=== PATIENT | male | born 1945 | race Caucasian/White ===

== ENCOUNTER 2019-09-02 09:46 | Outpatient (CLI) | payer OTHER, MEDICARE, SELFPAY ==
--- NOTE | 2019-09-02 10:00 | CT_ITS ---
WS: [id number] CT LUNG CANCER SCREENING DLP: 76.83 mGy.cm DIvol: 2.12 mGy CLINICAL INFORMATION SCREENING VISIT: Baseline COMPARISON: None available. FINDINGS Diagnostic quality: Satisfactory Comments: Very minimal motion artifact at the lung bases. Lung Nodules: No pulmonary nodules are identified. Lungs: Hyperinflated lungs with changes of emphysema. Benign granuloma at the medial RIGHT apex. No e ndobronchial lesions. Heart: Normal size. Other findings: Moderate atherosclerosis of the aorta. No aneurysm. There is extensive calcification within the LEFT anterior coronary artery. Mild calcification in the main coronary and circumflex and RIGHT coronary artery. Normal size pulmonary artery. CT/CT lung screening [id number] IMPRESSION: LUNG-RADS: 1S-Negative with Significant Findings FOLLOW UP: 12 Month: Continue annual screening with LDCT 1. Moderate coronary artery atherosclerosis.
== END 2019-09-02 09:47 | disposition home or self-care (01) ==
LOC: RAD 09:55
PROVIDERS: PCP Emergency Medicine Emergency Medical Services; Visit Provider Internal Medicine Critical Care Medicine
DX: Z12.2 Encounter for screening for malignant neoplasm of respiratory organs (principal); F17.210 Nicotine dependence, cigarettes, uncomplicated; I25.10 Atherosclerotic heart disease of native coronary artery without angina pectoris
CPT/HCPCS: G0297

== ENCOUNTER 2019-10-02 06:53 | Outpatient (CLI) | payer OTHER, SELFPAY ==
--- NOTE | 2019-10-02 14:33 | PFTS_ITS ---
Date of Study:10/02/19 Date of Dictation: MECHANICS: Forced vital capacity (FVC) is normal. Forced expiratory volume in one second (FEV1) is reduced. FEV1/FVC is reduced. FLOW VOLUME LOOP: Reduced right lung volumes with significant. LUNG VOLUMES: Total lung capacity (TLC) is elevated. Residual volume (RV) is elevated. DIFFUSING CAPACITY FOR CARBON MONOXIDE: Moderately reduced. INTERPRETATION: The pulmonary function tests are consistent with moderate airflow obstruction. There is no significant postbronchodilator response. Lung volumes are consistent with air trapping and hyperinflation. Gas exchange (DLCO) is moderately reduced. MTDD
== END 2019-10-02 06:54 | disposition home or self-care (01) ==
LOC: RT 06:54
PROVIDERS: Family Provider Emergency Medicine Emergency Medical Services; PCP Emergency Medicine Emergency Medical Services; Visit Provider Internal Medicine Critical Care Medicine
DX: J44.9 Chronic obstructive pulmonary disease, unspecified (principal)
CPT/HCPCS: 94060; 94726; 94729; J7611

== ENCOUNTER 2020-04-06 06:54 | Outpatient (CLI) | payer OTHER, SELFPAY ==
--- NOTE | 2020-04-06 | XR_ITS ---
WS: [id number] Exam: XR chest 2V* [id number] Date/Time of Exam: 04/06/2020 7:41 AM Reason For Exam: NEOPLASM OF UNCERTAIN BEHAVIOR OF TONGUE Comparison 02/23/2010. The lungs are hyperinflated and clear. Normal cardiomediastinal structures and bony elements. No pleu ral effusion. XR/XR chest 2V* [id number] IMPRESSION: 1. Pulmonary hyperinflation which might indicate obstructive lung disease. No a cute process.
[2020-04-06 07:39] LABS: Basophils # 0.2 10^3/uL (0.0-0.1); Basophils % 1.5 %; Eosinophils # 0.2 10^3/uL (0.0-0.8); Eosinophils % 2.1 %; Hematocrit 44.3 % (42.0-52.0); Hemoglobin 14.2 g/dL (11.7-16.6); Lymphocytes # 1.8 10^3/uL (0.8-4.8); Mean Corpuscular HGB Conc 32.1 g/dL (30.0-36.0); Mean Corpuscular Hemoglobin 29.7 pg (28.0-34.0); Mean Corpuscular Volume 92.7 fL (80-94); Mean Platelet Volume 9.7 fL (7.4-10.4); Neutrophils # 7.13 10^3/uL (1.8-7.7); Nucleated Red Blood Cells % 0 %; Platelet Count 286 10^3/cmm (130-400); Red Blood Count 4.78 10^6/uL (4.1-5.3); Red Cell Distribution Width 13.3 % (12.1-15.1); White Blood Count 10.3 10^3/uL (4.0-10.0)
[2020-04-06 08:07] LABS: Alanine Aminotransferase 11 U/L (0-41); Albumin Level 3.7 g/dL (3.5-5.2); Alkaline Phosphatase 120 IU/L (40-130); Anion Gap 13.8 (5-19); Aspartate Amino Transferase 14 U/L (0-40); Blood Urea Nitrogen 9 mg/dL (8-23); Carbon Dioxide 26 mmol/L (22-29); Chloride 102 mmol/L (98-107); Glucose 126 mg/dL (65-115); Osmolality Calculated 284 mOsm/kg (285-295); Potassium 4.8 mmol/L (3.5-5.1); Sodium 137 mmol/L (136-145); Thyroid Stimulating Hormone 2.68 uIU/mL (0.27-4.20); Total Bilirubin 0.4 mg/dL (0.15-1.2); Total Protein 6.7 g/dL (6.6-8.7)
== END 2020-04-06 06:55 | disposition home or self-care (01) ==
PROVIDERS: PCP Emergency Medicine Emergency Medical Services; Visit Provider Specialist
DX: D37.02 Neoplasm of uncertain behavior of tongue (principal)
CPT/HCPCS: 36415; 71046; 80053; 84443; 85025

== ENCOUNTER 2020-04-06 08:05 | Outpatient (CLI) | payer OTHER, SELFPAY ==
--- NOTE | 2020-04-06 08:17 | CT_ITS ---
WS: [id number] Exam: CT neck w con* [id number] Date/Time of Exam: 04/06/2020 8:17 AM Reason For Exam: NEOPLASM OF UNCERTAIN BEHAVIOR OF TONGUE DLP: 1771.[address] scans at [facility] use at least one of these dose optimization techniques: automat ed exposure control; mA and/or kV adjustment per patient size (includes targeted exams where dose is matched to clinical indication); or iterative reconstruction. The neck is evaluated in the axial plane with sagittal and coronal reformatted images. 100 mL of angelica onic contrast administered intravenously. No sign of neck mass or significant cervical lymphadenopathy. No lesions seen in the region of the to ngue base. The submandibular glands and parotid glands are symmetrical side to side. The airway is pa tent. Vascular structures are unremarkable. Fluid-filled left maxillary sinus. Remaining facial sinus es were clear. No fracture or bone destruction noted. Visualized upper lung zones are clear. 6.7 mm l ow-attenuation nodule in the right thyroid lobe which may represent a colloid cyst. No superior media stinal lymphadenopathy. Degenerative changes of the cervical spine. Posterior disc bulge at C3-4. Deg enerative disc changes at C6-7. CT/CT neck w con* [id number] IMPRESSION: 1. No sign of neck mass or significant cervical lymphadenopathy. 2. Fluid-filled left maxillary sinus. 3. Nonspecific 6.7 mm low-density nodule in the right thyroid lobe that may rep resent a colloid cyst. 4. Other minor findings as detailed above.
[2020-04-06] MEDS: iohexol 300 mg/mL 100 mL Btl IV (08:45)
== END 2020-04-06 08:06 | disposition home or self-care (01) ==
LOC: RADWPI 08:09
PROVIDERS: PCP Emergency Medicine Emergency Medical Services; Visit Provider Specialist
DX: D37.02 Neoplasm of uncertain behavior of tongue (principal); E04.1 Nontoxic single thyroid nodule
CPT/HCPCS: 70491; Q9967

== ENCOUNTER 2020-06-09 14:19 | Emergency (ER) | payer OTHER, MEDICARE, SELFPAY ==
[2020-06-09 14:23] VITALS: BP 99/56; PULSE 71; RESP 26; TEMP 37; O2SAT 97; BMI 24.4
--- NOTE | 2020-06-09 14:32 | XR_ITS ---
WS: [id number] Portable AP upright chest, 06/09/2020 Clinical Data: dyspnea Comparison: PA and lateral chest, 04/06/2020. Findings: No nodules, masses or effusions are seen. The heart is normal. The pulmonary vascularity is not increased. No pneumonia or pneumothorax is seen. The aortic arch and descending aorta show calci fication and tortuosity. XR/XR chest 1V portable [id number] Impression: Atherosclerosis.
--- NOTE | 2020-06-09 14:35 | ECG_ITS ---
[facility] Test Date: 2020-06-09 Pat Name: Asif Sky Department: Room: Gender: Male [employer]: : 1945 Requested By: Ivan Lambert Order Number: [id number] Jacobo MD: Nick Booker M.D. Measurements Intervals Theresa Rate: 66 P: -82 AL: 197 QRS: 29 QRSD: 101 T: 69 QT: 365 QTc: 384 Interpretive Statements SINUS RHYTHM No previous ECG available for comparison Electronically Signed On 06-09-2020 20:56:28 [employer] by Nick Booker M.D. [email or web address]
--- NOTE | 2020-06-09 14:42 | ED_ITS ---
Documented by User: Ivan Lambert MD 06/13/20 13:39 HPI - SOB/Dyspnea General: Chief Complaint: Shortness of Breath/Dyspnea Stated Complaint: CONFUSION, SOB Time Seen by Provider: 06/09/20 14:23 History of Present Illness: HPI Narrative: the patient is a 75 year old male with PMH COPD and tongue cancer s/p left forearm muscle autotransplantation to his tongue. The surgery was early may. Left forearm has open wound with exposed tendon and erythema likely cellulitis. MD elicited complaint: shortness of breath Pertinent past history: COPD Onset (ago): day(s) (1) Context: medication noncompliance and other (smoking) Timing: constant and progressively worsening Exacerbating factors: exertion Relieving factors: nothing Known history of: COPD Associated symptoms: Deny abdominal pain, chest pain, dizziness, extremity pain, orthopnea, palpitations or polyuria Review of Systems General: Reports: 10 or more systems reviewed and unremarkable except in HPI and below Const: Denies: fatigue Eyes: Denies: change in vision, blurry vision or eye redness ENMT: Denies: throat pain, swelling of lips/tongue, ear or mastoid pain or nasal congestion Card: Denies: chest pain, palpitations, irregular heart rhythm, edema, dyspnea on exertion or orthopnea Resp: Reports: dyspnea, non-productive cough and wheezing; Denies: productive cough GI: Denies: abdominal pain, diarrhea or GI cramping : Denies: flank pain, urinary frequency or urinary urgency Musc: Denies: neck pain, back pain, extremity pain, joint pain, joint redness, limited range of motion or muscle weakness Skin/Breast: Reports: rash and skin pain (left forearm); Denies: pruritus, erythema or skin tenderness Neuro: Denies: headache(s), numbness in extremities, weakness in extremities, sensory changes, difficulty walking, dizziness, confusion or Slurred speech present Psych: Denies: anxiety or depression Endo: Denies: polyuria All/Imm: Denies: urticaria, throat swelling or tongue swelling PFSH ED PFSH: Medical History (Updated 06/09/20 @ 20:08 by Perry Felton MD) BPH (benign prostatic hyperplasia) Chronic ischemic heart disease COPD (chronic obstructive pulmonary disease) Depression with anxiety HTN (hypertension) Hypercalcemia Hyperlipidemia Impotence Lumbago MIKE (obstructive sleep apnea) PVD (peripheral vascular disease) Type 2 diabetes mellitus Social History Smoking and tobacco status: current every day smoker cigarettes Packs smoked per day: 1 Years cigarettes smoked: 55 Quit status (tobacco): not considering quitting Alcohol intake: current Alcohol intake frequency: 0-2 Drinks per Day Alcohol type: beer Caregiver/support person: Yes Lives independently: Yes Household members: family service: Yes Current occupational status: retired and disabled History of recent travel: No Current gender identity: Male Physical Exam Const: COMMON NORMALS: patient oriented x3 and alert GENERAL APPEARANCE: well kempt, disheveled and frail appearing ORIENTATION/CONSCIOUSNESS: Yes oriented to person, Yes oriented to place and Yes oriented to time HENMT: COMMON NORMALS: normocephalic, external ears normal and Normal external nose present HEAD & SCALP: normal to inspection and normocephalic NOSE: Normal external nose present EXTERNAL EAR: Yes external ears normal MOUTH: Normal oral and palatal mucosa present THROAT: posterior oropharynx normal Eye: COMMON NORMALS: Equal, round and reactive pupils present and EOMs intact bilaterally GENERAL EYE: appearance normal, both eyes and all related structures PUPIL: Yes Equal, round and reactive pupils present Neck/C-Spine: COMMON NORMALS: full ROM, no lymphadenopathy, no meningeal signs and no JVD GENERAL: Yes normal visual inspection Lymph: LYMPHATIC: no lymphadenopathy noted Chest: COMMONS NORMALS: normal inspection of the chest and normal palpation of entire chest wall Resp: EFFORT & INSPECTION: Yes tachypneic, Yes respiratory distress (mild increased work of breathing.), Yes uses accessory muscles and Yes other OTHER: hoarse breathing and voice. Tongue autotransplantation seen. Wheezes bilaterally. Shallow breathing. Tachypnea. Cardio: COMMON NORMALS: no JVD, regular rate, regular rhythm, S1 normal heart sound present, S2 normal heart sound present and Peripheral pulses 2+ throughout RATE: regular rate RHYTHM: regular rhythm HEART SOUNDS: S1 normal heart sound present and S2 normal heart sound present PERIPHERAL PULSES: Peripheral pulses 2+ throughout GI: COMMON NORMALS: Normal to inspection, nondistended, normoactive bowel sounds present, Soft to palpation, non-tender and no masses INSPECTION: Yes normal to inspection PALPATION: Yes Soft to palpation : COMMON NORMALS: Yes no CVA tenderness BLADDER/KIDNEY EXAM: Yes no CVA tenderness Back/Pelvis: COMMON NORMALS: no CVA tenderness, thoracic and lumbar spine normal to inspection, no thoracic nor lumbar tenderness and thoraco-lumbar ROM normal Extremity: COMMON NORMALS: normal to inspection, full ROM, capillary refill normal, no joint enlargement and no pedal edema GENERAL: Yes normal exam except as noted Neuro: COMMON NORMALS: patient oriented x3, CN's II-XII intact bilaterally, moves all extremities, no focal motor deficits, no sensory deficits noted and gait normal SENSORIUM/ORIENTATION: Yes alert, Yes oriented to person, Yes oriented to place and Yes oriented to time MENINGEAL SIGNS: Yes no meningeal signs Psych: COMMON NORMALS: mental status grossly normal, Normal thought process present, cooperative, normal affect and speech normal APPEARANCE: Yes well kempt ATTITUDE: Yes calm SPEECH: Yes normal speech THOUGHT PROCESS: Normal thought process present Skin: COMMON NORMALS: no rashes or lesions noted NARRATIVE SKIN EXAM: left forearm length pollack surgical wound 8 to 10 inches long with 3 to 5 cm surrounding cellulitis. Worse at distal aspect wound open with tendon exposed. GENERAL SKIN EXAM: no rashes or lesions noted Course Vital Signs: Vital signs: Vital Signs Temperature 97.4 F L 06/09/20 21:08 Pulse Rate 63 06/09/20 21:08 Respiratory Rate 21 H 06/09/20 21:08 Blood Pressure 110/59 06/09/20 21:08 Pulse Oximetry 97 06/09/20 21:08 MDM - SOB/Dyspnea Lab Data: Labs: Lab Results 06/09/20 06/09/20 06/09/20 Range/Units 14:35 15:14 15:26 WBC (4.0-10.0) 10^3/ uL RBC (4.1-5.3) 10^6/u L Hgb (11.7-16.6) g/dL Hct (42.0-52.0) % MCV (80-94) fL MCH (28.0-34.0) pg MCHC (30.0-36.0) g/dL RDW (12.1-15.1) % Plt Count (130-400) 10^3/c mm MPV (7.4-10.4) fL Neut % (Auto) % Lymph % (Auto) % [place] % (Auto) % Eos % (Auto) % Baso % (Auto) % Neut # (Auto) (1.8-7.7) 10^3/u L Lymph # (Auto) (0.8-4.8) 10^3/u L [place] # (Auto) (0.2-0.9) 10^3/u L Eos # (Auto) (0.0-0.8) 10^3/u L Baso # (Auto) (0.0-0.1) 10^3/u L Nucleated RBC % (a uto) % Nucleated RBCs # /100WBC Specimen Type Arterial Sample Site Radial, right ABG pH 7.42 (7.35-7.45) ABG pCO2 43.5 (35-45) mmHg ABG pO2 75.9 L (80.0-100.0) mmH g ABG HCO3 28.2 H (22-26) mmol/L ABG Base Excess 3.3 H (-2.0-2.0) mmol/ L Ammon Test Pos Hematocrit 32.0 L (42-52) % Hgb O2 Saturation 93.5 L (95-100) % Carboxyhemoglobin 1.4 (0.4-20.1) %THgb Methemoglobin 0.8 (0.4-1.5) % Total Hemoglobin 10.4 L (14-18) g/dL O2 Delivery Device Nc O2 Liters/Min 3.0 % FiO2 32.0 % [employer] ID [place] Sodium (136-145) mmol/L Potassium (3.5-5.1) mmol/L Chloride (98-107) mmol/L Carbon Dioxide (22-29) mmol/L Anion Gap (5-19) BUN (8-23) mg/dL Creatinine (0.7-1.2) mg/dL GFR Calculation Glucose (65-115) mg/dL Calculated Osmolal ity (285-295) mOsm/k g Lactate (0.5-2.2) mmol/L Calcium (8.5-10.5) mg/dL Total Bilirubin (0.15-1.2) mg/dL AST (0-40) U/L ALT (0-41) U/L Alkaline Phosphata se (40-130) IU/L Troponin T Baselin e (0-15) ng/L Troponin T 120 Min [place] (0-15) ng/L Delta Troponin T (0-10) ABS# NT-Pro-B Natriuret Pep (0-125) pg/mL Total Protein (6.6-8.7) g/dL Albumin (3.5-5.2) g/dL Globulin (1.3-4.6) g/dL Urine Color Yellow (Yellow) Urine Appearance Clear (CLEAR) Urine pH 7 (5-7) Ur Specific Gravit y 1.005 (1.005-1.030) Urine Protein Neg (Negative) Urine Glucose (UA) Norm (Normal) Urine Ketones Negative (Negative) Urine Blood Neg (Negative) Urine Nitrate Negative (Negative) Urine Bilirubin Neg (Negative) Urine Urobilinogen Norm (Negative) mg/dL Ur Leukocyte Yvonne ase Negative (Negative) SARS-CoV-2 Ag (Rap id) Negative (Negative) 06/09/20 06/09/20 06/09/20 Range/Units 16:33 16:33 16:33 WBC 12.7 H (4.0-10.0) 10^3/ uL RBC 3.73 L (4.1-5.3) 10^6/u L Hgb 10.9 L (11.7-16.6) g/dL Hct 34.4 L (42.0-52.0) % MCV 92.2 (80-94) fL MCH 29.2 (28.0-34.0) pg MCHC 31.7 (30.0-36.0) g/dL RDW 12.0 L (12.1-15.1) % Plt Count 314 (130-400) 10^3/c mm MPV 11.2 H (7.4-10.4) fL Neut % (Auto) 68.8 % Lymph % (Auto) 16.7 % [place] % (Auto) 9.2 % Eos % (Auto) 3.9 % Baso % (Auto) 1.2 % Neut # (Auto) 8.76 H (1.8-7.7) 10^3/u L Lymph # (Auto) 2.1 (0.8-4.8) 10^3/u L [place] # (Auto) 1.2 H (0.2-0.9) 10^3/u L Eos # (Auto) 0.5 (0.0-0.8) 10^3/u L Baso # (Auto) 0.2 H (0.0-0.1) 10^3/u L Nucleated RBC % (a uto) 0 % Nucleated RBCs # 0.0 /100WBC Specimen Type Sample Site ABG pH (7.35-7.45) ABG pCO2 (35-45) mmHg ABG pO2 (80.0-100.0) mmH g ABG HCO3 (22-26) mmol/L ABG Base Excess (-2.0-2.0) mmol/ L Ammon Test Hematocrit (42-52) % Hgb O2 Saturation (95-100) % Carboxyhemoglobin (0.4-20.1) %THgb Methemoglobin (0.4-1.5) % Total Hemoglobin (14-18) g/dL O2 Delivery Device O2 Liters/Min % FiO2 % [employer] ID Sodium 139 (136-145) mmol/L Potassium 5.2 H (3.5-5.1) mmol/L Chloride 102 (98-107) mmol/L Carbon Dioxide 29 (22-29) mmol/L Anion Gap 13.2 (5-19) BUN 46 H (8-23) mg/dL Creatinine 2.0 H (0.7-1.2) mg/dL GFR Calculation Not Reportable Glucose 93 (65-115) mg/dL Calculated Osmolal ity 300 H (285-295) mOsm/k g Lactate 0.6 (0.5-2.2) mmol/L Calcium 10.7 H (8.5-10.5) mg/dL Total Bilirubin 0.5 (0.15-1.2) mg/dL AST 11 (0-40) U/L ALT 11 (0-41) U/L Alkaline Phosphata se 156 H (40-130) IU/L Troponin T Baselin e (0-15) ng/L Troponin T 120 Min [place] (0-15) ng/L Delta Troponin T (0-10) ABS# NT-Pro-B Natriuret Pep 199 H (0-125) pg/mL Total Protein 6.1 L (6.6-8.7) g/dL Albumin 3.4 L (3.5-5.2) g/dL Globulin 2.7 (1.3-4.6) g/dL Urine Color (Yellow) Urine Appearance (CLEAR) Urine pH (5-7) Ur Specific Gravit y (1.005-1.030) Urine Protein (Negative) Urine Glucose (UA) (Normal) Urine Ketones (Negative) Urine Blood (Negative) Urine Nitrate (Negative) Urine Bilirubin (Negative) Urine Urobilinogen (Negative) mg/dL Ur Leukocyte Yvonne ase (Negative) SARS-CoV-2 Ag (Rap id) (Negative) 06/09/20 06/09/20 Range/Units 16:33 18:42 WBC (4.0-10.0) 10^3/ uL RBC (4.1-5.3) 10^6/u L Hgb (11.7-16.6) g/dL Hct (42.0-52.0) % MCV (80-94) fL MCH (28.0-34.0) pg MCHC (30.0-36.0) g/dL RDW (12.1-15.1) % Plt Count (130-400) 10^3/c mm MPV (7.4-10.4) fL Neut % (Auto) % Lymph % (Auto) % [place] % (Auto) % Eos % (Auto) % Baso % (Auto) % Neut # (Auto) (1.8-7.7) 10^3/u L Lymph # (Auto) (0.8-4.8) 10^3/u L [place] # (Auto) (0.2-0.9) 10^3/u L Eos # (Auto) (0.0-0.8) 10^3/u L Baso # (Auto) (0.0-0.1) 10^3/u L Nucleated RBC % (a uto) % Nucleated RBCs # /100WBC Specimen Type Sample Site ABG pH (7.35-7.45) ABG pCO2 (35-45) mmHg ABG pO2 (80.0-100.0) mmH g ABG HCO3 (22-26) mmol/L ABG Base Excess (-2.0-2.0) mmol/ L Ammon Test Hematocrit (42-52) % Hgb O2 Saturation (95-100) % Carboxyhemoglobin (0.4-20.1) %THgb Methemoglobin (0.4-1.5) % Total Hemoglobin (14-18) g/dL O2 Delivery Device O2 Liters/Min % FiO2 % [employer] ID Sodium (136-145) mmol/L Potassium (3.5-5.1) mmol/L Chloride (98-107) mmol/L Carbon Dioxide (22-29) mmol/L Anion Gap (5-19) BUN (8-23) mg/dL Creatinine (0.7-1.2) mg/dL GFR Calculation Glucose (65-115) mg/dL Calculated Osmolal ity (285-295) mOsm/k g Lactate (0.5-2.2) mmol/L Calcium (8.5-10.5) mg/dL Total Bilirubin (0.15-1.2) mg/dL AST (0-40) U/L ALT (0-41) U/L Alkaline Phosphata se (40-130) IU/L Troponin T Baselin e 42 H (0-15) ng/L Troponin T 120 Min [place] 22.13 H (0-15) ng/L Delta Troponin T -19.87 L (0-10) ABS# NT-Pro-B Natriuret Pep (0-125) pg/mL Total Protein (6.6-8.7) g/dL Albumin (3.5-5.2) g/dL Globulin (1.3-4.6) g/dL Urine Color (Yellow) Urine Appearance (CLEAR) Urine pH (5-7) Ur Specific Gravit y (1.005-1.030) Urine Protein (Negative) Urine Glucose (UA) (Normal) Urine Ketones (Negative) Urine Blood (Negative) Urine Nitrate (Negative) Urine Bilirubin (Negative) Urine Urobilinogen (Negative) mg/dL Ur Leukocyte Yvonne ase (Negative) SARS-CoV-2 Ag (Rap id) (Negative) Discharge Plan Discharge Patient Disposition: Home Clinical Impression: Dyspnea, Arm wound Condition: Stable Prescriptions: New Silvadene 1 % cream 1 applic topical BID Qty: 50 RF: 0 No Action amlodipine 10 mg tablet 10 mg PO DAILY RF: 0 atenolol 100 mg tablet 100 mg PO BEDTIME RF: 0 atorvastatin 80 mg tablet 40 mg PO DAILY RF: 0 buspirone 15 mg tablet 15 mg PO BID RF: 0 cetirizine 10 mg tablet 10 mg PO DAILY PRN (Reason: Allergy Symptoms) RF: 0 cyclobenzaprine 10 mg tablet 10 mg PO BID PRN (Reason: MUSCLE CRAMPS) RF: 0 folic acid 1 mg tablet 1 mg PO DAILY RF: 0 gabapentin 300 mg capsule 300 mg PO TID RF: 0 lisinopril 40 mg tablet 40 mg PO DAILY@1200 RF: 0 tamsulosin 0.4 mg capsule 0.8 mg PO DAILY RF: 0 trazodone 100 mg tablet 50 mg PO BEDTIME RF: 0 cholecalciferol (vitamin D3) 25 mcg (1,000 unit) capsule 25 mcg PO DAILY@1200 RF: 0 venlafaxine 75 mg tablet 225 mg PO DAILY RF: 0 hydroxyzine HCl 25 mg tablet 25 mg PO BEDTIME PRN (Reason: UNKNOWN) RF: 0 thiamine HCl (vitamin B1) 100 mg tablet 100 mg PO DAILY@1200 RF: 0 aspirin [Adult Aspirin Regimen] 81 mg tablet,delayed release (DR/EC) 81 mg PO DAILY RF: 0 budesonide-formoterol [Symbicort] 160-4.5 mcg/actuation HFA aerosol inhaler 2 puff INHALATION BID 30 Days Qty: 10.2 RF: 3 Spiriva with HandiHaler 18 mcg capsule, w/inhalation device 1 cap INHALATION DAILY 30 Days Qty: 60 RF: 3 Discharge Orders: Discharge ED (Routine); Ordered 06/09/20 Ordered By: Perry Felton Referrals: adebayo butcher [Other] Miguelito Benson DO [Primary Care Provider] - Discharge Diet: Advance as tolerated Discharge Activity: Resume usual activity Patient Instructions: Wound Care (General) Activity Restrictions/Additional Instructions: Dressing change twice daily Coding Level of Care Code ED Manager Channel for Chg Fwd Exam Comprehensive Documented by User: Perry Felton MD 06/09/20 20:55 HPI - SOB/Dyspnea General: Chief Complaint: Shortness of Breath/Dyspnea Stated Complaint: CONFUSION, SOB Time Seen by Provider: 06/09/20 14:23 PFSH ED PFSH: Medical History (Updated 06/09/20 @ 20:08 by Perry Felton MD) BPH (benign prostatic hyperplasia) Chronic ischemic heart disease COPD (chronic obstructive pulmonary disease) Depression with anxiety HTN (hypertension) Hypercalcemia Hyperlipidemia Impotence Lumbago MIKE (obstructive sleep apnea) PVD (peripheral vascular disease) Type 2 diabetes mellitus Social History Smoking and tobacco status: current every day smoker cigarettes Packs smoked per day: 1 Years cigarettes smoked: 55 Quit status (tobacco): not considering quitting Alcohol intake: current Alcohol intake frequency: 0-2 Drinks per Day Alcohol type: beer Caregiver/support person: Yes Lives independently: Yes Household members: family service: Yes Current occupational status: retired and disabled History of recent travel: No Current gender identity: Male Course Vital Signs: Vital signs: Vital Signs Temperature 97.4 F L 06/09/20 21:08 Pulse Rate 63 06/09/20 21:08 Respiratory Rate 21 H 06/09/20 21:08 Blood Pressure 110/59 06/09/20 21:08 Pulse Oximetry 97 06/09/20 21:08 MDM - SOB/Dyspnea MDM Narrative: Medical decision making narrative: Took patient over from Dr. Lin. Patient does have open wound where his graft is with no signs of cellulitis at this time. Images were sent to plastic surgeon and [facility] Dr. Butcher who recommended Silvadene dressings and he is going to follow him up as outpatient. I discussed this with his family and he is in agreements. Patient stable for discharge and return if worsening. Lab Data: Labs: Lab Results 06/09/20 06/09/20 06/09/20 Range/Units 14:35 15:14 15:26 WBC (4.0-10.0) 10^3/ uL RBC (4.1-5.3) 10^6/u L Hgb (11.7-16.6) g/dL Hct (42.0-52.0) % MCV (80-94) fL MCH (28.0-34.0) pg MCHC (30.0-36.0) g/dL RDW (12.1-15.1) % Plt Count (130-400) 10^3/c mm MPV (7.4-10.4) fL Neut % (Auto) % Lymph % (Auto) % [place] % (Auto) % Eos % (Auto) % Baso % (Auto) % Neut # (Auto) (1.8-7.7) 10^3/u L Lymph # (Auto) (0.8-4.8) 10^3/u L [place] # (Auto) (0.2-0.9) 10^3/u L Eos # (Auto) (0.0-0.8) 10^3/u L Baso # (Auto) (0.0-0.1) 10^3/u L Nucleated RBC % (a uto) % Nucleated RBCs # /100WBC Specimen Type Arterial Sample Site Radial, right ABG pH 7.42 (7.35-7.45) ABG pCO2 43.5 (35-45) mmHg ABG pO2 75.9 L (80.0-100.0) mmH g ABG HCO3 28.2 H (22-26) mmol/L ABG Base Excess 3.3 H (-2.0-2.0) mmol/ L Ammon Test Pos Hematocrit 32.0 L (42-52) % Hgb O2 Saturation 93.5 L (95-100) % Carboxyhemoglobin 1.4 (0.4-20.1) %THgb Methemoglobin 0.8 (0.4-1.5) % Total Hemoglobin 10.4 L (14-18) g/dL O2 Delivery Device Nc O2 Liters/Min 3.0 % FiO2 32.0 % [employer] ID [place] Sodium (136-145) mmol/L Potassium (3.5-5.1) mmol/L Chloride (98-107) mmol/L Carbon Dioxide (22-29) mmol/L Anion Gap (5-19) BUN (8-23) mg/dL Creatinine (0.7-1.2) mg/dL GFR Calculation Glucose (65-115) mg/dL Calculated Osmolal ity (285-295) mOsm/k g Lactate (0.5-2.2) mmol/L Calcium (8.5-10.5) mg/dL Total Bilirubin (0.15-1.2) mg/dL AST (0-40) U/L ALT (0-41) U/L Alkaline Phosphata se (40-130) IU/L Troponin T Baselin e (0-15) ng/L Troponin T 120 Min [place] (0-15) ng/L Delta Troponin T (0-10) ABS# NT-Pro-B Natriuret Pep (0-125) pg/mL Total Protein (6.6-8.7) g/dL Albumin (3.5-5.2) g/dL Globulin (1.3-4.6) g/dL Urine Color Yellow (Yellow) Urine Appearance Clear (CLEAR) Urine pH 7 (5-7) Ur Specific Gravit y 1.005 (1.005-1.030) Urine Protein Neg (Negative) Urine Glucose (UA) Norm (Normal) Urine Ketones Negative (Negative) Urine Blood Neg (Negative) Urine Nitrate Negative (Negative) Urine Bilirubin Neg (Negative) Urine Urobilinogen Norm (Negative) mg/dL Ur Leukocyte Yvonne ase Negative (Negative) SARS-CoV-2 Ag (Rap id) Negative (Negative) 06/09/20 06/09/20 06/09/20 Range/Units 16:33 16:33 16:33 WBC 12.7 H (4.0-10.0) 10^3/ uL RBC 3.73 L (4.1-5.3) 10^6/u L Hgb 10.9 L (11.7-16.6) g/dL Hct 34.4 L (42.0-52.0) % MCV 92.2 (80-94) fL MCH 29.2 (28.0-34.0) pg MCHC 31.7 (30.0-36.0) g/dL RDW 12.0 L (12.1-15.1) % Plt Count 314 (130-400) 10^3/c mm MPV 11.2 H (7.4-10.4) fL Neut % (Auto) 68.8 % Lymph % (Auto) 16.7 % [place] % (Auto) 9.2 % Eos % (Auto) 3.9 % Baso % (Auto) 1.2 % Neut # (Auto) 8.76 H (1.8-7.7) 10^3/u L Lymph # (Auto) 2.1 (0.8-4.8) 10^3/u L [place] # (Auto) 1.2 H (0.2-0.9) 10^3/u L Eos # (Auto) 0.5 (0.0-0.8) 10^3/u L Baso # (Auto) 0.2 H (0.0-0.1) 10^3/u L Nucleated RBC % (a uto) 0 % Nucleated RBCs # 0.0 /100WBC Specimen Type Sample Site ABG pH (7.35-7.45) ABG pCO2 (35-45) mmHg ABG pO2 (80.0-100.0) mmH g ABG HCO3 (22-26) mmol/L ABG Base Excess (-2.0-2.0) mmol/ L Ammon Test Hematocrit (42-52) % Hgb O2 Saturation (95-100) % Carboxyhemoglobin (0.4-20.1) %THgb Methemoglobin (0.4-1.5) % Total Hemoglobin (14-18) g/dL O2 Delivery Device O2 Liters/Min % FiO2 % [employer] ID Sodium 139 (136-145) mmol/L Potassium 5.2 H (3.5-5.1) mmol/L Chloride 102 (98-107) mmol/L Carbon Dioxide 29 (22-29) mmol/L Anion Gap 13.2 (5-19) BUN 46 H (8-23) mg/dL Creatinine 2.0 H (0.7-1.2) mg/dL GFR Calculation Not Reportable Glucose 93 (65-115) mg/dL Calculated Osmolal ity 300 H (285-295) mOsm/k g Lactate 0.6 (0.5-2.2) mmol/L Calcium 10.7 H (8.5-10.5) mg/dL Total Bilirubin 0.5 (0.15-1.2) mg/dL AST 11 (0-40) U/L ALT 11 (0-41) U/L Alkaline Phosphata se 156 H (40-130) IU/L Troponin T Baselin e (0-15) ng/L Troponin T 120 Min [place] (0-15) ng/L Delta Troponin T (0-10) ABS# NT-Pro-B Natriuret Pep 199 H (0-125) pg/mL Total Protein 6.1 L (6.6-8.7) g/dL Albumin 3.4 L (3.5-5.2) g/dL Globulin 2.7 (1.3-4.6) g/dL Urine Color (Yellow) Urine Appearance (CLEAR) Urine pH (5-7) Ur Specific Gravit y (1.005-1.030) Urine Protein (Negative) Urine Glucose (UA) (Normal) Urine Ketones (Negative) Urine Blood (Negative) Urine Nitrate (Negative) Urine Bilirubin (Negative) Urine Urobilinogen (Negative) mg/dL Ur Leukocyte Yvonne ase (Negative) SARS-CoV-2 Ag (Rap id) (Negative) 06/09/20 06/09/20 Range/Units 16:33 18:42 WBC (4.0-10.0) 10^3/ uL RBC (4.1-5.3) 10^6/u L Hgb (11.7-16.6) g/dL Hct (42.0-52.0) % MCV (80-94) fL MCH (28.0-34.0) pg MCHC (30.0-36.0) g/dL RDW (12.1-15.1) % Plt Count (130-400) 10^3/c mm MPV (7.4-10.4) fL Neut % (Auto) % Lymph % (Auto) % [place] % (Auto) % Eos % (Auto) % Baso % (Auto) % Neut # (Auto) (1.8-7.7) 10^3/u L Lymph # (Auto) (0.8-4.8) 10^3/u L [place] # (Auto) (0.2-0.9) 10^3/u L Eos # (Auto) (0.0-0.8) 10^3/u L Baso # (Auto) (0.0-0.1) 10^3/u L Nucleated RBC % (a uto) % Nucleated RBCs # /100WBC Specimen Type Sample Site ABG pH (7.35-7.45) ABG pCO2 (35-45) mmHg ABG pO2 (80.0-100.0) mmH g ABG HCO3 (22-26) mmol/L ABG Base Excess (-2.0-2.0) mmol/ L Ammon Test Hematocrit (42-52) % Hgb O2 Saturation (95-100) % Carboxyhemoglobin (0.4-20.1) %THgb Methemoglobin (0.4-1.5) % Total Hemoglobin (14-18) g/dL O2 Delivery Device O2 Liters/Min % FiO2 % [employer] ID Sodium (136-145) mmol/L Potassium (3.5-5.1) mmol/L Chloride (98-107) mmol/L Carbon Dioxide (22-29) mmol/L Anion Gap (5-19) BUN (8-23) mg/dL Creatinine (0.7-1.2) mg/dL GFR Calculation Glucose (65-115) mg/dL Calculated Osmolal ity (285-295) mOsm/k g Lactate (0.5-2.2) mmol/L Calcium (8.5-10.5) mg/dL Total Bilirubin (0.15-1.2) mg/dL AST (0-40) U/L ALT (0-41) U/L Alkaline Phosphata se (40-130) IU/L Troponin T Baselin e 42 H (0-15) ng/L Troponin T 120 Min [place] 22.13 H (0-15) ng/L Delta Troponin T -19.87 L (0-10) ABS# NT-Pro-B Natriuret Pep (0-125) pg/mL Total Protein (6.6-8.7) g/dL Albumin (3.5-5.2) g/dL Globulin (1.3-4.6) g/dL Urine Color (Yellow) Urine Appearance (CLEAR) Urine pH (5-7) Ur Specific Gravit y (1.005-1.030) Urine Protein (Negative) Urine Glucose (UA) (Normal) Urine Ketones (Negative) Urine Blood (Negative) Urine Nitrate (Negative) Urine Bilirubin (Negative) Urine Urobilinogen (Negative) mg/dL Ur Leukocyte Yvonne ase (Negative) SARS-CoV-2 Ag (Rap id) (Negative) Discharge Plan Discharge Patient Disposition: Home Clinical Impression: Dyspnea, Arm wound Condition: Stable Prescriptions: New Silvadene 1 % cream 1 applic topical BID Qty: 50 RF: 0 No Action amlodipine 10 mg tablet 10 mg PO DAILY RF: 0 atenolol 100 mg tablet 100 mg PO BEDTIME RF: 0 atorvastatin 80 mg tablet 40 mg PO DAILY RF: 0 buspirone 15 mg tablet 15 mg PO BID RF: 0 cetirizine 10 mg tablet 10 mg PO DAILY PRN (Reason: Allergy Symptoms) RF: 0 cyclobenzaprine 10 mg tablet 10 mg PO BID PRN (Reason: MUSCLE CRAMPS) RF: 0 folic acid 1 mg tablet 1 mg PO DAILY RF: 0 gabapentin 300 mg capsule 300 mg PO TID RF: 0 lisinopril 40 mg tablet 40 mg PO DAILY@1200 RF: 0 tamsulosin 0.4 mg capsule 0.8 mg PO DAILY RF: 0 trazodone 100 mg tablet 50 mg PO BEDTIME RF: 0 cholecalciferol (vitamin D3) 25 mcg (1,000 unit) capsule 25 mcg PO DAILY@1200 RF: 0 venlafaxine 75 mg tablet 225 mg PO DAILY RF: 0 hydroxyzine HCl 25 mg tablet 25 mg PO BEDTIME PRN (Reason: UNKNOWN) RF: 0 thiamine HCl (vitamin B1) 100 mg tablet 100 mg PO DAILY@1200 RF: 0 aspirin [Adult Aspirin Regimen] 81 mg tablet,delayed release (DR/EC) 81 mg PO DAILY RF: 0 budesonide-formoterol [Symbicort] 160-4.5 mcg/actuation HFA aerosol inhaler 2 puff INHALATION BID 30 Days Qty: 10.2 RF: 3 Spiriva with HandiHaler 18 mcg capsule, w/inhalation device 1 cap INHALATION DAILY 30 Days Qty: 60 RF: 3 Discharge Orders: Discharge ED (Routine); Ordered 06/09/20 Ordered By: Perry Felton Referrals: [facility] [Other] Miguelito Benson DO [Primary Care Provider] - Discharge Diet: Advance as tolerated Discharge Activity: Resume usual activity Patient Instructions: Wound Care (General) Activity Restrictions/Additional Instructions: Dressing change twice daily Coding Level of Care Code ED Manager Channel for Manuelg Fwd Exam Comprehensive
[2020-06-09 14:48] LABS: ABG PCO2 43.5 mmHg (35-45); ABG PH Result 7.42 (7.35-7.45); Base Excess ABG 3.3 mmol/L (-2.0-2.0); Blood Gas Allen Test Pos; Blood Gas Operator Identificat MONRO; Blood Gas Sample Site Radial, right; Blood Gas Sample Type Arterial; Carboxyhemoglobin 1.4 %THgb (0.4-20.1); HCO3 ABG 28.2 mmol/L (22-26); HGB O2 Sat 93.5 % (95-100); Methemoglobin 0.8 % (0.4-1.5); Oxygen Device NC; PO2 ABG 75.9 mmHg (80.0-100.0); Total Hemoglobin 10.4 g/dL (14-18)
[2020-06-09] MEDS: piperacillin-tazobactam 3.375 GM in sodium chloride 0.9% (plus) 50 ML IV (14:51)
[2020-06-09 15:32] LABS: Add Urine Microscopic? NO
[2020-06-09 15:37] LABS: Bilirubin Urine Neg (Negative); Blood Urine Neg (Negative); Glucose Urine UA Norm (Normal); Ketones Urine Negative (Negative); Leukocyte Esterase Urine Negative (Negative); Nitrate Urine Negative (Negative); Protein Urine Neg (Negative); Specific Gravity, Urine 1.005 (1.005-1.030); Urine Appearance Clear (CLEAR); Urine Color Yellow (Yellow); Urobilinogen Urine Norm (Negative); pH Urine 7 (5-7)
[2020-06-09 15:50] VITALS: BP 103/44; PULSE 63; RESP 22; O2SAT 100
[2020-06-09 16:31] LABS: SARS Covid-2 Antigen Negative (Negative)
--- NOTE | 2020-06-09 16:35 | ECG_ITS ---
[facility] Test Date: 2020-06-09 Pat Name: Asif Sky Department: Room: Gender: Male Batter Mixer: : 1945 Requested By: Ivan Lambert Order Number: [id number] Jacobo MD: Nick Booker M.D. Measurements Intervals [place] Rate: 62 P: 54 [place]: 230 QRS: 47 QRSD: 97 T: 78 QT: 389 QTc: 395 Interpretive Statements SINUS RHYTHM WITH FIRST DEGREE AV BLOCK Compared to ECG 06/09/2020 14:59:59 First degree AV block now present Electronically Signed On 06-09-2020 21:02:14 AIRCRAFT MOTOR MECHANIC by Nick Booker M.D. [email or web address] memorial hospitalMediakraft Türkiyeashtabula general hospitalWhite Castle/store/OM/[id number]
[2020-06-09 16:46] LABS: Basophils # 0.2 10^3/uL (0.0-0.1); Basophils % 1.2 %; Eosinophils # 0.5 10^3/uL (0.0-0.8); Eosinophils % 3.9 %; Hematocrit 34.4 % (42.0-52.0); Hemoglobin 10.9 g/dL (11.7-16.6); Lymphocytes # 2.1 10^3/uL (0.8-4.8); Lymphocytes % 16.7 %; Mean Corpuscular HGB Conc 31.7 g/dL (30.0-36.0); Mean Corpuscular Hemoglobin 29.2 pg (28.0-34.0); Mean Corpuscular Volume 92.2 fL (80-94); Mean Platelet Volume 11.2 fL (7.4-10.4); Monocytes # 1.2 10^3/uL (0.2-0.9); Monocytes % 9.2 %; Neutrophils # 8.76 10^3/uL (1.8-7.7); Neutrophils % 68.8 %; Nucleated Red Blood Cells % 0 %; Platelet Count 314 10^3/cmm (130-400); Red Blood Count 3.73 10^6/uL (4.1-5.3); White Blood Count 12.7 10^3/uL (4.0-10.0)
[2020-06-09] MEDS: vancomycin 1,000 MG in sodium chloride 0.9% 250 ML 250 MG IV (17:04)
[2020-06-09 17:08] LABS: Lactate (Lactic Acid level) 0.6 mmol/L (0.5-2.2)
[2020-06-09 17:22] LABS: Alanine Aminotransferase 11 U/L (0-41); Albumin Level 3.4 g/dL (3.5-5.2); Alkaline Phosphatase 156 IU/L (40-130); Anion Gap 13.2 (5-19); Aspartate Amino Transferase 11 U/L (0-40); Blood Urea Nitrogen 46 mg/dL (8-23); Calcium 10.7 mg/dL (8.5-10.5); Carbon Dioxide 29 mmol/L (22-29); Chloride 102 mmol/L (98-107); Globulin 2.7 g/dL (1.3-4.6); Glucose 93 mg/dL (65-115); NT Pro B Type Natriuretic Pept 199 pg/mL (0-125); Osmolality Calculated 300 mOsm/kg (285-295); Potassium 5.2 mmol/L (3.5-5.1); Sodium 139 mmol/L (136-145); Total Bilirubin 0.5 mg/dL (0.15-1.2); Total Protein 6.1 g/dL (6.6-8.7)
[2020-06-09] MEDS: sodium chloride 0.9% 1,000 ML 999 ML IV (17:27)
--- NOTE | 2020-06-09 17:31 | PC.NURSE ---
first liter given by ems
[2020-06-09 18:23] LABS: Troponin(5th) Baseline 42 ng/L (0-15)
[2020-06-09 18:37] VITALS: BP 99/63; PULSE 63; RESP 20; O2SAT 97
[2020-06-09 19:21] LABS: Troponin 5 2HR 22.13 ng/L (0-15)
[2020-06-09 19:30] VITALS: BP 112/61; PULSE 58; RESP 17; O2SAT 99
--- NOTE | 2020-06-09 19:34 | PC.NURSE ---
Pt agreeing to transfer to [facility]
[2020-06-09] MEDS: silver sulfadiazine cream 1% 50 gm 1 APPLIC TOPICAL (21:05)
--- NOTE | 2020-06-09 21:07 | PC.NURSE ---
Left arm dressing with silver ointment, 1 abd ontiveros and kerlix.
[2020-06-09 21:08] VITALS: BP 110/59; PULSE 63; RESP 21; TEMP 36.3; O2SAT 97
== END 2020-06-09 21:10 | disposition home or self-care (01) ==
PROVIDERS: Family Medicine; Emergency Provider Emergency Medicine; PCP Emergency Medicine Emergency Medical Services
DX: R06.00 Dyspnea, unspecified (principal); L03.114 Cellulitis of left upper limb; J44.9 Chronic obstructive pulmonary disease, unspecified; I10 Essential (primary) hypertension; E78.5 Hyperlipidemia, unspecified; E11.9 Type 2 diabetes mellitus without complications; F17.210 Nicotine dependence, cigarettes, uncomplicated
CPT/HCPCS: 36415; 36600; 71045; 80053; 81003; 82805; 83605; 83880; 84484; 85025; 87040; 87426; 93005; 96365; 96367; 99284; J2543; J3370; J7030; J7050

== ENCOUNTER 2020-06-22 08:27 | Outpatient (CLI) | payer OTHER, SELFPAY | END 2020-06-22 08:28 | disposition home or self-care (01) | LOC: WOUND 08:31 | PROVIDERS: PCP Emergency Medicine Emergency Medical Services; Visit Provider Thoracic Surgery (Cardiothoracic Vascular Surgery) | DX: E11.622 Type 2 diabetes mellitus with other skin ulcer (principal); L98.492 Non-pressure chronic ulcer of skin of other sites with fat layer exposed | CPT/HCPCS: 97597; 97598; G0463 ==

== ENCOUNTER 2020-07-07 09:49 | Outpatient (CLI) | payer OTHER, SELFPAY ==
--- NOTE | 2020-07-07 11:40 | N.ONRAD NP_ITS ---
Radiation Oncology Consultation Patient Name: Asif Sky Date of : 1945 Date of Service: 07/07/2020 Attending Physician: Dave Rico M.D. Asif Sky was seen in consultation this morning at the request of Wenceslao Ingram M.D. for evaluation regarding adjuvant head and neck radiotherapy for the management of a recently diagnosed oral cavity carcinoma. The patient was evaluated by his general practitioner regarding a lesion on his tongue. He was referred to Wenceslao Ingram M.D. in March 2020 who confirmed an ulcerated, exophytic lesion of the right lateral tongue. 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 A neck CT (independently visualized in synapse) ordered on April 06, 2020 did not identify a tongue lesion or significant cervical lymphadenopathy. PET/CT imaging completed on April 20, 2020 demonstrate FDG activity the right lateral portion of the tongue (SUV 9.1) without evidence of metastatic disease. A partial glossectomy with bilateral neck dissection with radial forearm free flap reconstruction, thigh split-thickness skin graft and temporary tracheostomy was performed on May 14, 2020 by Tatum Blankenship M.D. at [facility] in [place], [place]. The pathology report (requested from the outside hospital and personally reviewed) diagnosed a 5.7 cm moderately differentiated invasive squamous cell carcinoma with a tumor depth of invasion measuring 1.2 cm. Surgical margins were negative (deep and medial margins less than 1 mm). A total of 80 lymph nodes were harvested with zero lymph nodes harboring metastatic disease. The patient's postoperative course was complicated by a possible fistula and replacement of the Dobhoff tube. The tracheostomy was decannulated on postoperative day 6 and he was discharged on May 24, 2020. He presents for discussion regarding consideration of postoperative radiotherapy. I discussed with Mr. Sky the [place] [employer] on Cancer Staging, specifically the patient's pathological stage JORGE (T4aN0) of the oral cavity associated with his diagnosis and The National Comprehensive Cancer Network Guidelines for adjuvant radiotherapy in patients with newly resected tumors and adverse features (i.e. close margins, lymphovascular invasion/perineural, pN2/pN3, or advanced tumors; pT3-pT4). I also reviewed the classic studies, - the EORTC 89272 and RTOG 9501 trials that established the recommendation for chemoradiotherapy in patients with tumors demonstrating a positive margin or extranodal extension. The EORTC investigation demonstrated an overall survival advantage and improved locoregional control in the combined modality arm, while the RTOG study documented improved disease-free survival and locoregional control in a subgroup of patients with positive margins and extranodal extension. I would endorse a 6 1/2-week course of radiation therapy. Prior to beginning treatment, a radiotherapy planning CT scan with contrast will be acquired to delineate the clinical target volumes. I reviewed the potential toxicities of head and neck radiotherapy. The patient has verbalized understanding and would like to proceed as advocated. Signed by: Dr. Dave Rico 07/07/2020 12:03:41 PM
[2020-07-07 12:38] LABS: Basophils # 0.2 10^3/uL (0.0-0.1); Basophils % 1.4 %; Eosinophils # 0.8 10^3/uL (0.0-0.8); Hematocrit 36.8 % (42.0-52.0); Hemoglobin 11.8 g/dL (11.7-16.6); Lymphocytes # 2.5 10^3/uL (0.8-4.8); Lymphocytes % 18.3 %; Mean Corpuscular HGB Conc 32.1 g/dL (30.0-36.0); Mean Corpuscular Hemoglobin 28.9 pg (28.0-34.0); Mean Platelet Volume 10.2 fL (7.4-10.4); Monocytes # 1.2 10^3/uL (0.2-0.9); Monocytes % 8.7 %; Neutrophils # 8.84 10^3/uL (1.8-7.7); Neutrophils % 65.2 %; Nucleated Red Blood Cells % 0 %; Platelet Count 376 10^3/cmm (130-400); Red Blood Count 4.09 10^6/uL (4.1-5.3); Red Cell Distribution Width 13.3 % (12.1-15.1); White Blood Count 13.6 10^3/uL (4.0-10.0)
[2020-07-07 13:01] LABS: Albumin Level 4.1 g/dL (3.5-5.2); Alkaline Phosphatase 178 IU/L (40-130); Chloride 108 mmol/L (98-107); Sodium 138 mmol/L (136-145)
[2020-07-07 14:43] LABS: Alanine Aminotransferase 23 U/L (0-41); Anion Gap 16.9 (5-19); Aspartate Amino Transferase 13 U/L (0-40); Blood Urea Nitrogen 23 mg/dL (8-23); Calcium 10.4 mg/dL (8.5-10.5); Carbon Dioxide 18 mmol/L (22-29); Globulin 3.8 g/dL (1.3-4.6); Glucose 122 mg/dL (65-115); Osmolality Calculated 287 mOsm/kg (285-295); Total Bilirubin 0.5 mg/dL (0.15-1.2); Total Protein 7.8 g/dL (6.6-8.7)
== END 2020-07-07 09:50 | disposition home or self-care (01) ==
PROVIDERS: PCP Emergency Medicine Emergency Medical Services; Visit Provider Radiology Radiation Oncology
DX: C02.8 Malignant neoplasm of overlapping sites of tongue (principal)
CPT/HCPCS: 80053; 85025; 99205

== ENCOUNTER 2020-07-27 06:00 | Outpatient (RCR) | payer OTHER, MEDICARE, SELFPAY ==
--- NOTE | 2020-07-12 | CT_ITS ---
Radiation Therapy Planning CT images; total exam DLP: 508.51 mGy-cm MTDD
--- NOTE | 2020-07-19 08:55 | ONCRAD TMN_ITS ---
Radiation Oncology Treatment Management Note Patient Name: Asif Sky Date of : 1945 Date of Service: 07/19/2020 Attending Physician: Dave Rico M.D. Asif Sky is a 75 year old white male diagnosed with a pathological stage JORGE (T4aN0) moderately differentiated invasive squamous cell carcinoma (T4a is on account of the tumor measuring > 4 cm with a depth of invasion > 1 cm) of the oral tongue. A right partial glossectomy with bilateral neck dissection with a radial forearm free flap reconstruction and thigh split thickness skin graft including a temporary tracheostomy was performed on May 14, 2020. The patient has received 6 Gy of a prescribed 66 [place] with an intensity modulated radiotherapy plan utilizing a step and shoot treatment technique. Upon review of systems, he denied any complaints related to radiotherapy. On physical examination, the patient weighed 156 lbs. His temperature was 96.6 ???F with a blood pressure of 98/54 mmHg. His pulse was 62 bpm and the respiratory rate was 22. There was no erythema within the treatment stanton. Continue post-operative head and neck radiotherapy as prescribed. Signed by: Dr. Dave Rico 07/19/2020 8:54:47 AM
--- NOTE | 2020-07-26 09:05 | ONCRAD TMN_ITS ---
Radiation Oncology Treatment Management Note Patient Name: Asif Sky Date of : 1945 Date of Service: 07/26/2020 Attending Physician: Dave Rico M.D. Asif Sky is a 75 year old white male diagnosed with a pathological stage JORGE (T4aN0) moderately differentiated invasive squamous cell carcinoma (T4a is on account of the tumor measuring > 4 cm with a depth of invasion > 1 cm) of the oral tongue. A right partial glossectomy with bilateral neck dissection with a radial forearm free flap reconstruction and thigh split thickness skin graft including a temporary tracheostomy was performed on May 14, 2020. The patient has received 16 Gy of a prescribed 66 [place] with an intensity modulated radiotherapy plan utilizing a step and shoot treatment technique. Upon review of systems, he described odynophagia. On physical examination, the patient weighed 152 lbs. His temperature was 96.8 ???F with a blood pressure of 102/60 mmHg. His pulse was 65 bpm and the respiratory rate was 18. A mucositis was present within the right gingivobuccal sulcus. There was no erythema within the treatment stanton of the neck. Continue post-operative head and neck radiotherapy as planned. I will prescribe Oxycodone elixir for odynophagia. Signed by: Dr. Dave Rico 07/26/2020 9:03:14 AM
== END 2020-07-28 09:00 | disposition home or self-care (01) ==
LOC: ONCMED 06:00
PROVIDERS: PCP Emergency Medicine Emergency Medical Services; Visit Provider Radiology Radiation Oncology
DX: Z51.0 Encounter for antineoplastic radiation therapy (principal); C02.0 Malignant neoplasm of dorsal surface of tongue
CPT/HCPCS: 77300; 77301; 77334; 77336; 77338; 77386; Q9967

== ENCOUNTER 2020-07-28 09:40 | Inpatient (IN) | payer OTHER, MEDICARE, SELFPAY ==
[2020-07-28] VITALS (84 sets, daily range): BP systolic 67–139; BP diastolic 39–70; PULSE 45–87; RESP 14–26; TEMP 36.9–37.3; O2SAT 85–100; BMI 23.9
--- NOTE | 2020-07-28 09:42 | XR_ITS ---
WS: [id number] Portable AP upright chest, 07/28/2020 Clinical Data: overdose on opiates Comparison: Portable chest, 06/09/2020. Findings: No nodules, masses or effusions are seen. The heart is normal. The pulmonary vascularity is not increased. No pneumonia or pneumothorax is seen. There is a patchy opacity over the surface of t he left diaphragm which may represent atelectasis and/or pneumonia. Monitor leads are on the chest wa ll. The aortic arch and descending aorta show mild calcification and tortuosity. XR/XR chest 1V portable [id number] Impression: 1. Atherosclerosis. 2. Atelectasis and/or minimal pneumonia over surface of left diaphragm.
[2020-07-28] MEDS: sodium chloride 0.9% 1,000 ML 999 ML IV ×2 (10:03→11:55)
[2020-07-28 10:19] LABS: Basophils # 0.2 10^3/uL (0.0-0.1); Basophils % 1.1 %; Eosinophils # 0.1 10^3/uL (0.0-0.8); Eosinophils % 0.7 %; Hematocrit 33.4 % (42.0-52.0); Hemoglobin 10.5 g/dL (11.7-16.6); Lymphocytes # 1.6 10^3/uL (0.8-4.8); Lymphocytes % 10.9 %; Mean Corpuscular HGB Conc 31.4 g/dL (30.0-36.0); Mean Corpuscular Volume 92.3 fL (80-94); Mean Platelet Volume 10.5 fL (7.4-10.4); Monocytes # 1.4 10^3/uL (0.2-0.9); Monocytes % 9.3 %; Neutrophils # 11.48 10^3/uL (1.8-7.7); Neutrophils % 77.6 %; Nucleated Red Blood Cells % 0 %; Platelet Count 361 10^3/cmm (130-400); Red Blood Count 3.62 10^6/uL (4.1-5.3); Red Cell Distribution Width 13.2 % (12.1-15.1); White Blood Count 14.8 10^3/uL (4.0-10.0)
[2020-07-28 10:36] LABS: ABG PCO2 44.7 mmHg (35-45); Arterial Blood Gas Hematocrit 29.1 % (42-52); Base Excess ABG -4.2 mmol/L (-2.0-2.0); Blood Gas Sample Type Arterial; Carboxyhemoglobin 3.6 %THgb (0.4-20.1); HGB O2 Sat 89.2 % (95-100); Methemoglobin 0.8 % (0.4-1.5); PO2 ABG 69.3 mmHg (80.0-100.0); Total Hemoglobin 9.5 g/dL (14-18)
[2020-07-28 10:37] LABS: Blood Gas Operator Identificat ED; Blood Gas Sample Site Brachial, right; Oxygen Device NC
[2020-07-28 10:41] LABS: Alanine Aminotransferase 64 U/L (0-41); Albumin Level 3.7 g/dL (3.5-5.2); Alkaline Phosphatase 205 IU/L (40-130); Anion Gap 19.3 (5-19); Aspartate Amino Transferase 216 U/L (0-40); Blood Urea Nitrogen 23 mg/dL (8-23); Carbon Dioxide 25 mmol/L (22-29); Chloride 99 mmol/L (98-107); Globulin 3.3 g/dL (1.3-4.6); Glucose 77 mg/dL (65-115); NT Pro B Type Natriuretic Pept 1695 pg/mL (0-125); Osmolality Calculated 290 mOsm/kg (285-295); Potassium 4.3 mmol/L (3.5-5.1); Sodium 139 mmol/L (136-145); Total Bilirubin 0.6 mg/dL (0.15-1.2)
[2020-07-28 10:42] LABS: Alcohol Level < 10 mg/dL (0-10)
[2020-07-28] MEDS: naloxone 0.4 mg/ml SDV IVP (10:56)
--- NOTE | 2020-07-28 10:57 | ECG_ITS ---
[facility] Test Date: 2020-07-28 Pat Name: Asif Sky Department: Room: Gender: Male Adult Probation Officer: : 1945 Requested By: Ivan Lambert Order Number: [id number] Reading MD: CHAR DUARTE Measurements Intervals [place] Rate: 62 P: 89 NE: 237 QRS: 17 QRSD: 102 T: 85 QT: 414 QTc: 423 Interpretive Statements SINUS RHYTHM WITH FIRST DEGREE AV BLOCK NONSPECIFIC T-WAVE ABNORMALITY Compared to ECG 06/09/2020 16:29:10 T-wave abnormality now present Electronically Signed On 07-28-2020 19:22:40 CDT by CHAR DUARTE [email or web address] Crowdkaiser foundation hospitalB-Obvious/store/OM/[id number]
[2020-07-28 11:24] LABS: Lactate (Lactic Acid level) 1.6 mmol/L (0.5-2.2)
[2020-07-28 11:33] LABS: Troponin(5th) Baseline 76 ng/L (0-15)
--- NOTE | 2020-07-28 11:42 | PC.PHAR ---
PT UNABLE TO VERIFY MEDICATIONS-PTS DAUGHTER VERIFIED MEDS-ALSO HAD [facility] SEND MED LIST-PTS DAUGHTER JUWAN STATES SHE DECREASED THE PTS AMLODIPINE TO 5MG DAILY (VA LIST 10MG QD)-ATENOLOL 50MG HS (VA MED LIST 100MG HS)-LISINOPRIL 20MG QAM ([facility] MED LIST 40MG DAILY)-PTS DAUGHTER STATES THE PT GOT POISONING FROM [place] AND HAD TO STOP USING-STATES THE PT IS USING SOME KIND OF GAUZE-
[2020-07-28 11:59] LABS: Troponin 5 2HR 77.24 ng/L (0-15); Troponin 5 2HR Delta 1.24 ABS# (0-10)
--- NOTE | 2020-07-28 12:13 | CT_ITS ---
WS: [id number] CT ABDOMEN PELVIS TECHNIQUE: Noncontrast CT of the abdomen and pelvis with coronal and sagittal reformatted images. CLINICAL INFORMATION: creat 4.8. h/o cancer. COMPARISON: PET CT April 20, 2020 DLP: 1424.[address] scans at [facility] use at least one of these dose optimization techniques: automat ed exposure control; mA and/or kV adjustment per patient size (includes targeted exams where dose is matched to clinical indication); or iterative reconstruction. FINDINGS: Tiny bilateral pleural effusions. Segmental atelectasis in the lung bases worse in the left. Patchy a telectasis in the lingula. Noncontrast liver is normal. Normal gallbladder. Adrenal glands are normal . No hydronephrosis in either kidney. Noncontrast spleen is normal. Small splenule. Normal GE junctio n. Fatty atrophy of the pancreas. No evidence of small or large bowel obstruction. Normal sigmoid col on. Slightly aneurysmal infrarenal abdominal aorta measuring 2.7 x 2.9 cm AP X transverse. Densely calcif ied iliac arteries. Right External iliac artery stent. No abdominal lymphadenopathy. No pelvic lympha denopathy. No inguinal lymphadenopathy. Moderate spondylitic changes lumbar spine. Grade 1 anterolist hesis L4 on L5. Slight retrolisthesis L5 on S1. Prior laminectomy defects L4-5. Incidental fat-contai adonis umbilical hernia. CT/CT abdomen pelvis wo con [id number] IMPRESSION: 1. Tiny bilateral pleural effusions with compressive and subsegmental atelecta sis in the lung bases left greater than right. 2. Slightly aneurysmal infrarenal abdominal aorta measuring 2.7 x 2.9 CM. 3. No evidence of small or large bowel obstruction. 4. No free fluid in the abdomen or pelvis. 5. No hydronephrosis in either kidney. 6. No other significant findings.
--- NOTE | 2020-07-28 12:38 | ED_ITS ---
HPI - Overdose General: Chief Complaint: Overdose Stated Complaint: POSSIBLE INTENTIONAL OVERDOSE Time Seen by Provider: 07/28/20 09:42 History of Present Illness: HPI Narrative: The patient is a 75-year-old male with past medical history alcoholism and tongue cancer status post surgery and bilateral neck dissection in May on 5 L oxygen chronically. He comes to the ER today after 3 days ago he received a liquid oxycodone bottle for pain control. His family member came to check on him today and noted that half the bottle is gone which is significantly more than he is supposed to be taking. He says he was just trying to get relief from his pain and swigs it. He denies suicide attempt and no one saw him chugging with the bottle. He came in hypotensive with constricted pupils. complaint: accidental overdose Review of Systems General: Reports: 10 or more systems reviewed and unremarkable except in HPI and below Const: Denies: fatigue Eyes: Denies: change in vision, blurry vision or eye redness ENMT: Denies: throat pain, swelling of lips/tongue, ear or mastoid pain or nasal congestion Card: Denies: chest pain, palpitations, irregular heart rhythm, edema, dyspnea on exertion or orthopnea Resp: Denies: dyspnea, productive cough or non-productive cough GI: Denies: abdominal pain, diarrhea or GI cramping : Denies: flank pain, urinary frequency or urinary urgency Musc: Denies: neck pain, back pain, extremity pain, joint pain, joint redness, limited range of motion or muscle weakness Skin/Breast: Denies: rash, pruritus, erythema, skin pain or skin tenderness Neuro: Denies: headache(s), numbness in extremities, weakness in extremities, sensory changes, difficulty walking, dizziness, confusion or Slurred speech present Psych: Denies: anxiety or depression Endo: Denies: polyuria All/Imm: Denies: urticaria, throat swelling or tongue swelling PFSH ED PFSH: Medical History (Updated 07/28/20 @ 14:40 by Ivan Lambert MD) BPH (benign prostatic hyperplasia) Chronic ischemic heart disease COPD (chronic obstructive pulmonary disease) Depression with anxiety HTN (hypertension) Hypercalcemia Hyperlipidemia Impotence Lumbago MIKE (obstructive sleep apnea) PVD (peripheral vascular disease) Type 2 diabetes mellitus Social History Smoking and tobacco status: current every day smoker cigarettes Packs smoked per day: 1 Years cigarettes smoked: 55 Quit status (tobacco): not considering quitting Alcohol intake: current Alcohol intake frequency: 0-2 Drinks per Day Alcohol type: beer Caregiver/support person: Yes Lives independently: Yes Household members: family service: Yes Current occupational status: retired and disabled History of recent travel: No Current gender identity: Male Physical Exam Const: COMMON NORMALS: no acute distress, average body habitus, patient oriented x3, no limitations, healthy appearing, alert and well nourished GENERAL APPEARANCE: cooperative, comfortable, well kempt and well developed ORIENTATION/CONSCIOUSNESS: Yes awake, Yes oriented to person, Yes oriented to place and Yes oriented to time HENMT: COMMON NORMALS: normocephalic, external ears normal and Normal external nose present HEAD & SCALP: normal to inspection and normocephalic NOSE: Normal external nose present EXTERNAL EAR: Yes external ears normal MOUTH: Normal oral and palatal mucosa present THROAT: posterior oropharynx normal Eye: COMMON NORMALS: Equal, round and reactive pupils present and EOMs intact bilaterally GENERAL EYE: appearance normal, both eyes and all related structures PUPIL: Yes Equal, round and reactive pupils present Neck/C-Spine: COMMON NORMALS: full ROM, no lymphadenopathy, no meningeal signs and no JVD GENERAL: Yes normal visual inspection Lymph: LYMPHATIC: no lymphadenopathy noted Chest: COMMONS NORMALS: normal inspection of the chest and normal palpation of entire chest wall Resp: COMMON NORMALS: normal respiratory effort, No retractions, No use of accessory muscles, clear to auscultation bilaterally and percussion normal EFFORT & INSPECTION: Yes able to speak in complete sentences AUSCULTATION: clear to auscultation bilaterally PERCUSSION: percussion normal Cardio: COMMON NORMALS: no JVD, regular rate, regular rhythm, S1 normal heart sound present, S2 normal heart sound present and Peripheral pulses 2+ throughout RATE: regular rate RHYTHM: regular rhythm HEART SOUNDS: S1 normal heart sound present and S2 normal heart sound present PERIPHERAL PULSES: Peripheral pulses 2+ throughout GI: COMMON NORMALS: Normal to inspection, nondistended, normoactive bowel sounds present, Soft to palpation, non-tender and no masses INSPECTION: Yes normal to inspection PALPATION: Yes Soft to palpation : COMMON NORMALS: Yes no CVA tenderness BLADDER/KIDNEY EXAM: Yes no CVA tenderness Back/Pelvis: COMMON NORMALS: no CVA tenderness, thoracic and lumbar spine normal to inspection, no thoracic nor lumbar tenderness and thoraco-lumbar ROM normal Extremity: COMMON NORMALS: normal to inspection, full ROM, capillary refill normal, no joint enlargement and no pedal edema GENERAL: Yes normal exam except as noted Neuro: COMMON NORMALS: patient oriented x3, CN's II-XII intact bilaterally, moves all extremities, no focal motor deficits, no sensory deficits noted and gait normal SENSORIUM/ORIENTATION: Yes alert, Yes oriented to person, Yes oriented to place and Yes oriented to time MENINGEAL SIGNS: Yes no meningeal signs Psych: COMMON NORMALS: mental status grossly normal, Normal thought process present, cooperative, normal affect and speech normal APPEARANCE: Yes well kempt ATTITUDE: Yes calm SPEECH: Yes normal speech THOUGHT PROCESS: Normal thought process present Skin: COMMON NORMALS: no rashes or lesions noted GENERAL SKIN EXAM: no rashes or lesions noted Course Vital Signs: Vital signs: Vital Signs Temperature 99.1 F 07/28/20 09:48 Pulse Rate 67 07/28/20 14:17 Respiratory Rate 15 07/28/20 14:17 Blood Pressure 80/45 07/28/20 14:17 Pulse Oximetry 91 07/28/20 14:17 MDM - Overdose MDM Narrative: Medical decision making narrative: The patient came to the ER after using too much oxycodone liquid for his pain. He remained hypotensive despite over a liter of fluid hydration and Narcan 0.4 IV. Also his creatinine is 4.8 which is an acute increase even from 3 weeks ago[address] Discuss[address] with Dr. Pickens who accepts for observation. Interestingly his drug screen is negative for opiates. He has continued to be hypotensive even after 2 L of fluid so I added Levophed. Dr. Pickens will monitor in the ICU. Lab Data: Labs: Lab Results 07/28/20 07/28/20 07/28/20 Range/Units 09:25 09:25 09:25 WBC 14.8 H (4.0-10.0) 10^3/ uL RBC 3.62 L (4.1-5.3) 10^6/u L Hgb 10.5 L (11.7-16.6) g/dL Hct 33.4 L (42.0-52.0) % MCV 92.3 (80-94) fL MCH 29.0 (28.0-34.0) pg MCHC 31.4 (30.0-36.0) g/dL RDW 13.2 (12.1-15.1) % Plt Count 361 (130-400) 10^3/c mm MPV 10.5 H (7.4-10.4) fL Neut % (Auto) 77.6 % Lymph % (Auto) 10.9 % [place] % (Auto) 9.3 % Eos % (Auto) 0.7 % Baso % (Auto) 1.1 % Neut # (Auto) 11.48 H (1.8-7.7) 10^3/u L Lymph # (Auto) 1.6 (0.8-4.8) 10^3/u L [place] # (Auto) 1.4 H (0.2-0.9) 10^3/u L Eos # (Auto) 0.1 (0.0-0.8) 10^3/u L Baso # (Auto) 0.2 H (0.0-0.1) 10^3/u L Nucleated RBC % (a uto) 0 % Nucleated RBCs # 0.0 /100WBC Specimen Type Sample Site ABG pH (7.35-7.45) ABG pCO2 (35-45) mmHg ABG pO2 (80.0-100.0) mmH g ABG HCO3 (22-26) mmol/L ABG Base Excess (-2.0-2.0) mmol/ L Ammon Test Hematocrit (42-52) % Hgb O2 Saturation (95-100) % Carboxyhemoglobin (0.4-20.1) %THgb Methemoglobin (0.4-1.5) % Total Hemoglobin (14-18) g/dL O2 Delivery Device O2 Liters/Min % FiO2 % Dairy Management Specialist ID Sodium 139 (136-145) mmol/L Potassium 4.3 (3.5-5.1) mmol/L Chloride 99 (98-107) mmol/L Carbon Dioxide 25 (22-29) mmol/L Anion Gap 19.3 H (5-19) BUN 23 (8-23) mg/dL Creatinine 4.8 H (0.7-1.2) mg/dL GFR Calculation Not Reportable Glucose 77 (65-115) mg/dL Calculated Osmolal ity 290 (285-295) mOsm/k g Lactate (0.5-2.2) mmol/L Calcium 9.0 (8.5-10.5) mg/dL Total Bilirubin 0.6 (0.15-1.2) mg/dL AST 216 H (0-40) U/L ALT 64 H (0-41) U/L Alkaline Phosphata se 205 H (40-130) IU/L Troponin T Baselin e 76 H (0-15) ng/L Troponin T 120 Min flor (0-15) ng/L Delta Troponin T (0-10) ABS# NT-Pro-B Natriuret Pep 1695 H (0-125) pg/mL Total Protein 7.0 (6.6-8.7) g/dL Albumin 3.7 (3.5-5.2) g/dL Globulin 3.3 (1.3-4.6) g/dL Ethyl Alcohol < 10 (0-10) mg/dL 07/28/20 07/28/20 07/28/20 Range/Units 10:26 10:30 11:32 WBC (4.0-10.0) 10^3/ uL RBC (4.1-5.3) 10^6/u L Hgb (11.7-16.6) g/dL Hct (42.0-52.0) % MCV (80-94) fL MCH (28.0-34.0) pg MCHC (30.0-36.0) g/dL RDW (12.1-15.1) % Plt Count (130-400) 10^3/c mm MPV (7.4-10.4) fL Neut % (Auto) % Lymph % (Auto) % [place] % (Auto) % Eos % (Auto) % Baso % (Auto) % Neut # (Auto) (1.8-7.7) 10^3/u L Lymph # (Auto) (0.8-4.8) 10^3/u L [place] # (Auto) (0.2-0.9) 10^3/u L Eos # (Auto) (0.0-0.8) 10^3/u L Baso # (Auto) (0.0-0.1) 10^3/u L Nucleated RBC % (a uto) % Nucleated RBCs # /100WBC Specimen Type Arterial Sample Site Brachial, right ABG pH 7.30 L (7.35-7.45) ABG pCO2 44.7 (35-45) mmHg ABG pO2 69.3 L (80.0-100.0) mmH g ABG HCO3 22.0 (22-26) mmol/L ABG Base Excess -4.2 L (-2.0-2.0) mmol/ L Ammon Test N/a Hematocrit 29.1 L (42-52) % Hgb O2 Saturation 89.2 L (95-100) % Carboxyhemoglobin 3.6 (0.4-20.1) %THgb Methemoglobin 0.8 (0.4-1.5) % Total Hemoglobin 9.5 L (14-18) g/dL O2 Delivery Device Nc O2 Liters/Min 5.0 % FiO2 40.0 % Dairy Management Specialist ID Ed Sodium (136-145) mmol/L Potassium (3.5-5.1) mmol/L Chloride (98-107) mmol/L Carbon Dioxide (22-29) mmol/L Anion Gap (5-19) BUN (8-23) mg/dL Creatinine (0.7-1.2) mg/dL GFR Calculation Glucose (65-115) mg/dL Calculated Osmolal ity (285-295) mOsm/k g Lactate 1.6 (0.5-2.2) mmol/L Calcium (8.5-10.5) mg/dL Total Bilirubin (0.15-1.2) mg/dL AST (0-40) U/L ALT (0-41) U/L Alkaline Phosphata se (40-130) IU/L Troponin T Baselin e (0-15) ng/L Troponin T 120 Min flor 77.24 H (0-15) ng/L Delta Troponin T 1.24 (0-10) ABS# NT-Pro-B Natriuret Pep (0-125) pg/mL Total Protein (6.6-8.7) g/dL Albumin (3.5-5.2) g/dL Globulin (1.3-4.6) g/dL Ethyl Alcohol (0-10) mg/dL Discharge Plan Discharge Patient Disposition: Placed in Observation Admit Provider: Tatiana Pickens Clinical Impression: Drug overdose, Acute renal failure, Acute hypotension Coding Level of Care Code ED Digital Marketer for Chg Fwd Exam Comprehensive
--- NOTE | 2020-07-28 12:57 | ECG_ITS ---
[facility] Test Date: 2020-07-28 Pat Name: Asif Sky Department: Room: 112 Gender: Male Private Branch Exchange Repairer: : 1945 Requested By: Ivan Lambert Order Number: [id number] Reading MD: CHAR DUARTE Measurements Intervals [place] Rate: 56 P: 64 CT: 230 QRS: 12 QRSD: 103 T: 75 QT: 443 QTc: 429 Interpretive Statements SINUS BRADYCARDIA WITH FIRST DEGREE AV BLOCK WITH OCCASIONAL VENTRICULAR PREMATURE COMPLEXES NONSPECIFIC T-WAVE ABNORMALITY Compared to ECG 07/28/2020 11:26:20 Ventricular premature complex(es) now present Sinus rhythm no longer present T-wave abnormality still present Electronically Signed On 07-28-2020 19:24:07 CDT by CHAR DUARTE [id number]
[2020-07-28 13:07] LABS: Amphetamines Screen Urine Negative (Negative); Barbiturates Screen Urine Negative (Negative); Benzodiazepines Screen Urine Negative (Negative); Cocaine Screen Urine Negative (Negative); Opiate Screen Urine Negative (Negative); PCP Screen Urine Negative (Negative); THC Screen Urine Negative (Negative)
[2020-07-28 13:13] LABS: Protein Urine Neg (Negative); Specific Gravity, Urine 1.025 (1.005-1.030); Urine Appearance Cloudy (CLEAR); Urine Color Brown (Yellow); pH Urine 5 (5-7)
[2020-07-28 13:14] LABS: Add Urine Microscopic? YES; Bilirubin Urine 1+ (Negative); Blood Urine 3+ (Negative); Glucose Urine UA Norm (Normal); Ketones Urine 1+ (Negative); Leukocyte Esterase Urine Negative (Negative); Nitrate Urine Negative (Negative); Urobilinogen Urine 1 mg/dL (Negative)
[2020-07-28 13:29] LABS: Hyaline Casts Urine 55-80 /lpf
[2020-07-28 13:31] LABS: Add Urine Culture? No; Amorphous Sediment Urine 1+ /hpf; Bacteria Urine 1+ /hpf; Mucus Urine 1+ /hpf; Squamous Epithelial Cell Urine 0-4 /hpf (0-5)
[2020-07-28] MEDS: sodium chloride 0.9% 1,000 ML 125 ML IV ×2 (14:43→22:50)
--- NOTE | 2020-07-28 15:31 | P.HP_ITS ---
Providers/Chief Complaint Admitting Physician: Tatiana Pickens MD Primary Care Provider: Miguelito Benson DO Chief Complaint: POSSIBLE INTENTIONAL OVERDOSE History of Present Illness Asif Sky is a 75 year old male diagnosed with moderately differentiated invasive squamous cell carcinoma in Mar 2020 s/p partial glossectomy with bilateral neck dissection with radial forearm free flap reconstruction at [facility] in may 2020. No regional metastatic disease idenitfied. The patient's postoperative course was complicated by a possible fistula and replacement of the Dobhoff tube. The tracheostomy was decannulated on postoperative day 6 and he was discharged on May 24, 2020. He is currently undergoing chemotherapy for the last 2 weeks. He presented to the ER today brought by the family because of being extremely lethargic and weak. Generalized failure to thrive over the last several weeks. Her son-in-law who is currently at bedside, family suspected he had taken an excess dose of his oxycodone at home, however patient's drug screen is currently negative for any opiates. Patient has had poor p.o. intake over the last 2 to 3 weeks, his blood pressure he has been ranging around 100 systolic. Yesterday when he went for radiation he was noted to be dehydrated and recommended to get some IV fluids, however patient refused and elected to go home. Per son-in-law, patient has only been drinking sodas over the last few weeks. He is inconsistent with his meals. Lives by himself. Patient reports a poor appetite. Denies any complaints of fever, chest pain, dyspnea, cough, hemoptysis, abdominal pain, nausea vomiting or diarrhea. Urine is noted to be high colored, urine output has been poor over the last 4 to 5 days. Patient appears dehydrated upon examination. In the ER he was noted to be hypotensive, blood pressure initially 60-70 systolic, received 2 L of IV fluid resuscitation, map continues to be between 55-60, has been initiated on Levophed infusion. He is also currently on 5 L/min nasal cannula, not normally on home oxygen. Review of Systems General: Reports: 10 or more systems reviewed and unremarkable except in HPI and below Const: Denies: fever(s), chills or body aches Eyes: Denies: change in vision, blurry vision or photophobia ENMT: Reports: hoarseness; Denies: throat pain, enlarged tonsils, odynophagia or nasal congestion Card: Denies: chest pain, palpitations, irregular heart rhythm, edema, swelling of feet/ankles, lightheadedness, pre-syncope, dyspnea on exertion or orthopnea Resp: Denies: dyspnea, productive cough, non-productive cough, wheezing, stridor, pain on inspiration, change in phlegm color, hemoptysis or chest congestion GI: Denies: abdominal pain, nausea, vomiting, hematemesis, coffee ground emesis, dysphagia, heartburn, diarrhea, constipation, GI cramping, change in stool character, hematochezia or melena : Denies: flank pain, dysuria, urinary frequency, urinary urgency, urinary hesitancy or hematuria Musc: Denies: neck pain, back pain, extremity pain, joint swelling, joint warmth or deformity Neuro: Denies: headache(s), numbness in extremities, weakness in extremities, sensory changes, difficulty walking, frequent falls, dizziness, vertigo, behavioral changes, Slurred speech present or seizure-like activity Psych: Denies: anxiety, depression, suicidal ideation or homicidal ideation Endo: Denies: polyuria, polydipsia, tired all the time, cold intolerance or ho t flashes Cody/Lymph: Denies: easy bruising or easy bleeding Medications/Allergies Home Medications Medication Instructions Recorded Confirmed Last Taken Type amlodipine 10 mg tablet 5 mg PO DAILY 07/30/19 07/28/20 06/08/20 History atenolol 100 mg tablet 50 mg PO BEDTIME 07/30/19 07/28/20 06/08/20 History atorvastatin 80 mg tablet 40 mg PO BEDTIME tab 07/30/19 07/28/20 07/27/20 History buspirone 15 mg tablet 15 mg PO BID tab 07/30/19 07/28/20 07/27/20 History cetirizine 10 mg tablet 10 mg PO DAILY PRN tab 07/30/19 07/28/20 06/08/20 History cholecalciferol (vitamin D3) 25 25 mcg PO DAILY 07/30/19 07/28/20 07/27/20 History mcg (1,000 unit) capsule cyclobenzaprine 10 mg tablet 10 mg PO BID PRN tab 07/30/19 07/28/20 06/08/20 History folic acid 1 mg tablet 1 mg PO DAILY 07/30/19 07/28/20 06/08/20 History gabapentin 300 mg capsule 300 mg PO TID 07/30/19 07/28/20 06/08/20 History hydroxyzine HCl 25 mg tablet 25 mg PO BEDTIME PRN tab 07/30/19 07/28/20 06/08/20 History lisinopril 40 mg tablet 20 mg PO QAM 07/30/19 07/28/20 07/27/20 History tamsulosin 0.4 mg capsule 0.4 mg PO BID cap 07/30/19 07/28/20 07/27/20 History thiamine HCl (vitamin B1) 100 mg 100 mg PO DAILY 07/30/19 07/28/20 06/08/20 History tablet trazodone 100 mg tablet 50 mg PO BEDTIME tab 07/30/19 07/28/20 07/27/20 History budesonide-formoterol HFA 160 2 puff INHALATION BID 30 Days 02/02/20 07/28/20 06/08/20 Rx mcg-4.5 mcg/actuation aerosol #10.2 gm inhaler albuterol sulfate [ProAir HFA] 2 puff INHALATION QID PRN 07/28/20 07/28/20 Unknown History aspirin [Aspir-81] 81 mg PO QAM 07/28/20 07/28/20 07/27/20 History fluticasone propionate [Flonase] 2 spray INTRANASAL DAILY PRN 07/28/20 07/28/20 Unknown History ipratropium-albuterol [Combivent 1 puff INHALATION QID PRN 07/28/20 07/28/20 Unknown History Respimat] oxycodone 5 mg PO .EVERY 4-6 HOURS PRN 07/28/20 07/28/20 Unknown History tiotropium bromide [Spiriva 2 puff INHALATION DAILY 07/28/20 07/28/20 Unknown History Respimat] venlafaxine [Effexor XR] 225 mg PO QAM 07/28/20 07/28/20 07/27/20 History Allergies Allergy/AdvReac Type Severity Reaction Status Date / Time No Known Allergies Allergy Verified 07/28/20 11:42 PFSH Acute PFSH: Medical History (Updated 07/28/20 @ 15:59 by Tatiana Pickens MD) BPH (benign prostatic hyperplasia) Chronic ischemic heart disease COPD (chronic obstructive pulmonary disease) Depression with anxiety HTN (hypertension) Hypercalcemia Hyperlipidemia Impotence Lumbago MIKE (obstructive sleep apnea) PVD (peripheral vascular disease) Type 2 diabetes mellitus Social History Smoking and tobacco status: current every day smoker cigarettes Packs smoked per day: 1 Years cigarettes smoked: 55 Quit status (tobacco): not considering quitting Alcohol intake: current Alcohol intake frequency: 0-2 Drinks per Day Alcohol type: beer Caregiver/support person: Yes Lives independently: Yes Household members: family service: Yes Current occupational status: retired and disabled History of recent travel: No Current gender identity: Male Vitals/I&O/Wt Last Vital Signs Temp 99.1 F 07/28/20 09:48 Pulse 67 07/28/20 14:17 Resp 15 07/28/20 14:17 BP 80/45 07/28/20 14:17 Pulse Ox 91 07/28/20 14:17 07/28/20 07/28/20 07/28/20 06:59 14:59 22:59 Intake Total 1999 2.2001. Balance 06.06 Weight last 48 hrs Weight 69.4 kg Physical Exam Narrative: EXAM NARRATIVE: GENERAL: Awake, alert, oriented, in no acute distress. Grossly dehydrated [] HEENT: Normocephalic, atraumatic, PERRLA. Right-sided hemiglossectomy [] CHEST: Clear to auscultation bilaterally. [] CVS: S1, S2 normal. No murmur, rubs, gallops. Peripheral pulses palpable. [] ABDOMEN: Soft, nontender. Nondistended. Bowel sounds heard. [] NEUROVASCULAR: Awake, alert. Power 5/5 all extremities. DTR+ [] EXTREMITIES: No edema. [] Data : 07/28/20 09:25 07/28/20 09:25 A&P Assessment and plan (1) Acute renal failure: Last known creatinine at 1.3. Today creatinine is at 4.8 Patient overall appears to be grossly dehydrated, suspect that NALDO may be related to poor p.o. intake over the last 2 to 3 weeks as reported by family members. Start normal saline at 125 cc/h, patient additionally hypotensive, has received 2 L of IV fluid resuscitation in the ER. Check CPK to evaluate for rhabdomyolysis, UA with 1+ bacteria, 55-80 hyaline casts, negative leuk esterase and negative nitrite Check urine lites and urine creatinine Hold lisinopril Continue Flomax Abdominal ultrasound without any gross hydronephrosis Status: Acute Qualifiers: Acute renal failure type: unspecified Qualified Code(s): N17.9 - Acute kidney failure, unspecified (2) Acute hypotension: appears to be related to hypovolemia from dehydration. IVF as above no current signs or symptoms of infection check procal if develops fever, to start emepiric abx UA not c/w UTI, atelactsis in left lung base , CT abdomen without gross signs of infection Status: Acute (3) Hypoxia: New per history, has a h/o COPD, duonebs q4h + budesonide supplemental 02 to keep saturation >90% No acute exacerbation of COPD at this time, hold off on steroids Status: Acute Additional A&P Information DVT ppx: lovenox Limited resuscitation: Okay for intubation and mechanical ventilation if reversible respiratory cause, no chest compressions Attestations Medical Necessity Statement*: >2midnight admission for management of hypotension, acute renal failure Coding Level of Care Code Acute Line Technician for [facility] Diagnoses Acute renal failure N17.9 Acute renal failure type: unspecified Acute hypotension I95.9 Hypoxia R09.02
[2020-07-28 16:10] LABS: Procalcitonin 0.46 ng/mL (0-0.5)
[2020-07-28 16:20] LABS: D Dimer 2.95 ug/mIFEU (0-0.59)
[2020-07-28] MEDS: enoxaparin 40 mg/0.4 mL Syringe SUBCUT (16:53)
[2020-07-28 17:15] LABS: SARS Covid-2 Antigen Negative (Negative)
[2020-07-28 17:21] LABS: Creatine Phosphokinase 9994 U/L (39-308)
[2020-07-28] MEDS: famotidine 20 mg Tablet PO (17:25)
[2020-07-28 17:49] LABS: Potassium, Radom Urine 36 mmol/L; Urine Random Sodium 36 mmol/L
[2020-07-28 17:56] LABS: Urine Random Chloride 14 mmol/L
--- NOTE | 2020-07-28 17:57 | ECG_ITS ---
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1945 Requested By: Ivan Lambert Order Number: [id number] Reading MD: CHAR DUARTE Measurements Intervals [place] Rate: 60 P: 54 PA: 234 QRS: -11 QRSD: 103 T: 79 QT: 420 QTc: 422 Interpretive Statements SINUS RHYTHM WITH FIRST DEGREE AV BLOCK INFERIOR MYOCARDIAL INFARCTION [40+ ms Q WAVE AND/OR ST/T ABNORMALITY IN II/aVF], PROBABLY OLD Compared to ECG 07/28/2020 13:07:07 Myocardial infarct finding now present Sinus bradycardia no longer present Ventricular premature complex(es) no longer present T-wave abnormality no longer present Electronically Signed On 07-28-2020 19:23:40 CDT by CHAR DUARTE [email or web address] your brandslouis [id number]
[2020-07-28 19:29] LABS: Troponin 5 6HR 61.52 ng/L (0-15)
[2020-07-28] MEDS: ipratropium-albuterol 3 mL Neb INHALATION (20:15)
[2020-07-28] MEDS: budesonide 0.5 mg/2 mL Neb INHALATION (20:15)
[2020-07-28] MEDS: trazodone 100 mg Tablet 50 MG PO (20:34)
[2020-07-28] MEDS: BuSPIRONE 10 mg Tablet 15 MG PO (20:36)
[2020-07-28] MEDS: atorvastatin 40 mg Tablet PO (20:36)
[2020-07-28] MEDS: gabapentin 300 mg Capsule PO (20:36)
[2020-07-29] VITALS (78 sets, daily range): BP systolic 84–139; BP diastolic 43–98; PULSE 45–135; RESP 14–31; TEMP 36.5–37.2; O2SAT 81–99
[2020-07-29 03:36] LABS: Basophils # 0.1 10^3/uL (0.0-0.1); Basophils % 1.2 %; Eosinophils # 0.3 10^3/uL (0.0-0.8); Eosinophils % 2.9 %; Hematocrit 32.6 % (42.0-52.0); Hemoglobin 9.9 g/dL (11.7-16.6); Lymphocytes # 1.8 10^3/uL (0.8-4.8); Lymphocytes % 16.5 %; Mean Corpuscular HGB Conc 30.4 g/dL (30.0-36.0); Mean Corpuscular Hemoglobin 28.6 pg (28.0-34.0); Mean Corpuscular Volume 94.2 fL (80-94); Monocytes # 1.4 10^3/uL (0.2-0.9); Monocytes % 12.7 %; Neutrophils # 7.13 10^3/uL (1.8-7.7); Neutrophils % 66.2 %; Nucleated Red Blood Cells % 0 %; Platelet Count 334 10^3/cmm (130-400); Red Blood Count 3.46 10^6/uL (4.1-5.3); White Blood Count 10.8 10^3/uL (4.0-10.0)
[2020-07-29 04:02] LABS: Alanine Aminotransferase 68 U/L (0-41); Albumin Level 2.8 g/dL (3.5-5.2); Alkaline Phosphatase 180 IU/L (40-130); Aspartate Amino Transferase 234 U/L (0-40); Blood Urea Nitrogen 19 mg/dL (8-23); Calcium 8.1 mg/dL (8.5-10.5); Carbon Dioxide 24 mmol/L (22-29); Chloride 104 mmol/L (98-107); Globulin 3.1 g/dL (1.3-4.6); Glucose 136 mg/dL (65-115); Osmolality Calculated 288 mOsm/kg (285-295); Sodium 137 mmol/L (136-145); Thyroid Stimulating Hormone 2.05 uIU/mL (0.27-4.20); Total Bilirubin 0.3 mg/dL (0.15-1.2); Total Protein 5.9 g/dL (6.6-8.7)
[2020-07-29 04:04] LABS: Anion Gap 12.9 (5-19); Potassium 3.9 mmol/L (3.5-5.1)
[2020-07-29] MEDS: aspirin 81 mg EC Tablet PO (05:43)
[2020-07-29] MEDS: venlafaxine ER (24HR) 75 mg Capsule 225 MG PO (05:43)
[2020-07-29] MEDS: sodium chloride 0.9% 1,000 ML 125 ML IV ×2 (05:44→14:25)
[2020-07-29 07:30] LABS: Glucose Point of Care 138 mg/dL (70-110)
[2020-07-29 07:36] LABS: Glucose Point of Care 149 mg/dL (70-110)
[2020-07-29] MEDS: ipratropium-albuterol 3 mL Neb INHALATION ×2 (08:02→20:24)
[2020-07-29] MEDS: budesonide 0.5 mg/2 mL Neb INHALATION ×2 (08:02→20:24)
[2020-07-29] MEDS: gabapentin 300 mg Capsule PO ×3 (08:18→21:32)
[2020-07-29] MEDS: famotidine 20 mg Tablet PO ×2 (08:18→17:48)
[2020-07-29] MEDS: tamsulosin 0.4 mg Capsule PO ×2 (08:18→17:48)
--- NOTE | 2020-07-29 09:06 | PC.CHAP ---
Pastoral Care Encounter/Spiritual Assessment Type of Contact [] Declined educational programming director visit [] Patient/Family/Request visit [] Outpatient visit [] Follow-up visit [] Physician referral [] Code/Alert [x] Routine visit [] Staff referral [] Actively dying [] Patient sleeping [] Family support [] [] Out of room [] Palliative care [] [] Receiving care in room [] Pre-surgical visit [] Trauma [] Long length of stay [x] ICU visit [] Other: Relational/Emotional Strength [] Patient feels connected with others/family/visitors/staff [] Distress [] Loneliness/isolation [] Abandonment Spirituality of Patient [] Person of Reina [] Attends Anglican of their Reina [] Believes in Prayer [] Reads Bible or Orthodox materials [] There are Spiritual issues to be addressed Boat Motor Mechanic Interventions [x] Prayer [x] Active listening [x] Non-anxious presence [x] Spiritual/emotional support [] Crisis/trauma care [] Spiritual counseling [] Bereavement support [] Provided bereavement packet [] Provided Bible/devotional materials [] Provided toy/stuffed animal, coloring book to patient or family member [] Provided Communion [] Anointing/[place] [] Salvation [x] Completed spiritual assessment [] Other: Impact on Illness or Injury [] Angry [] Fearful [] Anxious [] Often cries [] Exhaustion [] Unable to work [] Unable to attend buddhist [] Unable to walk/stand [] Unable to read [] Unable to drive [] Unable to eat/drink [] Unable to sleep [] Unable to be with family [] Patient intubated [] Other: Summary patient setting up- wanting prayer for healing.. positive attitude Time spent with patient 10 min
[2020-07-29] MEDS: enoxaparin 40 mg/0.4 mL Syringe SUBCUT (15:57)
--- NOTE | 2020-07-29 18:30 | PC.NURSE ---
Patient transferred [facility] Pt transferred to Med Surg room 257 via wheelchair, belongings placed at bedside. Pt transferred from wheelchair to bed with one assist. MINING ENGINEER at bedside obtaining vitals, see documentation. Pt A&O at time of discharge.
--- NOTE | 2020-07-29 19:01 | P.PN_ITS ---
Subjective Subjective: Interval history: Creatinine improving today, good urine output, appears much better hydrated continues to be on supplemental O2, participating with PT OT Medications: Reviewed: Yes Vitals/I&O/Wt Last Vital Signs Temp 99.0 F 07/29/20 18:49 Pulse 60 07/29/20 18:49 Resp 18 07/29/20 18:49 BP 133/51 07/29/20 18:49 Pulse Ox 92 07/29/20 18:49 07/29/20 07/29/20 07/29/20 06:59 14:59 22:59 Intake Total 1241.500 / 5145.500 1429.792 / 1429.792 120 / 1549.792 Output Total 375 / 525 1100 / 1100 Balance 866.500 / 4620.500 1429.792 / 1429.792 -980 / 449.792 Weight last 48 hrs Weight 69.4 kg Physical Exam Narrative: EXAM NARRATIVE: GENERAL: Awake, alert, oriented, in no acute dist ress. Grossly dehydrated [] HEENT: Normocephalic, atraumatic, PERRLA. Right-sided hemiglossectomy [] CHEST: Clear to auscultation bilaterally. [] CVS: S1, S2 normal. No murmur, rubs, gallops. Peripheral pulses palpable. [] ABDOMEN: Soft, nontender. Nondistended. Bowel sounds heard. [] NEUROVASCULAR: Awake, alert. Power 5/5 all extremities. DTR+ [] EXTREMITIES: No edema. [] Urinary Catheter Management^: Caruso: Cath Placed During This Visit: yes, but has since been removed by the nurse Reason for Continuing Indwelling Catheter: Accurate Measurement of Urinary Output in Critically Ill Patients Urinary Catheter Date of Insertion: 07/28/20 Urinary Catheter Time of Insertion: 15:45 Date Urinary Catheter Removed: 07/29/20 Time Urinary Catheter Discontinued: 18:16 Data : 07/29/20 03:15 07/29/20 03:15 Micro: Microbiology 07/28/20 18:30 Blood Culture - Preliminary Blood NEGATIVE TO DATE 07/28/20 18:25 Blood Culture - Preliminary Blood NEGATIVE TO DATE A&P Assessment and plan (1) Acute renal failure: Last known creatinine at 1.3. Today creatinine is at 4.8---> improving to 2.2 Patient overall appears to be grossly dehydrated, suspect that NALDO may be related to poor p.o. intake over the last 2 to 3 weeks as reported by family members. Likely also contributed by rhabdomyolysis. Continue normal saline at 125 cc/h, Hold lisinopril Continue Flomax Abdominal ultrasound without any gross hydronephrosis Status: Acute Qualifiers: Acute renal failure type: unspecified Qualified Code(s): N17.9 - Acute kidney failure, unspecified (2) Acute hypotension: Now resolved, off pressors appears to be related to hypovolemia from dehydration. IVF as above no current signs or symptoms of infection check procal if develops fever, to start emepiric abx UA not c/w UTI, atelactsis in left lung base , CT abdomen without gross signs of infection Status: Acute (3) Hypoxia: New per history, has a h/o COPD, duonebs q4h + budesonide supplemental 02 to keep saturation >90% No acute exacerbation of COPD at this time, hold off on steroids Status: Acute (4) Rhabdomyolysis: hydration as above Status: Acute Additional A&P Information DVT ppx: lovenox Limited resuscitation: Okay for intubation and mechanical ventilation if reversible respiratory cause, no chest compressions Attestations Medical Necessity Statement*: ongoing need for iv hydration, monitor renal function Coding Level of Care Code Acute Veterinary Bacteriologist for [facility] Diagnoses Acute renal failure N17.9 Acute renal failure type: unspecified Acute hypotension I95.9 Hypoxia R09.02 Rhabdomyolysis M62.82
[2020-07-29] MEDS: BuSPIRONE 10 mg Tablet 15 MG PO (21:32)
[2020-07-29] MEDS: atorvastatin 40 mg Tablet PO (21:32)
[2020-07-29] MEDS: trazodone 100 mg Tablet 50 MG PO (21:32)
[2020-07-30] VITALS (11 sets, daily range): BP systolic 114–147; BP diastolic 51–67; PULSE 57–82; RESP 16–19; TEMP 36.8–37.6; O2SAT 91–97
[2020-07-30] MEDS: sodium chloride 0.9% 1,000 ML 125 ML IV ×2 (01:02→09:23)
--- NOTE | 2020-07-30 02:56 | PC.NURSE ---
Removed old dressing from PT left forearm, 7 cm X 2.2 cm wound with large amount of slough noted to wound bed and moderate amount of yellow purulent drainage to old dressing, photo sent to night time hospitalist Dr. Crocker and he responded that he would request surgery consult tomorrow. Wound cleansed with NS and patted dry, new Telfa applied and wrapped with gauze. Pt denied any complaints of pain during dressing change.
[2020-07-30 03:57] LABS: Urine Creatinine 77 mg/dL (39-259)
[2020-07-30] MEDS: aspirin 81 mg EC Tablet PO (05:22)
[2020-07-30] MEDS: venlafaxine ER (24HR) 75 mg Capsule 225 MG PO (05:22)
[2020-07-30 06:03] LABS: Basophils # 0.1 10^3/uL (0.0-0.1); Basophils % 1.1 %; Eosinophils # 0.2 10^3/uL (0.0-0.8); Eosinophils % 2.5 %; Hematocrit 28.4 % (42.0-52.0); Hemoglobin 8.8 g/dL (11.7-16.6); Lymphocytes # 1.5 10^3/uL (0.8-4.8); Lymphocytes % 17.4 %; Mean Corpuscular Hemoglobin 28.2 pg (28.0-34.0); Mean Platelet Volume 10.4 fL (7.4-10.4); Monocytes % 11.2 %; Neutrophils # 5.94 10^3/uL (1.8-7.7); Neutrophils % 67.5 %; Nucleated Red Blood Cells % 0 %; Platelet Count 313 10^3/cmm (130-400); Red Blood Count 3.12 10^6/uL (4.1-5.3); Red Cell Distribution Width 13.2 % (12.1-15.1); White Blood Count 8.8 10^3/uL (4.0-10.0)
[2020-07-30 06:40] LABS: Alanine Aminotransferase 54 U/L (0-41); Albumin Level 2.5 g/dL (3.5-5.2); Alkaline Phosphatase 183 IU/L (40-130); Anion Gap 13.3 (5-19); Aspartate Amino Transferase 117 U/L (0-40); Blood Urea Nitrogen 9 mg/dL (8-23); Calcium 8.1 mg/dL (8.5-10.5); Carbon Dioxide 24 mmol/L (22-29); Chloride 110 mmol/L (98-107); Globulin 2.9 g/dL (1.3-4.6); Glucose 75 mg/dL (65-115); Osmolality Calculated 295 mOsm/kg (285-295); Potassium 3.3 mmol/L (3.5-5.1); Sodium 144 mmol/L (136-145); Total Bilirubin 0.4 mg/dL (0.15-1.2); Total Protein 5.4 g/dL (6.6-8.7)
[2020-07-30 07:07] LABS: Creatine Phosphokinase 2771 U/L (39-308)
[2020-07-30] MEDS: ipratropium-albuterol 3 mL Neb INHALATION ×2 (07:55→21:06)
[2020-07-30] MEDS: budesonide 0.5 mg/2 mL Neb INHALATION ×2 (07:55→21:07)
[2020-07-30] MEDS: cyclobenzaprine 10 mg Tablet PO (09:22)
[2020-07-30] MEDS: tamsulosin 0.4 mg Capsule PO ×2 (09:23→19:51)
[2020-07-30] MEDS: gabapentin 300 mg Capsule PO ×3 (09:23→21:03)
[2020-07-30] MEDS: famotidine 20 mg Tablet PO ×2 (09:23→19:51)
--- NOTE | 2020-07-30 15:42 | PC.RESP ---
Smoking Cessation and Pulmonary Rehab information sent to patient.
[2020-07-30] MEDS: enoxaparin 40 mg/0.4 mL Syringe SUBCUT (16:27)
[2020-07-30] MEDS: lanolin oint 7 gm 1 APPLIC TOPICAL (16:27)
--- NOTE | 2020-07-30 17:44 | P.PN_ITS ---
Subjective Subjective: Interval history: Kidney function is much improving, now normalized. Good urine output. T-max 99.3. Appears dyspneic on exam today Medications: Reviewed: Yes Vitals/I&O/Wt Last Vital Signs Temp 99.3 F 07/30/20 16:00 Pulse 57 L 07/30/20 16:00 Resp 16 07/30/20 16:00 BP 147/56 07/30/20 16:00 Pulse Ox 91 07/30/20 16:00 07/30/20 07/30/20 07/30/20 06:59 14:59 22:59 Intake Total 480 / 3029.792 1292.917 / 1292.917 127.083 / 1420.000 Balance 480 / 1146.730 5872.917 / 1292.917 127.083 / 1420.000 Physical Exam Narrative: EXAM NARRATIVE: GENERAL: Awake, alert, oriented, tachypneic on exam today. HEENT: Normocephalic, atraumatic, PERRLA. Right-sided hemiglossectomy. [] CHEST: B/L coarse crackles to auscultation all areas [] CVS: S1, S2 normal. No murmur, rubs, gallops. Peripheral pulses palpable. [] ABDOMEN: Soft, nontender. Nondistended. Bowel sounds heard. [] NEUROVASCULAR: Awake, alert. Power 5/5 all extremities. DTR+ [] EXTREMITIES: No edema. [] Urinary Catheter Management^: Caruso: Cath Placed During This Visit: yes, but has since been removed by the nurse Reason for Continuing Indwelling Catheter: Accurate Measurement of Urinary Outp ut in Critically Ill Patients Urinary Catheter Date of Insertion: 07/28/20 Urinary Catheter Time of Insertion: 15:45 Date Urinary Catheter Removed: 07/29/20 Time Urinary Catheter Discontinued: 18:16 Data : 07/30/20 05:17 07/30/20 05:17 Micro: Microbiology 07/28/20 18:30 Blood Culture - Preliminary Blood NEGATIVE TO DATE 07/28/20 18:25 Blood Culture - Preliminary Blood NEGATIVE TO DATE A&P Assessment and plan (1) Acute renal failure: creatinine improved 4.8---> 0.8 with hydration Patient overall appears to be grossly dehydrated, suspect that NALDO may be related to poor p.o. intake over the last 2 to 3 weeks as reported by family members. Likely also contributed by rhabdomyolysis from repeated falls as reported by family Apperas to be fluid overloaded at this time likely 2/2 overhydration. D/c IVF, lasix 40mg iv x 1 now Hold lisinopril, BP well controlled Continue Flomax Abdominal ultrasound without any gross hydronephrosis Status: Acute Qualifiers: Acute renal failure type: unspecified Qualified Code(s): N17.9 - Acute kidney failure, unspecified (2) Acute hypotension: Now resolved, off pressors appears to be related to hypovolemia from dehydration. D/c IVF, encourage po intake no current signs or symptoms of infection Procal negative UA not c/w UTI, atelactsis in left lung base , CT abdomen without gross signs of infection Status: Acute (3) Hypoxia: New per history, has a h/o COPD, duonebs q4h + budesonide supplemental 02 to keep saturation >90% lasix 40mg iv x 1 today D dimer elevated, cannot get CTA chest due to NALDO, check LE duplex to evalute for DVT Rapid COVID ag negative Status: Acute (4) Rhabdomyolysis: hydration as above , discontinued today due to fluid overload Status: Acute Additional A&P Information DVT ppx: lovenox Dispo: D/c to SNF, appreciate PT evaluation Limited resuscitation: Okay for intubation and mechanical ventilation if reversible respiratory cause, no chest compressions Attestations Medical Necessity Statement*: hypoxia, stop IVF, needs diuresis today, montior kidney function closely Coding Level of Care Code Acute Aircraft Refueler for [facility] Diagnoses Acute renal failure N17.9 Acute renal failure type: unspecified Acute hypotension I95.9 Hypoxia R09.02 Rhabdomyolysis M62.82
--- NOTE | 2020-07-30 17:47 | XRR_ITS ---
PROCEDURE INFORMATION: Exam: XR Chest Exam date and time: 07/30/2020 5:50 PM Age: 75 years old Clinical indication: Other: Chf; Prior surgery TECHNIQUE: Imaging protocol: XR of the chest. Views: 1 view. COMPARISON: CR XR chest 1V portable [id number] 07/28/2020 9:58 AM FINDINGS: Tubes, catheters and devices: Clips in the neck. Lungs: Improved atelectasis in the left base. Stable atelectasis in the right base. Probable emphysema. Pleural spaces: Unremarkable. No pleural effusion. No pneumothorax. Heart/Mediastinum: Unremarkable. No cardiomegaly. Bones/joints: Unremarkable. XR/XR chest 1V portable [id number] IMPRESSION: Mild basilar atelectasis, improved on the left.
[2020-07-30] MEDS: FUROsemide 10 mg/mL SDV 4mL 40 MG IVP (19:50)
[2020-07-30] MEDS: potassium chloride ER 20 mEq Tablet 40 MEQ PO (19:51)
[2020-07-30] MEDS: BuSPIRONE 10 mg Tablet 15 MG PO (21:04)
[2020-07-30] MEDS: atorvastatin 40 mg Tablet PO (21:04)
[2020-07-30] MEDS: trazodone 100 mg Tablet 50 MG PO (21:06)
[2020-07-31] VITALS (11 sets, daily range): BP systolic 111–167; BP diastolic 61–79; PULSE 71–114; RESP 16–20; TEMP 36.9–37.8; O2SAT 91–99
[2020-07-31] MEDS: aspirin 81 mg EC Tablet PO (05:22)
[2020-07-31] MEDS: venlafaxine ER (24HR) 75 mg Capsule 225 MG PO (05:22)
[2020-07-31 06:00] LABS: Basophils # 0.1 10^3/uL (0.0-0.1); Basophils % 0.8 %; Eosinophils # 0.1 10^3/uL (0.0-0.8); Eosinophils % 1.2 %; Hematocrit 31.8 % (42.0-52.0); Hemoglobin 9.6 g/dL (11.7-16.6); Lymphocytes # 1.2 10^3/uL (0.8-4.8); Lymphocytes % 12.2 %; Mean Corpuscular HGB Conc 30.2 g/dL (30.0-36.0); Mean Corpuscular Hemoglobin 28.1 pg (28.0-34.0); Mean Platelet Volume 10.7 fL (7.4-10.4); Monocytes # 1.1 10^3/uL (0.2-0.9); Monocytes % 10.3 %; Neutrophils # 7.64 10^3/uL (1.8-7.7); Neutrophils % 75.2 %; Nucleated Red Blood Cells % 0 %; Platelet Count 340 10^3/cmm (130-400); Red Blood Count 3.42 10^6/uL (4.1-5.3); Red Cell Distribution Width 13.2 % (12.1-15.1); White Blood Count 10.2 10^3/uL (4.0-10.0)
[2020-07-31 06:39] LABS: Alanine Aminotransferase 45 U/L (0-41); Albumin Level 2.7 g/dL (3.5-5.2); Alkaline Phosphatase 176 IU/L (40-130); Anion Gap 17.5 (5-19); Aspartate Amino Transferase 74 U/L (0-40); Blood Urea Nitrogen 4 mg/dL (8-23); Calcium 8.6 mg/dL (8.5-10.5); Carbon Dioxide 25 mmol/L (22-29); Chloride 102 mmol/L (98-107); Globulin 3.1 g/dL (1.3-4.6); Glucose 87 mg/dL (65-115); NT Pro B Type Natriuretic Pept 4711 pg/mL (0-125); Osmolality Calculated 288 mOsm/kg (285-295); Potassium 3.5 mmol/L (3.5-5.1); Sodium 141 mmol/L (136-145); Total Bilirubin 0.5 mg/dL (0.15-1.2); Total Protein 5.8 g/dL (6.6-8.7)
[2020-07-31 06:48] LABS: Creatine Phosphokinase 947 U/L (39-308)
[2020-07-31] MEDS: ipratropium-albuterol 3 mL Neb INHALATION ×2 (08:45→20:53)
[2020-07-31] MEDS: budesonide 0.5 mg/2 mL Neb INHALATION ×2 (08:45→20:53)
[2020-07-31] MEDS: famotidine 20 mg Tablet PO ×2 (10:23→18:13)
[2020-07-31] MEDS: tamsulosin 0.4 mg Capsule PO ×2 (10:23→18:13)
[2020-07-31] MEDS: gabapentin 300 mg Capsule PO ×3 (10:23→20:23)
--- NOTE | 2020-07-31 14:32 | DCPLANNER ---
IMM copy given to patient, updated in patients chart, signed and dated.
[2020-07-31] MEDS: vancomycin 1,000 MG in sodium chloride 0.9% 250 ML 250 MG IV (14:52)
--- NOTE | 2020-07-31 17:50 | USCV_ITS ---
Asif Sky Age: 75 Gender: M : 1945 Exam Date: 07/31/2020 09:29 Ordering Phys: Tatiana Pickens MD Technologist: Jim Echavarria Exam Location: [facility] – [place] Indication: BED STASIS HISTORY: Lower extremity edema. PROCEDURES: The venous duplex Doppler examination of both lower extremities was performed in the standard fashion. The following venous structures were evaluated: common femoral vein, profunda vein, proximal portion of the greater saphenous vein, superficial femoral vein, and the popliteal vein. In addition, the posterior tibial and peroneal trunk were evaluated. FINDINGS: Normal 2-D Doppler and augmentation and compressibility throughout the lower extremity venous structures. Additional imaging through the proximal calf veins also reveals no thrombus. Limited evaluation of the greater saphenous vein is patent with no thrombus. CONCLUSIONS No DVT bilateral lower extremities. Dr. Dinora Sky DO (Electronically Signed) Final Date: 02 August 2020 07:46 S
[2020-07-31] MEDS: enoxaparin 40 mg/0.4 mL Syringe SUBCUT (18:13)
--- NOTE | 2020-07-31 18:14 | P.PN_ITS ---
Subjective Subjective: Interval history: T-max 100.1 Fahrenheit overnight, oxygen requirement at 5 L/min at this present time. Renal function is stable. Leukocytosis trending down. Reported overnight that patient's left arm, which is a site of previous graft harvest appears to be unhealthy and cellulitic. Patient did not permit me to examine this today and open his dressing as he is annoyed about still being in the hospital. Medications: Reviewed: Yes Vitals/I&O/Wt Last Vital Signs Temp 98.5 F 07/31/20 16:00 Pulse 74 07/31/20 16:00 Resp 16 07/31/20 16:00 BP 133/72 07/31/20 16:00 Pulse Ox 94 07/31/20 16:00 07/31/20 07/31/20 07/31/20 06:59 14:59 22:59 Intake Total 360 / 2010.000 310 / 310 250 / 560 Output Total 1090 / 2765 100 / 100 Balance -730 / -755.000 210 / 210 250 / 460 Physical Exam Narrative: EXAM NARRATIVE: GENERAL: Awake, alert, oriented, irritable HEENT: Normocephalic, atraumatic, PERRLA. Right-sided hemiglossectomy. [] CHEST: B/L coarse crackles to auscultation all areas [] CVS: S1, S2 normal. No murmur, rubs, gallops. Peripheral pulses palpable. [] ABDOMEN: Soft, nontender. Nondistended. Bowel sounds heard. [] NEUROVASCULAR: Awake, alert. Power 5/5 all extremities. DTR+ [] EXTREMITIES: Minimal bilateral pitting edema both lower extremities] Urinary Catheter Management^: Caruso: Cath Placed During This Visit: yes, but has since been removed by the nurse Reason for Continuing Indwelling Catheter: Accurate Measurement of Urinary Outpu t in Critically Ill Patients Urinary Catheter Date of Insertion: 07/28/20 Urinary Catheter Time of Insertion: 15:45 Date Urinary Catheter Removed: 07/29/20 Time Urinary Catheter Discontinued: 18:16 Data : 07/31/20 05:05 07/31/20 05:05 Micro: Microbiology 07/31/20 16:40 Blood Culture - Preliminary Blood SPECIMEN COLLECTED 07/30/20 02:40 Wound Culture - Preliminary Arm - Left Coagulase negativ staphylococc A&P Assessment and plan (1) Acute renal failure: Acute renal failure is now resolved with hydration Likely was related to dehydration due to poor p.o. intake over the past few weeks and also rhabdomyolysis from recurrent falls Received IV fluid resuscitation which improved his kidney function and dehydration. Then tended towards being over hydrated and developed fluid overload, status post Lasix 40 mg. Appears more comfortable today with his breathing, however developed lower extremity pitting edema. Additional 40 mg IV Lasix today Hold lisinopril, BP well controlled Continue Flomax Abdominal ultrasound without any gross hydronephrosis Status: Acute Qualifiers: Acute renal failure type: unspecified Qualified Code(s): N17.9 - Acute kidney failure, unspecified (2) Acute hypotension: Now resolved appears to be related to hypovolemia from dehydration. Continued to encourage p.o. intake Developed fever overnight to a T-max of 100.1 Fahrenheit. This may be related to atelectasis seen on chest x-ray yesterday. Added incentive spirometry. UA not c/w UTI, atelactsis in left lung base , CT abdomen without gross signs of infection Nursing brought up concerned that his left arm wound, which is the site of her recent graft harvest for hemiglossectomy appears to be infected. Patient did not permit me to examine his forearm as he is annoyed at still being in the hospital. We will add empiric antibiotic cefazolin and vancomycin at this time and attempt to examine later today with the nurse. Status: Acute (3) Hypoxia: New per history, has a h/o COPD, duonebs q4h + budesonide supplemental 02 to keep saturation >90% lasix 40mg iv x 1 today D dimer elevated, cannot get CTA chest due to NALDO, lower extremity Doppler taken, results pending at this time Rapid COVID ag negative Status: Acute (4) Rhabdomyolysis: hydration as above, now improving with serially trending down CPK and normalizing kidney function Status: Acute Additional A&P Information DVT ppx: lovenox Dispo: D/c to SNF, appreciate PT evaluation Limited resuscitation: Okay for intubation and mechanical ventilation if reversible respiratory cause, no chest compressions Attestations Medical Necessity Statement*: Fever overnight, needs further evaluation, need for IV diuresis today, disposition planning, pending placement to SNF Coding Level of Care Code Acute Teacher 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
[2020-07-31] MEDS: FUROsemide 10 mg/mL SDV 4mL 40 MG IVP (18:31)
[2020-07-31] MEDS: atorvastatin 40 mg Tablet PO (20:23)
[2020-07-31] MEDS: trazodone 100 mg Tablet 50 MG PO (20:23)
[2020-07-31] MEDS: BuSPIRONE 10 mg Tablet 15 MG PO (20:23)
[2020-08-01] VITALS (17 sets, daily range): BP systolic 78–140; BP diastolic 56–90; PULSE 66–108; RESP 16–18; TEMP 36.3–36.9; O2SAT 90–98
[2020-08-01] MEDS: vancomycin 1,000 MG in sodium chloride 0.9% 250 ML 250 MG IV ×2 (02:07→15:20)
[2020-08-01] MEDS: aspirin 81 mg EC Tablet PO (06:07)
[2020-08-01] MEDS: venlafaxine ER (24HR) 75 mg Capsule 225 MG PO (06:07)
[2020-08-01 07:52] LABS: Basophils # 0.1 10^3/uL (0.0-0.1); Basophils % 0.8 %; Eosinophils # 0.1 10^3/uL (0.0-0.8); Hematocrit 34.4 % (42.0-52.0); Lymphocytes # 1.2 10^3/uL (0.8-4.8); Mean Corpuscular Hemoglobin 28.6 pg (28.0-34.0); Mean Corpuscular Volume 89.6 fL (80-94); Mean Platelet Volume 10.5 fL (7.4-10.4); Monocytes # 1.5 10^3/uL (0.2-0.9); Monocytes % 15.6 %; Neutrophils # 6.64 10^3/uL (1.8-7.7); Neutrophils % 69.4 %; Nucleated Red Blood Cells % 0 %; Platelet Count 372 10^3/cmm (130-400); Red Blood Count 3.84 10^6/uL (4.1-5.3); Red Cell Distribution Width 13.2 % (12.1-15.1); White Blood Count 9.6 10^3/uL (4.0-10.0)
[2020-08-01 08:17] LABS: Alanine Aminotransferase 33 U/L (0-41); Albumin Level 3.2 g/dL (3.5-5.2); Alkaline Phosphatase 182 IU/L (40-130); Anion Gap 14.8 (5-19); Aspartate Amino Transferase 43 U/L (0-40); Blood Urea Nitrogen 5 mg/dL (8-23); Calcium 8.8 mg/dL (8.5-10.5); Carbon Dioxide 33 mmol/L (22-29); Chloride 95 mmol/L (98-107); Globulin 3.5 g/dL (1.3-4.6); Glucose 114 mg/dL (65-115); Osmolality Calculated 288 mOsm/kg (285-295); Sodium 140 mmol/L (136-145); Total Bilirubin 0.5 mg/dL (0.15-1.2); Total Protein 6.7 g/dL (6.6-8.7)
[2020-08-01 08:27] LABS: Potassium 2.8 mmol/L (3.5-5.1)
[2020-08-01] MEDS: ipratropium-albuterol 3 mL Neb INHALATION ×2 (08:38→21:50)
[2020-08-01] MEDS: budesonide 0.5 mg/2 mL Neb INHALATION ×2 (08:38→21:50)
[2020-08-01] MEDS: tamsulosin 0.4 mg Capsule PO ×2 (08:58→17:22)
[2020-08-01] MEDS: famotidine 20 mg Tablet PO ×2 (08:58→17:22)
[2020-08-01] MEDS: gabapentin 300 mg Capsule PO ×3 (08:58→21:46)
[2020-08-01] MEDS: acetaminophen 325 mg Tablet 650 MG PO (09:03)
[2020-08-01 13:30] LABS: Vancomycin Trough 9.4 ug/mL (10-15)
[2020-08-01] MEDS: sodium chloride 0.9% 500 ML 999 ML IV (13:51)
[2020-08-01] MEDS: enoxaparin 40 mg/0.4 mL Syringe SUBCUT (15:24)
--- NOTE | 2020-08-01 16:02 | PC.NURSE ---
dressing changed at 1300, Dr Pickens ordered for dressing to be changed daily. cleanse with ns, apply betadine to wound, let dry, cover with Petrolatum gauze strip, telfa folded in half for padding, then cover with covederm. pt requested kerlex and tape be applied. pt tolerated well.
--- NOTE | 2020-08-01 16:26 | PC.NURSE ---
physician notified at approximately 1245 of blood pressure being 78/58 manually taken in left arm by this nurse, dr duggan ordered a 500ml bolus approximately 1430 pt blood pressure was 122/64. physician notified of increase in blood pressure after fluid bolus.
--- NOTE | 2020-08-01 18:11 | PM.PN ---
Subjective Subjective: Interval history: No new complaints today. Allowed examination of his arm today. Blood pressure again noted to be systolic in the 70s, improved after 500 cc of fluid bolus to 122 systolic. Medications: Reviewed: Yes Vitals/I&O/Wt Last Vital Signs Temp 97.6 F 08/01/20 16:00 Pulse 67 08/01/20 16:00 Resp 17 08/01/20 16:00 BP 78/58 08/01/20 16:21 Pulse Ox 98 08/01/20 16:00 08/01/20 08/01/20 08/01/20 06:59 14:59 22:59 Intake Total 300 / 1030 770 / 770 870 / 1640 Output Total 600 / 1300 Balance -300 / -270 770 / 770 870 / 1640 Physical Exam Narrative: EXAM NARRATIVE: GENERAL: Awake, alert, oriented, cooperative HEENT: Normocephalic, atraumatic, PERRLA. Right-sided hemiglossectomy. [] CHEST: B/L coarse crackles to auscultation all areas [] CVS: S1, S2 normal. No murmur, rubs, gallops. Peripheral pulses palpable. [] ABDOMEN: Soft, nontender. Nondistended. Bowel sounds heard. [] NEUROVASCULAR: Awake, alert. Power 5/5 all extremities. DTR+ [] EXTREMITIES: Left forearm plantar aspect with approximately 6x 2 cm lesion at site of graft harvest with exposed tendon, necrotic sloughing at base, no gross surrounding signs of cellulitis. Urinary Catheter Management^: Caruso: Cath Placed During This Visit: yes, but has since been removed by the nurse Reason for Continuing Indwelling Catheter: Accurate Measurement of Urinary Output in Critically Ill Patients Urinary Catheter Date of Insertion: 07/28/20 Urinary Catheter Time of Insertion: 15:45 Date Urinary Catheter Removed: 07/29/20 Time Urinary Catheter Discontinued: 18:16 Data : 08/01/20 06:49 08/01/20 06:49 Micro: Microbiology 07/31/20 16:40 Blood Culture - Preliminary Blood NEGATIVE TO DATE 07/30/20 02:40 Wound Culture - Preliminary Arm - Left Coagulase negativ staphylococc Staphylococcus aureus 08/01/20 06:49 Blood Culture - Preliminary Blood SPECIMEN COLLECTED A&P Assessment and plan (1) Acute renal failure: Acute renal failure is now resolved with hydration Likely was related to dehydration due to poor p.o. intake over the past few weeks and also rhabdomyolysis from recurrent falls Received IV fluid resuscitation which improved his kidney function and dehydration. Hold lisinopril Continue Flomax Abdominal ultrasound without any gross hydronephrosis Status: Acute Qualifiers: Acute renal failure type: unspecified Qualified Code(s): N17.9 - Acute kidney failure, unspecified (2) Acute hypotension: Now resolved appears to be related to hypovolemia from dehydration. Continued to encourage p.o. intake Developed fever overnight to a T-max of 100.1 Fahrenheit. This may be related to atelectasis seen on chest x-ray yesterday vs SSTI ove rleft forearm. Added incentive spirometry. UA not c/w UTI, atelactsis in left lung base , CT abdomen without gross signs of infection Nursing brought up concerned that his left arm wound, which is the site of her recent graft harvest for hemiglossectomy appears to be infected. Noted to have open woun with necrotic sloughing at base. On empiric abx currently, may be trasnitioned to po once staph aureus identifeid as MSSA vs MRSA on cx. Will need wound care referral at discharge. Status: Acute (3) Hypoxia: New per history, has a h/o COPD, duonebs q4h + budesonide supplemental 02 to keep saturation >90% D dimer elevated, cannot get CTA chest due to NALDO, lower extremity Doppler taken, results pending at this time Rapid COVID ag negative Status: Acute (4) Rhabdomyolysis: hydration as above, now improving with serially trending down CPK and normalizing kidney function Status: Acute Additional A&P Information DVT ppx: lovenox Dispo: D/c to SNF, appreciate PT evaluation , lives by himself, high fall risk , cannot manage his own meals, unsafe home discharge Limited resuscitation: Okay for intubation and mechanical ventilation if reversible respiratory cause, no chest compressions Attestations Medical Necessity Statement*: ib fluids resumed due to hypotension, hypokalemia needs iv supplementation, ongoing need for abx, disposition planning Coding Level of Care Code Acute 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
[2020-08-01] MEDS: lidocaine 1% 5 ML in potassium chloride premix 100 ML 25 ML IV ×2 (19:02→23:16)
[2020-08-01] MEDS: sodium chloride 0.9% 1,000 ML 50 ML IV (19:10)
[2020-08-01] MEDS: BuSPIRONE 10 mg Tablet 15 MG PO (21:46)
[2020-08-01] MEDS: trazodone 100 mg Tablet 50 MG PO (21:46)
[2020-08-01] MEDS: atorvastatin 40 mg Tablet PO (21:46)
[2020-08-02] VITALS (13 sets, daily range): BP systolic 108–122; BP diastolic 61–71; PULSE 63–92; RESP 16–18; TEMP 36.5–37; O2SAT 92–100
[2020-08-02] MEDS: vancomycin 1,000 MG in sodium chloride 0.9% 250 ML 250 MG IV ×2 (01:46→15:24)
[2020-08-02] MEDS: venlafaxine ER (24HR) 75 mg Capsule 225 MG PO (05:18)
[2020-08-02] MEDS: aspirin 81 mg EC Tablet PO (05:18)
[2020-08-02 06:24] LABS: Alanine Aminotransferase 14 U/L (0-41); Alkaline Phosphatase 163 IU/L (40-130); Anion Gap 13.6 (5-19); Aspartate Amino Transferase 28 U/L (0-40); Blood Urea Nitrogen 6 mg/dL (8-23); Calcium 8.2 mg/dL (8.5-10.5); Carbon Dioxide 31 mmol/L (22-29); Chloride 101 mmol/L (98-107); Globulin 3.2 g/dL (1.3-4.6); Glucose 86 mg/dL (65-115); Osmolality Calculated 291 mOsm/kg (285-295); Potassium 3.6 mmol/L (3.5-5.1); Sodium 142 mmol/L (136-145); Total Bilirubin 0.3 mg/dL (0.15-1.2); Total Protein 6.2 g/dL (6.6-8.7)
[2020-08-02] MEDS: budesonide 0.5 mg/2 mL Neb INHALATION ×2 (07:45→21:02)
[2020-08-02] MEDS: ipratropium-albuterol 3 mL Neb INHALATION (07:45)
[2020-08-02 07:57] LABS: Basophils # 0.1 10^3/uL (0.0-0.1); Basophils % 0.9 %; Eosinophils # 0.3 10^3/uL (0.0-0.8); Eosinophils % 2.3 %; Hematocrit 29.3 % (42.0-52.0); Hemoglobin 9.3 g/dL (11.7-16.6); Lymphocytes # 1.2 10^3/uL (0.8-4.8); Lymphocytes % 10.7 %; Mean Corpuscular HGB Conc 31.7 g/dL (30.0-36.0); Mean Corpuscular Hemoglobin 28.7 pg (28.0-34.0); Mean Corpuscular Volume 90.4 fL (80-94); Mean Platelet Volume 9.9 fL (7.4-10.4); Monocytes # 1.3 10^3/uL (0.2-0.9); Neutrophils # 8.66 10^3/uL (1.8-7.7); Neutrophils % 74.5 %; Nucleated Red Blood Cells % 0 %; Platelet Count 351 10^3/cmm (130-400); Red Blood Count 3.24 10^6/uL (4.1-5.3); Red Cell Distribution Width 13.1 % (12.1-15.1); White Blood Count 11.6 10^3/uL (4.0-10.0)
[2020-08-02] MEDS: gabapentin 300 mg Capsule PO ×3 (09:23→20:45)
[2020-08-02] MEDS: tamsulosin 0.4 mg Capsule PO ×2 (09:23→18:01)
[2020-08-02] MEDS: famotidine 20 mg Tablet PO ×2 (09:23→18:01)
--- NOTE | 2020-08-02 12:05 | P.PN_ITS ---
Subjective Subjective: Interval history: Patient was seen and examined this morning.No acute event overnight.Vitals and labs have been reviewed. Medications: Reviewed: Yes Vitals/I&O/Wt Last Vital Signs Temp 98.6 F 08/02/20 11:16 Pulse 87 08/02/20 11:16 Resp 18 08/02/20 11:16 BP 122/64 08/02/20 11:16 Pulse Ox 98 08/02/20 11:16 08/01/20 08/02/20 08/02/20 22:59 06:59 14:59 Intake Total 1040 / 1810 460 / 2270 170 / 170 Output Total 250 / 250 325 / 325 Balance 1040 / 1810 210 / 2020 -155 / -155 Physical Exam Const: COMMON NORMALS: patient oriented x3 HENMT: COMMON NORMALS: normocephalic and atraumatic HEAD & SCALP: normocephalic and atraumatic Resp: COMMON NORMALS: clear to auscultation bilaterally AUSCULTATION: clear to auscultation bilaterally Cardio: COMMON NORMALS: regular rate, regular rhythm, S1 normal heart sound present, S2 normal heart sound present, No gallops present (Cardio), No murmurs present (Cardio), No rub (Cardio) and Peripheral pulses 2+ throughout RATE: regular rate RHYTHM: regular rhythm HEART SOUNDS: S1 normal heart sound present and S2 normal heart sound present PERIPHERAL PULSES: Peripheral pulses 2+ throughout GI: COMMON NORMALS: Normal to inspection, nondistended, normoactive bowel sounds present, Soft to palpation, non-tender, No hepatosplenomegaly present and no masses AUSCULTATION: Yes normoactive bowel sounds PALPATION: Yes Soft to palpation and Yes No hepatosplenomegaly present RECTAL EXAM: Yes deferred Extremity: COMMON NORMALS: no clubbing, cyanosis or edema and no pedal edema OTHER: Left forearm plantar aspect with approximately 6x 2 cm lesion at site of graft harvest with exposed tendon, necrotic sloughing at base, no gross surrounding signs of cellulitis Neuro: COMMON NORMALS: patient oriented x3 Urinary Catheter Management^: Caruso: Cath Placed During This Visit: yes, but has since been removed by the nurse Reason for Continuing Indwelling Catheter: Accurate Measurement of Urinary Output in Critically Ill Patients Urinary Catheter Date of Insertion: 07/28/20 Urinary Catheter Time of Insertion: 15:45 Date Urinary Catheter Removed: 07/29/20 Time Urinary Catheter Discontinued: 18:16 Data : 08/02/20 07:30 08/02/20 04:54 Micro: Microbiology 08/01/20 06:49 Blood Culture - Preliminary Blood NEGATIVE TO DATE 07/31/20 16:40 Blood Culture - Preliminary Blood NEGATIVE TO DATE 07/30/20 02:40 Wound Culture - Preliminary Arm - Left Coagulase negativ staphylococc Staphylococcus aureus A&P Assessment and plan (1) Acute renal failure: Acute renal failure is now resolved with hydration Likely was related to dehydration due to poor p.o. intake over the past few weeks and also rhabdomyolysis from recurrent falls Received IV fluid resuscitation which improved his kidney function and dehydration. Hold lisinopril Continue Flomax Abdominal ultrasound without any gross hydronephrosis Status: Acute Qualifiers: Acute renal failure type: unspecified Qualified Code(s): N17.9 - Acute kidney failure, unspecified (2) Acute hypotension: Now resolved appears to be related to hypovolemia from dehydration. Continued to encourage p.o. intake Developed fever overnight to a T-max of 100.1 Fahrenheit. This may be related to atelectasis seen on chest x-ray yesterday vs SSTI ove rleft forearm. Added incentive spirometry. UA not c/w UTI, atelactsis in left lung base , CT abdomen without gross signs of infection Nursing brought up concerned that his left arm wound, which is the site of her recent graft harvest for hemiglossectomy appears to be infected. Noted to have open woun with necrotic sloughing at base. On empiric abx currently, may be trasnitioned to po once staph aureus identifeid as MSSA vs MRSA on cx. Will need wound care referral at discharge. Status: Acute (3) Hypoxia: New per history, has a h/o COPD, duonebs q4h + budesonide supplemental 02 to keep saturation >90% D dimer elevated, cannot get CTA chest due to NALDO, lower extremity Doppler: No dvt Rapid COVID ag negative Status: Acute (4) Rhabdomyolysis: hydration as above, now improving with serially trending down CPK and normalizing kidney function Status: Acute Additional A&P Information DVT ppx: lovenox Dispo: D/c to SNF, appreciate PT evaluation , lives by himself, high fall risk , cannot manage his own meals, unsafe home discharge Limited resuscitation: Okay for intubation and mechanical ventilation if reversible respiratory cause, no chest compressions Attestations Medical Necessity Statement*: Patient needs to be in hospital for the management of above defined problems.Currently awaiting placement to SNF. 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
[2020-08-02] MEDS: enoxaparin 40 mg/0.4 mL Syringe SUBCUT (15:25)
[2020-08-02] MEDS: sodium chloride 0.9% 1,000 ML 50 ML IV (18:01)
[2020-08-02] MEDS: BuSPIRONE 10 mg Tablet 15 MG PO (20:45)
[2020-08-02] MEDS: atorvastatin 40 mg Tablet PO (20:45)
[2020-08-02] MEDS: trazodone 100 mg Tablet 50 MG PO (20:45)
[2020-08-02] MEDS: acetaminophen 325 mg Tablet 650 MG PO (22:10)
[2020-08-02] MEDS: cyclobenzaprine 10 mg Tablet PO (22:10)
[2020-08-03] VITALS (12 sets, daily range): BP systolic 96–147; BP diastolic 57–74; PULSE 59–88; RESP 15–18; TEMP 36.2–36.7; O2SAT 92–98
[2020-08-03] MEDS: vancomycin 1,000 MG in sodium chloride 0.9% 250 ML 250 MG IV ×2 (01:38→21:13)
[2020-08-03] MEDS: aspirin 81 mg EC Tablet PO (06:04)
[2020-08-03] MEDS: venlafaxine ER (24HR) 75 mg Capsule 225 MG PO (06:04)
--- NOTE | 2020-08-03 06:07 | PC.NURSE ---
SHIFT SUMMARY Has rested well tonight. CPAP on at HS. Was medicated X1 with Tylenol and Flexeril for c/o pain in left shoulder. Says is hoping to go to [facility] today. Voiding well per urinal. Required new IV start in the evening due to leaking and some redness at IV site. IV has infused well at 50ml/hr since restart. Receiving IV antibiotics
[2020-08-03] MEDS: famotidine 20 mg Tablet PO ×2 (09:58→17:19)
[2020-08-03] MEDS: tamsulosin 0.4 mg Capsule PO ×2 (09:58→17:19)
[2020-08-03] MEDS: gabapentin 300 mg Capsule PO ×3 (09:58→21:13)
[2020-08-03 13:51] LABS: Vancomycin Trough 20.9 ug/mL (10-15)
--- NOTE | 2020-08-03 14:11 | PM.PN ---
Subjective Subjective: Interval history: Patient was seen and examined this morning.No acute event overnight.Vitals and labs have been reviewed. Medications: Reviewed: Yes Vitals/I&O/Wt Last Vital Signs Temp 97.8 F 08/03/20 11:23 Pulse 88 08/03/20 11:23 Resp 17 08/03/20 11:23 BP 96/57 08/03/20 11:23 Pulse Ox 95 08/03/20 11:23 08/02/20 08/03/20 08/03/20 22:59 06:59 14:59 Intake Total 1350 / 1640 500 / 2140 960 / 960 Output Total 100 / 425 850 / 1275 250 / 250 Balance 1250 / 1215 -350 / 865 710 / 710 Physical Exam Const: COMMON NORMALS: patient oriented x3 HENMT: COMMON NORMALS: normocephalic and atraumatic HEAD & SCALP: normocephalic and atraumatic Resp: COMMON NORMALS: clear to auscultation bilaterally AUSCULTATION: clear to auscultation bilaterally Cardio: COMMON NORMALS: regular rate, regular rhythm, S1 normal heart sound present, S2 normal heart sound present, No gallops present (Cardio), No murmurs present (Cardio), No rub (Cardio) and Peripheral pulses 2+ throughout RATE: regular rate RHYTHM: regular rhythm HEART SOUNDS: S1 normal heart sound present and S2 normal heart sound present PERIPHERAL PULSES: Peripheral pulses 2+ throughout GI: COMMON NORMALS: Normal to inspection, nondistended, normoactive bowel sounds present, Soft to palpation, non-tender, No hepatosplenomegaly present and no masses AUSCULTATION: Yes normoactive bowel sounds PALPATION: Yes Soft to palpation and Yes No hepatosplenomegaly present RECTAL EXAM: Yes deferred Extremity: COMMON NORMALS: no clubbing, cyanosis or edema and no pedal edema OTHER: Left forearm plantar aspect with approximately 6x 2 cm lesion at site of graft harvest with exposed tendon, necrotic sloughing at base, no gross surrounding signs of cellulitis Neuro: COMMON NORMALS: patient oriented x3 Urinary Catheter Management^: Caruso: Cath Placed During This Visit: yes, but has since been removed by the nurse Reason for Continuing Indwelling Catheter: Accurate Measurement of Urinary Output in Critically Ill Patients Urinary Catheter Date of Insertion: 07/28/20 Urinary Catheter Time of Insertion: 15:45 Date Urinary Catheter Removed: 07/29/20 Time Urinary Catheter Discontinued: 18:16 Data : 08/02/20 07:30 08/02/20 04:54 Micro: Microbiology 07/28/20 18:30 Blood Culture - Final Blood NO GROWTH AFTER 5 DAYS 07/28/20 18:25 Blood Culture - Final Blood NO GROWTH AFTER 5 DAYS 07/30/20 02:40 Wound Culture - Final Arm - Left Methicillin Resis Staph Aureus A&P Assessment and plan (1) Acute renal failure: Acute renal failure is now resolved with hydration Likely was related to dehydration due to poor p.o. intake over the past few weeks and also rhabdomyolysis from recurrent falls Received IV fluid resuscitation which improved his kidney function and dehydration. Hold lisinopril Continue Flomax Abdominal ultrasound without any gross hydronephrosis Status: Acute Qualifiers: Acute renal failure type: unspecified Qualified Code(s): N17.9 - Acute kidney failure, unspecified (2) Acute hypotension: Now resolved appears to be related to hypovolemia from dehydration. Continued to encourage p.o. intake Developed fever overnight to a T-max of 100.1 Fahrenheit. This may be related to atelectasis seen on chest x-ray yesterday vs SSTI ove rleft forearm. Added incentive spirometry. UA not c/w UTI, atelactsis in left lung base , CT abdomen without gross signs of infection Nursing brought up concerned that his left arm wound, which is the site of her recent graft harvest for hemiglossectomy appears to be infected. Noted to have open woun with necrotic sloughing at base. Wound Culture :MRSA : Currently on Vancomycin.Will switch to PO ZYvox on discharge to complete 2 weeks course. wound care referral at discharge. Status: Acute (3) Hypoxia: New per history, has a h/o COPD, duonebs q4h + budesonide supplemental 02 to keep saturation >90% D dimer elevated, cannot get CTA chest due to NALDO, lower extremity Doppler: No dvt Rapid COVID ag negative Status: Acute (4) Rhabdomyolysis: hydration as above, now improving with serially trending down CPK and normalizing kidney function Status: Acute Additional A&P Information DVT ppx: lovenox Dispo: D/c to SNF, appreciate PT evaluation , lives by himself, high fall risk , cannot manage his own meals, unsafe home discharge Limited resuscitation: Okay for intubation and mechanical ventilation if reversible respiratory cause, no chest compressions Attestations Medical Necessity Statement*: Patient is currently awaiting placement to [facility]. 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
--- NOTE | 2020-08-03 15:15 | PC.NURSE ---
Dr Suresh discontinued fluids on this patient
[2020-08-03] MEDS: enoxaparin 40 mg/0.4 mL Syringe SUBCUT (15:16)
[2020-08-03] MEDS: budesonide 0.5 mg/2 mL Neb INHALATION (20:09)
[2020-08-03] MEDS: ipratropium-albuterol 3 mL Neb INHALATION (20:09)
[2020-08-03] MEDS: BuSPIRONE 10 mg Tablet 15 MG PO (21:13)
[2020-08-03] MEDS: atorvastatin 40 mg Tablet PO (21:13)
[2020-08-03] MEDS: trazodone 100 mg Tablet 50 MG PO (21:15)
[2020-08-04] VITALS (9 sets, daily range): BP systolic 124–143; BP diastolic 59–78; PULSE 68–91; RESP 16–19; TEMP 36.6–37.2; O2SAT 92–98
[2020-08-04 05:57] LABS: Basophils # 0.1 10^3/uL (0.0-0.1); Basophils % 0.7 %; Eosinophils # 0.2 10^3/uL (0.0-0.8); Eosinophils % 1.6 %; Hematocrit 31.1 % (42.0-52.0); Lymphocytes # 1.6 10^3/uL (0.8-4.8); Lymphocytes % 10.2 %; Mean Corpuscular HGB Conc 32.2 g/dL (30.0-36.0); Mean Corpuscular Hemoglobin 28.7 pg (28.0-34.0); Mean Corpuscular Volume 89.4 fL (80-94); Mean Platelet Volume 10.3 fL (7.4-10.4); Monocytes # 1.3 10^3/uL (0.2-0.9); Monocytes % 8.6 %; Neutrophils # 12.06 10^3/uL (1.8-7.7); Neutrophils % 78.6 %; Nucleated Red Blood Cells % 0 %; Platelet Count 402 10^3/cmm (130-400); Red Blood Count 3.48 10^6/uL (4.1-5.3); Red Cell Distribution Width 13.1 % (12.1-15.1); White Blood Count 15.4 10^3/uL (4.0-10.0)
[2020-08-04 06:19] LABS: Anion Gap 10.9 (5-19); Blood Urea Nitrogen 4 mg/dL (8-23); Calcium 8.5 mg/dL (8.5-10.5); Carbon Dioxide 35 mmol/L (22-29); Chloride 99 mmol/L (98-107); Glucose 90 mg/dL (65-115); Osmolality Calculated 290 mOsm/kg (285-295); Sodium 142 mmol/L (136-145)
[2020-08-04 06:28] LABS: Potassium 2.9 mmol/L (3.5-5.1)
[2020-08-04] MEDS: gabapentin 300 mg Capsule PO (08:23)
[2020-08-04] MEDS: venlafaxine ER (24HR) 75 mg Capsule 225 MG PO (08:23)
[2020-08-04] MEDS: famotidine 20 mg Tablet PO (08:24)
[2020-08-04] MEDS: aspirin 81 mg EC Tablet PO (08:24)
[2020-08-04] MEDS: lidocaine 1% 5 ML in potassium chloride premix 100 ML 25 ML IV (08:24)
[2020-08-04] MEDS: tamsulosin 0.4 mg Capsule PO (08:24)
--- NOTE | 2020-08-04 08:32 | XR_ITS ---
WS: [id number] Exam: XR chest 1V portable [id number] Date/Time of Exam: 08/04/2020 8:42 AM Reason For Exam: SOB Comparison 07/30/2016. The lungs are clear. Mild plaque atelectasis in the lingula. No pleural effusions. No pneumothorax. N ormal cardiomediastinal structures and regional bony elements. Surgical clips in the right left neck. Monitoring leads superimpose the chest. XR/XR chest 1V portable [id number] IMPRESSION: 1. No acute cardiopulmonary finding. 2. Mild plaque atelectasis in the lingula.
[2020-08-04] MEDS: budesonide 0.5 mg/2 mL Neb INHALATION (08:43)
[2020-08-04] MEDS: ipratropium-albuterol 3 mL Neb INHALATION (08:43)
--- NOTE | 2020-08-04 10:17 | PM.DCS ---
Discharge Providers Date of Admission: 07/28/20 12:13 Date of Discharge: August 04, 2020 Attending Provider at Admission: Tatiana Pickens MD Attending Provider at Discharge: Naman Suresh MD Primary Care Provider: Miguelito Benson DO Diagnoses at Discharge Discharge Diagnosis (1) Acute renal failure: Status: Resolved Qualifiers: Acute renal failure type: unspecified Qualified Code(s): N17.9 - Acute kidney failure, unspecified (2) Acute hypotension: Status: Resolved (3) Hypoxia: Status: Chronic (4) Rhabdomyolysis: Status: Resolved Reason for Visit Reason for Visit: POSSIBLE INTENTIONAL OVERDOSE Hospital Course Hospital Course 75 year old male diagnosed with 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 No regional metastatic disease idenitfied. The patient's postoperative course was complicated by a possible fistula and replacement of the Dobhoff tube. The tracheostomy was decannulated on postoperative day 6 and he was discharged on May 24, 2020.He is currently undergoing chemotherapy for the last 2 weeks. He presented to the ER today brought by the family because of being extremely lethargic and weak. Generalized failure to thrive over the last several weeks. He was admitted for the management of NALDO on CKD, hypertension, rhabdomyolysis. NALDO was prerenal secondary to volume depletion, secondary to poor oral intake, he was kept on IV hydration, to which he responded, appropriately, nephrotoxic medications were discontinued. At the time of discharge NALDO has resolved. Kidney function was at his baseline. Rhabdomyolysis was also managed with IV hydration, was resolved at discharge, acute hypotension secondary to volume depletion, responded well to IV hydration, antihypertensive medications were kept on hold at the time of discharge, as his blood pressure was on the softer side. During the hospital stay he had a temperature spike 100.1, he was started on vancomycin, as well as cefazolin. Blood cultures were negative, wound culture grew, MRSA, he is being discharged on p.o. Zyvox, 600 mg every 12 hours daily, for another 7 days, repeat blood culture at the time of discharge were negative. Patient responded well to the above medical management and is being discharged in stable condition, currently he is going to [facility]. Imaging studies: CT abdomen without gross signs of infection. CV venous duplex LE BI :No DVT bilateral lower extremities. Physical Exam Const: COMMON NORMALS: patient oriented x3 HENMT: COMMON NORMALS: normocephalic and atraumatic HEAD & SCALP: normocephalic and atraumatic Resp: COMMON NORMALS: clear to auscultation bilaterally AUSCULTATION: clear to auscultation bilaterally Cardio: COMMON NORMALS: regular rate, regular rhythm, S1 normal heart sound present, S2 normal heart sound present, No gallops present (Cardio), No murmurs present (Cardio), No rub (Cardio) and Peripheral pulses 2+ throughout RATE: regular rate RHYTHM: regular rhythm HEART SOUNDS: S1 normal heart sound present and S2 normal heart sound present PERIPHERAL PULSES: Peripheral pulses 2+ throughout GI: COMMON NORMALS: Normal to inspection, nondistended, normoactive bowel sounds present, Soft to palpation, non-tender, No hepatosplenomegaly present and no masses AUSCULTATION: Yes normoactive bowel sounds PALPATION: Yes Soft to palpation and Yes No hepatosplenomegaly present RECTAL EXAM: Yes deferred Extremity: COMMON NORMALS: no clubbing, cyanosis or edema and no pedal edema OTHER: Left forearm plantar aspect with approximately 6x 2 cm lesion at site of graft harvest with exposed tendon, necrotic sloughing at base, no gross surrounding signs of cellulitis Neuro: COMMON NORMALS: patient oriented x3 Urinary Catheter Management^: Caruso: Cath Placed During This Visit: yes, but has since been removed by the nurse Reason for Continuing Indwelling Catheter: Accurate Measurement of Urinary Output in Critically Ill Patients Urinary Catheter Date of Insertion: 07/28/20 Urinary Catheter Time of Insertion: 15:45 Date Urinary Catheter Removed: 07/29/20 Time Urinary Catheter Discontinued: 18:16 Discharge Data Data Completed and Pending: Completed Studies During Hospitalization Category Date Time Status CT abdomen pelvis wo con [id number] Urge nt Cat Scan 07/28/20 12:13 Completed XR chest 1V niki ble [id number] Routine Exams 07/30/20 17:47 Completed XR chest 1V niki ble [id number] Routine Exams 08/04/20 08:32 Completed XR chest 1V niki ble [id number] Urgent Exams 07/28/20 09:42 [place] [id number] Routin e Ultrasound 07/31/20 17:50 Completed Pending at discharge Category Date Time Status Blood Culture Sta t Lab 07/31/20 16:40 Results Vancomycin Trough Timed Lab 08/05/20 07:00 Ordered Labs from last 24 hours 08/04/20 08/04/20 08/03/20 05:13 05:13 13:15 WBC 15.4 H RBC 3.48 L Hgb 10.0 L Hct 31.1 L MCV 89.4 MCH 28.7 MCHC 32.2 RDW 13.1 Plt Count 402 H MPV 10.3 Neut % (Auto) 78.6 Lymph % (Auto) 10.2 Hodgeman % (Auto) 8.6 Eos % (Auto) 1.6 Baso % (Auto) 0.7 Neut # (Auto) 12.06 H Lymph # (Auto) 1.6 Hodgeman # (Auto) 1.3 H Eos # (Auto) 0.2 Baso # (Auto) 0.1 Nucleated RBC % (a uto) 0 Nucleated RBCs # 0.0 Sodium 142 Potassium 2.9 L Chloride 99 Carbon Dioxide 35 H Anion Gap 10.9 BUN 4 L Creatinine 0.8 GFR Calculation Not Reportable Glucose 90 Calculated Osmolal ity 290 Calcium 8.5 Vancomycin Trough 20.9 H Vitals: Last Vital Signs Temp 98.1 F 08/04/20 08:00 Pulse 91 08/04/20 08:49 Resp 18 08/04/20 08:40 BP 136/78 08/04/20 08:00 Pulse Ox 92 08/04/20 08:40 Discharge Plan Discharge Patient Disposition: Home Condition: Stable Prescriptions: New Zyvox 600 mg tablet 600 mg PO BID Qty: 14 RF: 0 Continued atorvastatin 80 mg tablet 40 mg PO BEDTIME RF: 0 buspirone 15 mg tablet 15 mg PO BID RF: 0 cetirizine 10 mg tablet 10 mg PO DAILY PRN (Reason: Allergy Symptoms) RF: 0 cyclobenzaprine 10 mg tablet 10 mg PO BID PRN (Reason: MUSCLE CRAMPS) RF: 0 folic acid 1 mg tablet 1 mg PO DAILY RF: 0 gabapentin 300 mg capsule 300 mg PO TID RF: 0 tamsulosin 0.4 mg capsule 0.4 mg PO BID RF: 0 trazodone 100 mg tablet 50 mg PO BEDTIME RF: 0 cholecalciferol (vitamin D3) 25 mcg (1,000 unit) capsule 25 mcg PO DAILY RF: 0 hydroxyzine HCl 25 mg tablet 25 mg PO BEDTIME PRN (Reason: UNKNOWN) RF: 0 thiamine HCl (vitamin B1) 100 mg tablet 100 mg PO DAILY RF: 0 budesonide-formoterol [Symbicort] 160-4.5 mcg/actuation HFA aerosol inhaler 2 puff INHALATION BID 30 Days Qty: 10.2 RF: 3 Effexor XR 75 mg Capsule,Extended Release 24hr 225 mg PO QAM RF: 0 oxycodone 5 mg/5 mL solution 5 mg PO .EVERY 4-6 HOURS PRN (Reason: Pain) RF: 0 aspirin 81 mg Tablet,Delayed Release (Dr/Ec) 81 mg PO QAM RF: 0 ProAir HFA 90 mcg/actuation Hfa Aerosol Inhaler 2 puff INHALATION QID PRN (Reason: Shortness Of Breath) RF: 0 fluticasone propionate 50 mcg/actuation [place],Suspension 2 spray INTRANASAL DAILY PRN (Reason: Allergy Symptoms) RF: 0 Spiriva Respimat 2.5 mcg/actuation Mist 2 puff INHALATION DAILY RF: 0 Combivent Respimat 20-100 mcg/actuation Mist 1 puff INHALATION QID PRN (Reason: Shortness Of Breath) RF: 0 Held amlodipine 10 mg tablet 5 mg PO DAILY RF: 0 Hold Instructions: Resume on 08/18/20. atenolol 100 mg tablet 50 mg PO BEDTIME RF: 0 Hold Instructions: Resume on 08/18/20. lisinopril 40 mg tablet 20 mg PO QAM RF: 0 Hold Instructions: Resume on 08/18/20. Discharge Orders: Discharge Order (Routine); Ordered 08/04/20 Ordered By: Naamn Suresh Referrals: [facility] [Outside] Miguelito Benson DO [Primary Care Provider] - 08/11/20 8:30 am Discharge Diet: Soft Mechanical Discharge Activity: Increase activity as tolerated Patient Instructions: Linezolid (By mouth), Hypoxia (GEN), Opioid Safety Discharge Attestations Time Spent in Discharge Care*: less than 30 min Specific Discharge Activities: educating patient, educating and/or supporting family/caregiver, discussing with corrections caseworker/social workers/dc planners, documenting/other paperwork and evaluating patient/reviewing data Status at Discharge: Cognitive status at discharge: cognitively intact, Behavioral status at discharge: cooperative, Overall status at discharge: patient is back to baseline Quality Metrics Clinical Quality Measures During this hospital stay, did patient experience: None Coding Level of Care Code Acute Chg FW DC note Diagnoses Acute renal failure N17.9 Acute renal failure type: unspecified Acute hypotension I95.9 Hypoxia R09.02 Rhabdomyolysis M62.82
--- NOTE | 2020-08-04 11:29 | PC.OT ---
OT note: From chart review pt's potassium is 2.9 and he is getting IV potassium. Will hold OT at this time.
--- NOTE | 2020-08-04 11:30 | PC.SOCIAL ---
*IMM UPDATE* Gave patient IMM update. Provided him copy of pg2. Verbalized understanding. 08/04/20 @ 0924 Initialed, dated, timed and placed in chart.
--- NOTE | 2020-08-04 14:45 | PC.NURSE ---
pt report called to [facility] macie ribera
== END 2020-08-04 14:45 | disposition skilled nursing facility (03) | DRG 641 ==
LOC: ER 12:44 → ICU 14:20 → MEDSURG 07-29 18:27
PROVIDERS: Admitting Provider Student in an Organized Health Care Education/Training Program; Emergency Provider Family Medicine; PCP Emergency Medicine Emergency Medical Services; Visit Provider Internal Medicine
DX: E86.0 Dehydration (principal); N17.9 Acute kidney failure, unspecified; M62.82 Rhabdomyolysis; J98.11 Atelectasis; L03.114 Cellulitis of left upper limb; T85.79XA Infection and inflammatory reaction due to other internal prosthetic devices, implants and grafts, initial encounter; C02.9 Malignant neoplasm of tongue, unspecified; Z98.890 Other specified postprocedural states; Z79.899 Other long term (current) drug therapy; N40.0 Benign prostatic hyperplasia without lower urinary tract symptoms; J44.9 Chronic obstructive pulmonary disease, unspecified; F41.8 Other specified anxiety disorders; E11.22 Type 2 diabetes mellitus with diabetic chronic kidney disease; I12.9 Hypertensive chronic kidney disease with stage 1 through stage 4 chronic kidney disease, or unspecified chronic kidney disease; N18.9 Chronic kidney disease, unspecified; E78.5 Hyperlipidemia, unspecified; M54.5 Low back pain; G47.33 Obstructive sleep apnea (adult) (pediatric); E11.51 Type 2 diabetes mellitus with diabetic peripheral angiopathy without gangrene; F17.210 Nicotine dependence, cigarettes, uncomplicated; I95.9 Hypotension, unspecified; E86.1 Hypovolemia; R29.6 Repeated falls; Z79.51 Long term (current) use of inhaled steroids; Z79.82 Long term (current) use of aspirin; Z79.891 Long term (current) use of opiate analgesic; B95.62 Methicillin resistant Staphylococcus aureus infection as the cause of diseases classified elsewhere; E87.6 Hypokalemia; Y83.8 Other surgical procedures as the cause of abnormal reaction of the patient, or of later complication, without mention of misadventure at the time of the procedure
CPT/HCPCS: 36415; 36416; 36600; 51701; 51702; 71045; 74176; 80048; 80053; 80202; 80306; 80307; 81001; 82436; 82550; 82570; 82805; 82962; 83605; 83880; 84133; 84145; 84300; 84443; 84484; 85025; 85378; 87040; 87070; 87077; 87186; 87426; 92523; 92610; 93005; 93970; 94640; 94660; 96361; 96372; 96374; 97110; 97116; 97161; 97167; 97530; 97535; 99285; J0690; J1650; J1940; J2310; J3370; J3480; J7030; J7040; J7050; J7626

== ENCOUNTER 2020-09-03 05:41 | Outpatient (RCR) | payer OTHER, MEDICARE, SELFPAY ==
--- NOTE | 2020-08-09 11:02 | ONCRAD TMN_ITS ---
Radiation Oncology Treatment Management Note Patient Name: Asif Sky Date of : 1945 Date of Service: 08/09/2020 Attending Physician: Dave Rico M.D. Asif Sky is a 75 year old white male diagnosed with a pathological stage JORGE (T4aN0) moderately differentiated invasive squamous cell carcinoma (T4a is on account of the tumor measuring > 4 cm with a depth of invasion > 1 cm) of the oral tongue. A right partial glossectomy with bilateral neck dissection with a radial forearm free flap reconstruction and thigh split thickness skin graft including a temporary tracheostomy was performed on May 14, 2020. The patient has received 20 Gy of a prescribed 66 [place] with an intensity modulated radiotherapy plan utilizing a step and shoot treatment technique. Upon review of systems, he described odynophagia. On physical examination, the patient weighed 158 lbs. His temperature was 98 ???F with a blood pressure of 116/62 mmHg. His pulse was 81 bpm and the respiratory rate was 22. There was no erythema within the treatment stanton of the neck. Continue post-operative head and neck radiotherapy as prescribed. Signed by: Dr. Dave Rico 08/09/2020 11:01:18 AM
--- NOTE | 2020-08-16 08:56 | ONCRAD TMN_ITS ---
Radiation Oncology Treatment Management Note Patient Name: Asif Sky Date of : 1945 Date of Service: 08/16/2020 Attending Physician: Dave Rico M.D. Asif Sky is a 75 year old white male diagnosed with a pathological stage JORGE (T4aN0) moderately differentiated invasive squamous cell carcinoma (T4a is on account of the tumor measuring > 4 cm with a depth of invasion > 1 cm) of the oral tongue. A right partial glossectomy with bilateral neck dissection with a radial forearm free flap reconstruction and thigh split thickness skin graft including a temporary tracheostomy was performed on May 14, 2020. The patient has received 30 Gy of a prescribed 66 [place] with an intensity modulated radiotherapy plan utilizing a step and shoot treatment technique. Upon review of systems, he described xerostomia. On physical examination, the patient weighed 155 lbs. His temperature was 97.2???F with a blood pressure of 134/77 mmHg. His pulse was 84 bpm and the respiratory rate was 20. There was no erythema within the treatment stanton of the neck. Continue post-operative head and neck radiotherapy as planned. Signed by: Dr. Dave Rico 08/16/2020 8:54:56 AM
--- NOTE | 2020-08-23 09:35 | ONCRAD TMN_ITS ---
Radiation Oncology Treatment Management Note Patient Name: Asif Sky Date of : 1945 Date of Service: 08/23/2020 Attending Physician: Dave Rico M.D. Asif Sky is a 75 year old white male diagnosed with a pathological stage JORGE (T4aN0) moderately differentiated invasive squamous cell carcinoma (T4a is on account of the tumor measuring > 4 cm with a depth of invasion > 1 cm) of the oral tongue. A right partial glossectomy with bilateral neck dissection with a radial forearm free flap reconstruction and thigh split thickness skin graft including a temporary tracheostomy was performed on May 14, 2020. The patient has received 40 Gy of a prescribed 66 [place] with an intensity modulated radiotherapy plan utilizing a step and shoot treatment technique. Upon review of systems, he described xerostomia. On physical examination, the patient weighed 152 lbs. His temperature was 97.3???F with a blood pressure of 90/55 mmHg. His pulse was 58 bpm and the respiratory rate was 20. There was no erythema within the treatment stanton of the neck. Continue post-operative head and neck radiotherapy as prescribed. Signed by: Dr. Dave Rico 08/23/2020 9:33:59 AM
--- NOTE | 2020-08-30 09:20 | ONCRAD TMN_ITS ---
Radiation Oncology Weekly Treatment Management Patient: Jose Daniel Jones MR#: [id number] : 1945> Attending Physician: Dr. Ron Irizarry Date of Service: 08/30/2020 Referring Physician(s) : Tristen Goel M.D. 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 ID: [id number], Energy: 6X, Dose/Fx (cGy): 200, #Fx: 25 / 33, Dose Correction (cGy): 0, Total Dose (cGy): 5,000, Start Date: 07/15/2020, Elapsed Days: 46 Reason for visit: The patient is being seen today as part of their regularly scheduled weekly on treatment visits to assess for acute toxicities from radiotherapy. Review of Systems: He has ongoing burning oral cavity pain. OC tablets used at HI but not effective. On regular diet which is too ???crunchy??? Hates Ensure or Boost as they cause diarrhea. Not gargling with salt and soda. Has some oral ???pink stuff ??? offered which is not effective either. Not interested in PEG tube. Smoking 2 cigs a day. Now in permanently in a HI which he does like. Vital Signs: Performed on 08/30/2020 8:47 AM BMI - 22.847 kg/m2, Height - 67.00 in, Weight - 145.8 lbs, Temperature - 96.8 f, Pulse - 62, Respiration - 22, O2 Sat - 95 % (low), Pain - 6 and BP - 88/ 54 mm(hg)(low). Physical Exam: Very dry mouth with mucousitis over right tongue and palate. No candidiasis seen. Imaging: Radiation therapy imaging related to accurate target localization (i.e. KV, MV and CBCT) was reviewed. Appropriate changes, if any, were made to ensure treatment accuracy. Plan: Add salt and soda gargles. Add triple mix if not already in the ???pin stuff that he is offered in the past. Add Biotene as oral moisturizer. Switch to soft mechanical diet. Increase range of oral OC for pain control. Stop smoking. See again later in the week for interval improvement. Continue treatment for now. Signed by: Dr. Ron Irizarry 08/30/2020 9:18:33 AM
== END 2020-09-06 23:59 | disposition home or self-care (01) ==
LOC: ONCMED 05:41
PROVIDERS: PCP Emergency Medicine Emergency Medical Services; Visit Provider Radiology Radiation Oncology
DX: Z51.0 Encounter for antineoplastic radiation therapy (principal); C02.0 Malignant neoplasm of dorsal surface of tongue; Z79.899 Other long term (current) drug therapy
CPT/HCPCS: 77336; 77386

== ENCOUNTER 2020-09-10 05:40 | Outpatient (RCR) | payer OTHER, MEDICARE, SELFPAY ==
--- NOTE | 2020-09-07 09:05 | ONCRAD TMN_ITS ---
Radiation Oncology Treatment Management Note Patient Name: Asif Sky Date of : 1945 Date of Service: 09/07/2020 Attending Physician: Dave Rico M.D. Asif Sky is a 75 year old white male diagnosed with a pathological stage JORGE (T4aN0) moderately differentiated invasive squamous cell carcinoma (T4a is on account of the tumor measuring > 4 cm with a depth of invasion > 1 cm) of the oral tongue. A right partial glossectomy with bilateral neck dissection with a radial forearm free flap reconstruction and thigh split thickness skin graft including a temporary tracheostomy was performed on May 14, 2020. The patient has received 60 Gy of a prescribed 66 [place] with an intensity modulated radiotherapy plan utilizing a step and shoot treatment technique. Upon review of systems, he described xerostomia. On physical examination, the patient weighed 149 lbs. His temperature was 96.4???F with a blood pressure of 93/54 mmHg. His pulse was 79 bpm and the respiratory rate was 20. There was no erythema within the treatment stanton of the neck. Continue post-operative head and neck radiotherapy as planned. Signed by: Dr. Dave Rico 09/07/2020 9:04:38 AM
== END 2020-10-06 23:59 | disposition home or self-care (01) ==
LOC: ONCMED 05:40
PROVIDERS: PCP Emergency Medicine Emergency Medical Services; Visit Provider Radiology Radiation Oncology
DX: Z51.0 Encounter for antineoplastic radiation therapy (principal); C02.0 Malignant neoplasm of dorsal surface of tongue; Z79.899 Other long term (current) drug therapy
CPT/HCPCS: 77336; 77386

== ENCOUNTER 2020-10-08 07:03 | Outpatient (RCR) | payer OTHER, MEDICARE, SELFPAY ==
--- NOTE | 2020-10-08 08:55 | ONCRAD EPV_ITS ---
Radiation Oncology Follow-Up Note Patient Name: Asif Sky Date of : 1945 Date of Service: 10/08/2020 Attending Physician: Dave Rico M.D. Asif Sky returned for a routinely scheduled follow-up appointment. He received postoperative head and neck radiotherapy for the management of a pathological stage JORGE (T4aN0) moderately differentiated invasive squamous cell carcinoma (T4a is on account of the tumor measuring > 4 cm with a depth of invasion > 1 cm) of the oral tongue. A right partial glossectomy with bilateral neck dissection with a radial forearm free flap reconstruction and thigh split thickness skin graft including a temporary tracheostomy was performed on May 14, 2020. Head and neck radiation therapy was delivered between the dates of July 15, 2020 through September 10, 2020. A prescribed dose of 66 Gy was delivered in 33 fractions encompassing 58 elapsed days. On review of systems, he described xerostomia. On physical examination, He weighed 152 lbs. The temperature was 97.7???F with a blood pressure of 114/72 mmHg. The pulse was 83 bpm and the respiratory rate was 20 breaths per minute. Examination of the oral cavity failed to identify palpable or visible abnormalities. The right tongue graft was pink with subtle areas of pallor. I did not palpate any induration or nodules. I did not identify any cervical lymphadenopathy. In summary, Mr. Sky returned for a post-radiotherapy appointment. He has no significant sequelae from treatment. He will continue follow-up as scheduled with his planning specialist. Signed by: Dr. Dave Rico 10/08/2020 8:53:21 AM
== END 2020-11-06 23:59 | disposition home or self-care (01) ==
LOC: ONCMED 07:03
PROVIDERS: PCP Emergency Medicine Emergency Medical Services; Visit Provider Radiology Radiation Oncology
DX: Z08 Encounter for follow-up examination after completed treatment for malignant neoplasm (principal); Z85.810 Personal history of malignant neoplasm of tongue; K11.7 Disturbances of salivary secretion; Z79.899 Other long term (current) drug therapy; Z92.3 Personal history of irradiation
CPT/HCPCS: 99024

== ENCOUNTER 2020-11-10 09:37 | Outpatient (CLI) | payer OTHER, MEDICARE, SELFPAY ==
--- NOTE | 2020-11-10 09:56 | CT_ITS ---
WS: [id number] CT NECK TECHNIQUE: Contrast-enhanced CT of the neck with coronal and sagittal reformatted images. CLINICAL INFORMATION: MALIGNANT NEOPLASM OF OVERLAPPING SITES OF TONGUE COMPARISON: CT April 06, 2020 and PET/CT April 20, 2020 DLP: 1350.[address] scans at [facility] use at least one of these dose optimization techniques: automat ed exposure control; mA and/or kV adjustment per patient size (includes targeted exams where dose is matched to clinical indication); or iterative reconstruction. FINDINGS: Postoperative changes partial hemiglossectomy for right tongue base neoplasm resection. Res ection of the submandibular glands bilaterally. Surgical clips in the right base of tongue and subman dibular space. Moderate diffuse edema involving the epiglottis and aryepiglottic folds. Partial effac ement of the left piriform sinus. Edema in the parapharyngeal soft tissues. No evidence of critical a irway stenosis. No supraglottic or glottic mass. Findings are compatible with treatment-related paris es. Subglottic airway is patent. Normal parapharyngeal fat. No cervical lymphadenopathy. Tiny low-attenua tion nodule anterior right thyroid measuring 3 mm. Aortic calcification. Lung apices are well aerated. Moderate spondylitic changes cervical spine. Smal l disc osteophyte complex C3-C4 with mild central canal stenosis and slight contact of the cervical c ord. Tiny chronic lacunar infarcts right cerebellum and right monteiro radiata. Moderate small vessel change s partially visualized. Opacification left maxillary sinus. CT/CT neck w con* [id number] IMPRESSION: 1. Prior postoperative changes hemiglossectomy with flap reconstruction. 2. No evidence of recurrent supraglottic or glottic mass. Postoperative change s right tongue base and submandibular spaces. 3. Resection of the submandibular glands bilaterally. 4. Diffuse circumferential edema involving the posterior oropharynx, hypophary nx, and epiglottis extending into the aryepiglottic folds. No critical airway s tenosis. Findings likely due to treatment-related changes. 5. No cervical lymphadenopathy. 6. Opacification left maxillary sinus. Mastoid air cells are well aerated.
[2020-11-10 10:22] LABS: Blood Urea Nitrogen 30 mg/dL (8-23)
[2020-11-10] MEDS: iodixanol 320 mg/mL 100mL Btl IV (10:30)
== END 2020-11-10 09:38 | disposition home or self-care (01) ==
PROVIDERS: PCP Emergency Medicine Emergency Medical Services; Visit Provider Specialist
DX: C02.8 Malignant neoplasm of overlapping sites of tongue (principal); R60.0 Localized edema; Q38.3 Other congenital malformations of tongue
CPT/HCPCS: 70491; 82565; 84520; Q9967

== ENCOUNTER 2021-02-21 09:28 | Outpatient (CLI) | payer OTHER, MEDICARE, SELFPAY ==
--- NOTE | 2021-02-21 09:32 | MR_ITS ---
WS: [id number] MRI NECK WITH CONTRAST TECHNIQUE: Noncontrast axial T1, axial T2 FSE fat sat, coronal T2 fat sat, coronal T1, coronal T1 fat sat, sagittal T2 fat sat, plus contrast enhanced coronal, sagittal, and axial T1 fat sat images obta ined. Patient returned for additional imaging due to motion artifact on the prior attempt CLINICAL INFORMATION: MALIGNANT NEOPLASM OF OVERLAPPING SITES OF TONGUE COMPARISON: CT neck November 10, [address] April 20, [address] April 06, 2020 FINDINGS: Prior postoperative changes partial glossectomy right tongue base neoplasm resection. Submandibular g lands have been resected bilaterally. Susceptibility artifact with surgical clips at the base of the tongue on the right and submandibular space. Edema in the tongue base and submandibular tissues likel y treatment-related and postoperative changes. No supraglottic or glottic mass. Diffuse circumferenti al thickening involving the oropharynx, hypopharynx, and supraglottic larynx extending into the epigl ottis compatible with treatment-related changes. No focal enhancing mass or suspicious lesion. Findin gs are similar to the prior CT. Subglottic airway is patent. No cervical lymphadenopathy. Opacification left maxillary sinus. Mastoid air cells and paranasal sinuses are otherwise well aerated. Partially visualized intracranial conten ts demonstrate small vessel changes with chronic lacunar infarcts in the basal ganglia and right thal amus. Chronic lacunar infarct right cerebellum. MR/MR orbit face neck wo/w* [id number] IMPRESSION: 1. No evidence of recurrent progressive disease. 2. Prior postoperative changes hemiglossectomy and flap reconstruction. 3. No evidence of recurrent supraglottic or glottic mass. Subglottic airway is patent. 4. Prior postoperative changes right tongue base and submandibular space. 5. Submandibular glands have been resected bilaterally. 6. Circumferential soft tissue thickening and edema involving the oropharynx, hypopharynx extending into the epiglottis consistent with treatment-related estuardo nges. This is similar to the prior examination. 7. No cervical lymphadenopathy.
[2021-02-21] MEDS: gadobenate dimeglumine 20 mL vial IV (10:33)
== END 2021-02-21 09:29 | disposition home or self-care (01) ==
PROVIDERS: PCP Emergency Medicine Emergency Medical Services; Visit Provider Specialist
DX: C02.8 Malignant neoplasm of overlapping sites of tongue (principal)
CPT/HCPCS: 70543; A9577

== ENCOUNTER → 2022-03-13 10:26 | Outpatient (BNVA) | payer OTHER, SELFPAY | PROVIDERS: PCP Emergency Medicine Emergency Medical Services; Visit Provider Internal Medicine Cardiovascular Disease | DX: Z01.810 Encounter for preprocedural cardiovascular examination (principal); R06.02 Shortness of breath; I25.10 Atherosclerotic heart disease of native coronary artery without angina pectoris; I10 Essential (primary) hypertension; F17.200 Nicotine dependence, unspecified, uncomplicated; I44.0 Atrioventricular block, first degree; I49.1 Atrial premature depolarization; I49.3 Ventricular premature depolarization; Z95.5 Presence of coronary angioplasty implant and graft; F17.210 Nicotine dependence, cigarettes, uncomplicated; R94.31 Abnormal electrocardiogram [ECG] [EKG] | CPT/HCPCS: 93005; 99204 ==

== ENCOUNTER 2022-04-05 08:47 | Outpatient (CLI) | payer OTHER, SELFPAY ==
--- NOTE | 2022-04-05 09:11 | ECG_ITS ---
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 Measurements Intervals [place] Rate: 78 P: 57 [place]: 211 QRS: 3 QRSD: 106 T: 81 QT: 348 QTc: 397 Interpretive Statements SINUS RHYTHM WITH FIRST DEGREE AV BLOCK WITH FREQUENT VENTRICULAR PREMATURE COMPLEXES ST DEVIATION AND MODERATE T-WAVE ABNORMALITY, CONSIDER LATERAL ISCHEMIA [-0.1+ mV T-WAVE IN I/aVL/V5/V6] INTERPRETATION BASED ON A DEFAULT AGE OF 40 YEARS Compared to ECG 07/28/2020 18:12:04 T-wave abnormality now present Possible ischemia now present Myocardial infarct finding no longer present Electronically Signed On 04-05-2022 16:53:10 WIRE WHEELER by Hayley Costa M.D. [id number]
[2022-04-05 09:26] LABS: Basophils # 0.1 10^3/uL (0.0-0.1); Basophils % 1.1 %; Eosinophils # 0.3 10^3/uL (0.0-0.8); Eosinophils % 2.2 %; Hematocrit 47.5 % (42.0-52.0); Hemoglobin 15.8 g/dL (11.7-16.6); Lymphocytes # 2.1 10^3/uL (0.8-4.8); Lymphocytes % 18.3 %; Mean Corpuscular HGB Conc 33.3 g/dL (30.0-36.0); Mean Corpuscular Hemoglobin 28.8 pg (28.0-34.0); Mean Corpuscular Volume 86.7 fl (80-94); Mean Platelet Volume 9.9 fL (7.4-10.4); Monocytes # 1.2 10^3/uL (0.2-0.9); Monocytes % 10.8 %; Neutrophils # 7.61 10^3/uL (1.8-7.7); Neutrophils % 67.2 %; Nucleated Red Blood Cells % 0 %; Platelet Count 231 10^3/cmm (130-400); Red Blood Count 5.48 10^6/uL (4.1-5.3); Red Cell Distribution Width 13.6 % (12.1-15.1); White Blood Count 11.3 10^3/uL (4.0-10.0)
[2022-04-05 09:40] LABS: Estmated Average Glucose 148; Hemoglobin A1C 6.8 % (4.0-6.0)
== END 2022-04-05 08:48 | disposition home or self-care (01) ==
LOC: RAD 08:55
PROVIDERS: PCP Emergency Medicine Emergency Medical Services; Visit Provider Specialist
DX: Z01.810 Encounter for preprocedural cardiovascular examination (principal); C02.8 Malignant neoplasm of overlapping sites of tongue; J37.0 Chronic laryngitis; R49.0 Dysphonia; R13.10 Dysphagia, unspecified; J38.3 Other diseases of vocal cords; I44.0 Atrioventricular block, first degree; R94.31 Abnormal electrocardiogram [ECG] [EKG]
CPT/HCPCS: 36415; 83036; 85025; 93005

== ENCOUNTER 2022-04-14 11:41 | Outpatient (CLI) | payer OTHER, SELFPAY ==
--- NOTE | 2022-04-14 12:00 | USCV_ITS ---
Asif Sky Age: 76 Gender: M : 1945 Exam Date: 04/14/2022 12:06 Ordering Phys: Hayley Costa MD ([email or web address]) Technologist: Exam Location: [facility] [place] [facility] [place] Indication: s/p CABG, CHF, SOB BP: 160 / 85 HR: 67 Rhythm: Sinus Technical Quality: Adequate MEASUREMENTS (Male / Female) Normal Values 2D ECHO LV Diastolic Diameter PLAX 4.6 cm 4.2 - 5.9 / 3.9 - 5.3 cm LV Systolic Diameter PLAX 3.4 cm IVS Diastolic Thickness 0.8 cm 0.6 - 1.0 / 0.6 - 0.9 cm IVS Systolic Thickness 1.5 cm LVPW Diastolic Thickness 1.1 cm 0.6 - 1.0 / 0.6 - 0.9 cm LVPW Systolic Thickness 1.4 cm LVOT Diameter 2.0 cm LV Ejection Fraction 2D Teich 50.8 % LV Ejection Fraction MOD 2C 42.7 % LV Ejection Fraction 2C AL 40.4 % LA Diameter 3.8 cm IVC Diameter 1.3 cm M-MODE Aortic Annulus Diameter 3.7 cm LA Ao Ratio MM 1.2 MV E Point Septal Separation 1.2 cm DOPPLER AV Peak Velocity 167.0 cm/s LVOT Peak Velocity 99.0 cm/s AV Area Cont Eq vti 1.4 cm squared AV Area Cont Eq pk 1.9 cm squared MV Area PHT 5.0 cm squared Mitral E to A Ratio 1.0 MV E' Velocity 54.0 cm/s Mitral E to MV E' Ratio 6.2 Mitral E to LV E' Lateral Ratio 6.5 Mitral E to LV E' Septal Ratio 6.0 TR Peak Velocity 190.0 cm/s TR Peak Gradient 14.4 mmHg TV Peak E Velocity 87.0 cm/s Right Atrial Pressure 3.0 mmHg Pulmonary Artery Systolic Pressu 17.4 mmHg FINDINGS Left Ventricle Normal left ventricular cavity size. Mildly decreased left ventricular systolic function. Left ventricular ejection fraction is estimated at 45-50 %. Global left ventricular hypokinesis. Grade I diastolic dysfunction (abnormal relaxation filling pattern), normal to mildly elevated filling pressures. Abnormal septal motion. Right Ventricle Normal right ventricular size and systolic function. RVSP could not be calculated due to incomplete tricuspid regurgitation velocity profile. Right Atrium Normal right atrial size. Left Atrium Mildly increased left atrial size. Mitral Valve Structurally normal mitral valve. No mitral valve stenosis. Trace mitral valve regurgitation. Aortic Valve Structurally normal trileaflet aortic valve. No aortic valve stenosis. No aortic valve regurgitation. Tricuspid Valve Structurally normal tricuspid valve. Trace tricuspid valve regurgitation. Pulmonic Valve Structurally normal pulmonic valve. Pericardium No pericardial effusion. Prominent epicardial fat. Aorta Normal size aortic root and proximal ascending aorta. IVC Normal sized inferior vena cava. CONCLUSIONS 1. Normal left ventricular cavity size. Mildly decreased left ventricular systolic function. Left ventricular ejection fraction is estimated at 45-50 %. Global left ventricular hypokinesis. Grade I diastolic dysfunction (abnormal relaxation filling pattern), normal to mildly elevated filling pressures. Abnormal septal motion. 2. Normal right ventricular size and systolic function. 3. No prior similar studies to compare. Hayley Costa MD (Electronically Signed) Final Date: 19 April 2022 20:57 S
== END 2022-04-14 11:42 | disposition home or self-care (01) ==
PROVIDERS: PCP Emergency Medicine Emergency Medical Services; Visit Provider Internal Medicine Cardiovascular Disease
DX: R06.02 Shortness of breath (principal); I50.9 Heart failure, unspecified; Z95.1 Presence of aortocoronary bypass graft
CPT/HCPCS: 93306

== ENCOUNTER 2023-12-24 08:55 | Outpatient (CLI) | payer OTHER, SELFPAY ==
--- NOTE | 2023-12-24 09:09 | CT_ITS ---
WS: [id number] CT CHEST, ABDOMEN AND PELVIS WITH AND WITHOUT CONTRAST HISTORY: CARCINOMA, history of tongue cancer. TECHNIQUE: Contiguous 5 mm axial imaging performed through the chest, abdomen and pelvis with and wit hout IV contrast, oral contrast has been provided. Coronal and sagittal reformats chest. Coronal and sagittal reformats through the abdomen and pelvis. All CT scans at [facility] use at least on e of these dose optimization techniques: automated exposure control; mA and/or kV adjustment per rishi ent size (includes targeted exams where dose is matched to clinical indication); or iterative reconst ruction. CONTRAST: Omnipaque 350; 100 mL IV. DLP: 1358.91 mGy.cm COMPARISON: 07/28/2020, 09/02/[address]: Hyperinflated lungs. No pulmonary mass or nodule. Mild scarring at the lingula. Moderate at herosclerosis thoracic aorta with no aneurysm. Normal appearance of the pulmonary artery. Heart is no rmal size. Coronary artery calcifications are at least moderate. No mediastinal or hilar adenopathy. Lower neck is negative. No axillary adenopathy or enlargement. There is very mild bronchial wall thic kening in the RIGHT lower lobe. Small hiatal hernia. Abdomen CT: No metastatic disease in the liver. Normal gallbladder. Normal portal vein. Normal spleen and adrenal glands. Mild pancreatic atrophy. No duct dilatation. Very mild perinephric stranding sonia und each kidney. Abdominal aorta: Mild aneurysmal dilatation with the largest diameter 3.8 cm. Bilobed aneurysm. There is additional aneurysmal dilatation at the bifurcation with a maximum diameter of 3.3 cm. Extensive calcification surrounding the aorta. The aorta has increased in size since 07/28/2020. Mild atheroscle rosis involving the celiac axis and SMA. No thrombus is identified. There is mild wall thickening of the anterior abdominal aorta just below the level of the renal arteries which has not been present in the past. No acute blood products at this time. Normally distended stomach. No small bowel obstruction. Moderate constipation with increased air thro ughout the colon. Normal appendix. Small ventral, fat-containing abdominal wall hernia. No ascites or adenopathy. Pelvic CT: No free fluid or adenopathy. Heavy calcification continues through the iliac arteries with areas of stenosis. Near complete if not complete occlusion involving the LEFT external iliac artery with reconstitution. Urinary bladder is well distended. Focal mural thickening and enhancement of the posterior RIGHT late ral urinary bladder measures 9 mm. Additional nodularity of the urinary bladder towards the LEFT apex . This additional nodule measures 16 mm. Suspicious for uroepithelial lesion. Grade 1 anterolisthesis of L4. Bilateral L4 pars defects. No destructive bone lesions. CT/CT [facility] wo/w [id number] IMPRESSION: 1. No metastatic disease in the thorax. No adenopathy. No pulmonary nodules. 2. Moderate atherosclerosis thoracic aorta. 3. No metastatic disease identified within the abdomen or pelvis. 4. Multifocal abdominal aortic aneurysm has increased in size since 07/28/2020. Aneurysmal dilatation is the largest below the level of the renal arteries at 3.8 cm. Maximum diameter 2020 of 2.9 cm. There is mild asymmetric wall thicken ing which may be related to aortitis or prior aortic injury. Additional aneurys m at the bifurcation 3.3 cm. Recommend evaluation by cardiovascular surgery. 5. Extensive heavy calcification in the iliac arteries with multifocal areas o f stenoses. Highly suspicious for complete occlusion with distal reconstitution in the LEFT external iliac artery. 6. Focal 9 mm enhancement in the posterior RIGHT urinary bladder suspicious fo r uroepithelial neoplasm. Additional enhancing lobulated mural nodule measuring 16 mm towards the LEFT apex suspicious for uroepithelial neoplasm. Recommend f ollow-up by urology. 7. No ascites.
[2023-12-24] MEDS: iohexol 350 mg/mL 500 mL Btl (per mL) IV (11:20)
[2023-12-24] MEDS: iohexol 350 mg/mL 500 mL Btl (per mL) PO (11:21)
== END 2023-12-24 08:56 | disposition home or self-care (01) ==
LOC: RAD 08:56
PROVIDERS: PCP Emergency Medicine Emergency Medical Services; Visit Provider Nurse Practitioner Family
DX: I71.40 Abdominal aortic aneurysm, without rupture, unspecified (principal); I70.8 Atherosclerosis of other arteries; I70.0 Atherosclerosis of aorta; I25.84 Coronary atherosclerosis due to calcified coronary lesion; K44.9 Diaphragmatic hernia without obstruction or gangrene; K59.00 Constipation, unspecified; K43.9 Ventral hernia without obstruction or gangrene; R93.41 Abnormal radiologic findings on diagnostic imaging of renal pelvis, ureter, or bladder; M43.16 Spondylolisthesis, lumbar region
CPT/HCPCS: 71260; 74178; 82565; 84520

== ENCOUNTER 2024-01-25 14:03 | Outpatient (CLI) | payer OTHER, SELFPAY ==
--- NOTE | 2024-01-25 14:09 | CT_ITS ---
WS: [id number] CT chest wo/w con [id number] HISTORY: History of tongue cancer. TECHNIQUE: Axial imaging performed through the thorax. Coronal and sagittal reformats are submitted. All CT scans at [facility] use at least one of these dose optimization techniques: automated exposure control; mA and/or kV adjustment per patient size (includes targeted exams where dose is mat ched to clinical indication); or iterative reconstruction. CONTRAST: Omnipaque 350; 100 mL IV. DLP: 626.26 mGy.cm COMPARISON: 12/24/2023, 09/02/2019 Lungs and central airway: Pulmonary hyperexpansion. Mild centrilobular emphysema. New spiculated cons olidation measuring 1.7 x 2.0 cm at the RIGHT lung base was not present on the study of 12/24/2023. No additional mass. Pleura: Normal. No pleural effusion. Heart and pericardium: Mild LEFT heart enlargement. No pericardial effusion. Mediastinum and tammy: No mediastinum or hilar adenopathy. Vessels: Mild atherosclerosis aorta. Normal size pulmonary artery. Chest wall and lower neck: No soft tissue masses. Upper abdomen: Small hiatal hernia. Stomach is distended with food products. Osseous structures: No destructive process. CT/CT chest wo/w con [id number] IMPRESSION: 1. New spiculated consolidation at the RIGHT lung base since 12/24/2023. Due to the rapid onset this is probably pneumonia. Recommend CT evaluation in 6 to 8 weeks after treatment. 2. No additional mass or nodule. 3. Atherosclerosis aorta. No adenopathy.
== END 2024-01-25 14:04 | disposition home or self-care (01) ==
LOC: RAD 14:04
PROVIDERS: Visit Provider Nurse Practitioner Family
DX: R91.8 Other nonspecific abnormal finding of lung field (principal); I70.0 Atherosclerosis of aorta
CPT/HCPCS: 71270; Q9967

== ENCOUNTER 2024-01-30 10:00 | Outpatient (CLI) | payer OTHER, SELFPAY ==
--- NOTE | 2024-01-30 10:57 | CT_ITS ---
WS: [id number] CT NECK TECHNIQUE: Contrast-enhanced CT of the neck with coronal and sagittal reformatted images. 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 FINDINGS: Prior postoperative changes partially hemiglossectomy for RIGHT tongue base neoplasm resection. Surgi stevenson clips in the RIGHT base of the tongue and submandibular space. Resection of the submandibular gla nds bilaterally. No evidence of supraglottic or glottic mass. Normal posterior nasopharynx and paraph aryngeal fat. Normal vallecula. Mild narrowing of the glottis with mild edema likely due to treatment -related changes. Mild edema involving the epiglottis improved compared to previous. Effacement of th e LEFT vallecula unchanged. No evidence of focal enhancing mass or lesion. Subglottic airway is paten t. Inspissated secretions in the LEFT maxillary sinus extending to the infundibulum unchanged. Subglotti c airway is patent. Normal parapharyngeal fat. No cervical lymphadenopathy. Tiny low- attenuation thy roid nodules. Aortic calcification. Lung apices are well aerated. CT/CT neck w con* [id number] IMPRESSION: 1. Prior postoperative changes hemiglossectomy with flap reconstruction. 2. No evidence of recurrent supraglottic or glottic mass. Postoperative change s tongue base are stable. 3. Stable resection of the submandibular glands bilaterally. 4. Mild edema involving the supraglottic and glottic larynx due to treatment r elated changes although improved compared to previous. 5. No cervical lymphadenopathy. 6. Chronic opacification LEFT maxillary sinus.
[2024-01-30 11:33] LABS: Blood Urea Nitrogen 9 mg/dL (8-23)
[2024-01-30] MEDS: iohexol 350 mg/mL 500 mL Btl (per mL) IV (11:44)
== END 2024-01-30 10:53 | disposition home or self-care (01) ==
PROVIDERS: Visit Provider Specialist
DX: C02.8 Malignant neoplasm of overlapping sites of tongue (principal); D37.02 Neoplasm of uncertain behavior of tongue; Z98.890 Other specified postprocedural states; J32.0 Chronic maxillary sinusitis
CPT/HCPCS: 70491; 82565; 84520

== ENCOUNTER 2024-02-22 08:00 | Outpatient (CLI) | payer OTHER, SELFPAY ==
--- NOTE | 2024-02-22 08:03 | FL_ITS ---
WS: [email or web address] Barium swallow and esophagram, 02/22/2024 Clinical Data: CHRONIC LARYNGITIS/SINUSITIS/DYSPHONIA Comparison: None. Fluoroscopy time: 2min [id number] # of spot films: 7 Findings: The patient swallowed the thick and thin barium. There was premature spillage and the patient exhibit ed poor oral cavity control. The barium flowed through the hypopharynx without hesitation. There was penetration and slight aspiration. There were clips in the right side of the neck from previous neck surgery. No stricture, mass, polyp or erosion was seen. The barium entered the esophagus and there was normal motility with occasional tertiary contractions. No reflux, stricture, polyp, mass, erosion or ulcer was noted. There was a small hiatal hernia with no significant reflux. Barium passed normally into the stomach. FL/FL barium swallow [id number] Impression: 1. Premature spillage from the oral cavity into the hypopharynx. 2. Penetration and slight aspiration during swallowing. 3. Small sliding hiatal hernia with occasional tertiary contractions.
== END 2024-02-22 08:01 | disposition home or self-care (01) ==
LOC: RAD 08:01
PROVIDERS: Visit Provider Specialist
DX: J37.0 Chronic laryngitis (principal); J32.9 Chronic sinusitis, unspecified; T81.30XD Disruption of wound, unspecified, subsequent encounter; R49.0 Dysphonia; C02.8 Malignant neoplasm of overlapping sites of tongue; D37.02 Neoplasm of uncertain behavior of tongue; R93.3 Abnormal findings on diagnostic imaging of other parts of digestive tract
CPT/HCPCS: 74220

== ENCOUNTER → 2024-03-05 16:24 | Outpatient (BNVA) | payer OTHER, SELFPAY | PROVIDERS: Visit Provider Internal Medicine Cardiovascular Disease | DX: I73.9 Peripheral vascular disease, unspecified (principal); R07.9 Chest pain, unspecified; I44.0 Atrioventricular block, first degree | CPT/HCPCS: 93005; 99215 ==

== ENCOUNTER 2024-03-12 11:46 | Outpatient (CLI) | payer OTHER, SELFPAY ==
--- NOTE | 2024-03-12 12:13 | CT_ITS ---
WS: [email or web address] CT chest wo con [id number] REASON FOR EXAM: F/U FROM PREVIOUS CT FOR PNEUMONIA IV CONTRAST ADMINISTERED: Noncontrast TOTAL EXAM DLP: 319.[address] scans at [facility] use at least one of these dose optimization techniques: automat ed exposure control; mA and/or kV adjustment per patient size (includes targeted exams where dose is matched to clinical indication); or iterative reconstruction. FINDINGS: No mediastinal or hilar adenopathy or mass. Moderate tortuosity and ectasia of the thoracic aorta with moderate calcification. The focal lung opacities demonstrated on the previous CT scan of 01/25/2024 have nearly completely re solved indicating an inflammatory etiology. No new pulmonary parenchymal or pleural abnormalities are identified. CT/CT chest wo con [id number] IMPRESSION: Near complete resolution of the previously demonstrated right lower lung abnorm alities as above.
== END 2024-03-12 11:47 | disposition home or self-care (01) ==
LOC: RAD 11:47
PROVIDERS: PCP Internal Medicine; Visit Provider Nurse Practitioner Family
DX: Z09 Encounter for follow-up examination after completed treatment for conditions other than malignant neoplasm (principal); I77.810 Thoracic aortic ectasia
CPT/HCPCS: 71250

== ENCOUNTER 2024-03-19 07:15 | Outpatient (CLI) | payer OTHER, SELFPAY ==
--- NOTE | 2024-03-19 07:30 | USCV_ITS ---
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 No Doppler signals in the dorsalis pedis artery on the right side. Moderate to heavy diffuse irregular plaques in the iliac, femoral and popliteal artery on the left side. Monophasic and continuous low amplitude Doppler waveforms on the left side. No Doppler flow signals in the dorsalis pedis artery on the left side CONCLUSIONS 1. Abnormal resting NEEL of 0.6 on the left side, has a history of moderately severe peripheral artery disease. Abnormal Doppler waveforms, suggesting possible arterial obstruction at the iliofemoral level with collateral filling of the distal vessels. 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 Normal resting NEEL of 1.1 on the right side suggesting no significant arterial obstruction in the major vessels. Features of total occlusion of the dorsalis pedis artery on the right side. No similar previous studies are available for comparison Dr Nick Booker MD [facility] (Electronically Signed) Final Date: 20 March 2024 22:57 S
== END 2024-03-19 07:16 | disposition home or self-care (01) ==
PROVIDERS: PCP Internal Medicine; Visit Provider Internal Medicine Cardiovascular Disease
DX: I73.9 Peripheral vascular disease, unspecified (principal)
CPT/HCPCS: 93925

== ENCOUNTER 2024-03-31 07:16 | Outpatient (CLI) | payer OTHER, SELFPAY ==
--- NOTE | 2024-03-31 | ECG_ITS ---
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 Interpretive Statements Lung unchanged pre/post procedure; Intraprocedure shortess of breath; Symptoms resoled by discharge PROCEDURE: At the baseline, the EKG revealed atrial fibrillation with a frequent PVCs in the form of couplets and triplets. Poor R wave progression. Diffuse nonspecific T wave changes.. The baseline heart was 88 bpm with a blood pressue of 130/87 mm of Hg Lexiscan was infused over a period of 20 seconds. A total of 0.4 milligrams of Lexiscan was infused. The stress phase was continued for a total of 5 minutes. Heart rate at the end of the stress phase was 85 bpm with a blood pressure 110/78 mm of Hg. The EKG at the peak infusion revealed no significant changes. Sestamibi was injected 20 seconds after the Lexiscan infusion. Heart rate at the end of the recovery phase was 88 bpm with a blood pressure of 126/67 mm of Hg. CONCLUSION: 1. No significant EKG changes with the LexiScan infusion 2. No LexiScan induced chest pain or cardiac arrhythmia 3. Normal blood pressure and heart rate response 4. Sestamibi/sestamibi perfusion scan pending; see separate report. Electronically Signed On 04-04-2024 16:24:13 INFANTRY ASSAULTMAN by Nick Booker M.D. [email or web address]
[2024-03-31 07:31] VITALS: BMI 23.6
--- NOTE | 2024-03-31 07:31 | NMCV_ITS ---
NM arnel perf SPECT r/s* [id number] Asif Sky Age: 78 Gender: M : 1945 Exam Date: 03/31/2024 08:28 Ordering Phys: Nick Booker MD ([email or web address]) Technologist: MAGDALENA Sales Exam Location: [facility] Indications: cp STRESS TEST Please [facility] IMAGE PROTOCOL Rest/Stress 1 Lexiscan Day Radiopharmaceutical Dose (mCi) Administration Site Administered by Rest: Tc-99m 10.6 IV MAGDALENA Sales Sestamibi Stress:Tc-99m 33 IV MAGDALENA Ramsey Sestamibi Rest: 31-Mar-2024 60 Discovery 630 Stress: 31-Mar-2024 30 Discovery 630 0.4mg Lexiscan. Images obtained in supine and prone position. SPECT RESULTS Technical Quality: Good Raw Data Analysis: Normal Image Corrections: No attenuation or motion correction applied Summed Stress Score: 18 Summed Rest Score: 18 Summed Difference Score: 1 PERFUSION FINDINGS Moderate to large relative area of moderate to severely decreased tracer uptake involving the inferior, mid inferoseptal, mid anteroseptal, apical septal, apical lateral and LV apex. Subtle area of reversibility was noted in the apical lateral region. No significant reversibility was noted in these regions FUNCTIONAL RESULTS (calculated via Gated SPECT) Stress Image LV EF (%): 50 Stress EDV (mL):102 TID: 0.88 Stress ESV (mL):51 FUNCTIONAL FINDINGS: Segmental wall motion analysis revealed a mild hypokinesia of the LV apex IMPRESSIONS 1. Myocardial perfusion imaging revealing moderate area of moderate to severely decreased persistent tracer uptake involving the inferior, mid anteroseptal, mid inferoseptal and apical regions with no significant reversibility suggesting myocardial scarring predominantly distribution of the right coronary artery and left and descending artery with minimal involvement of the circumflex artery. 2. Normal LV ejection fraction of 50%. 3. LV wall motion abnormalities as mentioned above. 4. Mildly dilated LV cavity No significant ischemia, based on the above findings. No similar previous studies are available for comparison Dr Nick Booker MD FAC (Electronically Signed) Final Date: 31 March 2024 19:17 S
[2024-03-31] MEDS: regadenoson 0.4 Mg/5 ml Syringe IVP (08:51)
[2024-03-31 09:03] VITALS: BP 126/67; PULSE 88
== END 2024-03-31 07:17 | disposition home or self-care (01) ==
LOC: CDL 07:16
PROVIDERS: PCP Internal Medicine; Visit Provider Internal Medicine Cardiovascular Disease
DX: Z98.61 Coronary angioplasty status (principal); R06.02 Shortness of breath
CPT/HCPCS: 36415; 78452; 93017; 96374; A9500; J2785

== ENCOUNTER 2024-04-17 20:51 | Emergency (ER) | payer OTHER, MEDICARE, SELFPAY ==
[2024-04-17 20:51] VITALS: BP 137/75; PULSE 84; RESP 18; TEMP 36.6; O2SAT 94; BMI 24.1
[2024-04-17 21:16] LABS: Basophils # 0.1 10^3/uL (0.0-0.1); Basophils % 1.4 %; Eosinophils # 0.2 10^3/uL (0.0-0.8); Eosinophils % 2.2 %; Hematocrit 42.4 % (37-53); Lymphocytes # 2.7 10^3/uL (0.8-4.8); Lymphocytes % 29.4 %; Mean Corpuscular HGB Conc 32.8 g/dL (30-55); Mean Corpuscular Hemoglobin 27.6 pg (27-33); Mean Corpuscular Volume 84.3 fl (82-101); Mean Platelet Volume 9.6 fL (7.4-10.4); Monocytes # 0.7 10^3/uL (0.2-0.9); Neutrophils # 5.34 10^3/uL (1.8-7.7); Neutrophils % 58.7 %; Nucleated Red Blood Cells % 0 %; Platelet Count 271 10^3/cmm (157-399); Red Blood Count 5.03 10^6/uL (3.85-5.65); Red Cell Distribution Width 13.4 % (12.1-15.1); White Blood Count 9.11 10^3/uL (3.29-11.43)
--- NOTE | 2024-04-17 21:16 | ED_ITS ---
HPI - Abdominal Pain 2 General: Chief Complaint: Abdominal Pain Stated Complaint: Abd Pain Time Seen by Provider: 04/17/24 20:54 History of Present Illness: 78-year-old man with a history of [place] artery disease status post stents, COPD, hypertension, depression and anxiety, BPH, hyperlipidemia, peripheral vascular disease, type 2 diabetes, obstructive sleep apnea, and history of aortic issues who presents emergency room with right lower quadrant abdominal pain. He says he does still have his appendix. This started a couple hours ago. No nausea or vomiting. No fevers. He has guarding on exam. No altered mental status. No focal motor deficits Related Data Home Medications Medication Instructions Recorded Confirmed amlodipine 10 mg tablet 5 mg PO DAILY 07/30/19 07/28/20 atorvastatin 80 mg tablet 40 mg PO BEDTIME 07/30/19 07/28/20 buspirone 15 mg tablet 15 mg PO BID 07/30/19 07/28/20 cholecalciferol (vitamin D3) 25 25 mcg PO DAILY 07/30/19 07/28/20 mcg (1,000 unit) capsule cyclobenzaprine 10 mg tablet 10 mg PO BID PRN MUSCLE CRAMPS 07/30/19 07/28/20 folic acid 1 mg tablet 1 mg PO DAILY 07/30/19 07/28/20 gabapentin 300 mg capsule 300 mg PO TID 07/30/19 07/28/20 hydroxyzine HCl 25 mg tablet 25 mg PO BEDTIME PRN UNKNOWN 07/30/19 07/28/20 tamsulosin 0.4 mg capsule 0.4 mg PO BID 07/30/19 07/28/20 trazodone 100 mg tablet 50 mg PO BEDTIME 07/30/19 07/28/20 albuterol sulfate 90 mcg/actuation 2 puff inhalation QID PRN 07/28/20 07/28/20 aerosol inhaler (ProAir HFA) Shortness Of Breath fluticasone propionate 50 2 spray intranasal DAILY PRN 07/28/20 07/28/20 mcg/actuation nasal Allergy Symptoms spray,suspension oxycodone 5 mg/5 mL oral solution 5 mg PO .EVERY 4-6 HOURS PRN Pain 07/28/20 07/28/20 tiotropium bromide 2.5 2 puff inhalation DAILY 07/28/20 07/28/20 mcg/actuation mist for inhalation (Spiriva Respimat) venlafaxine 75 mg capsule,extended 225 mg PO QAM 07/28/20 07/28/20 release 24 hr (Effexor XR) acetaminophen 325 mg tablet 325 mg PO QID PRN 03/13/22 albuterol sulfate 2.5 mg/3 mL 2.5 mg inhalation Q4H PRN 03/13/22 (0.083 %) solution for nebulization bisacodyl 10 mg rectal suppository 10 mg LA DAILY PRN 03/13/22 bisacodyl 5 mg tablet,delayed 5 mg PO DAILY PRN 03/13/22 release famotidine 20 mg tablet 20 mg PO DAILY 03/13/22 finasteride 5 mg tablet 5 mg PO DAILY 03/13/22 magnesium hydroxide 400 mg/5 mL 5 ml PO DAILY PRN 03/13/22 oral suspension (Milk of Magnesia) naloxone 0.4 mg/mL injection 0.4 mg SUBCUT Q2M PRN 03/13/22 solution omeprazole 20 mg capsule,delayed 20 mg PO BID 03/13/22 release polyethylene glycol 3350 17 4 g PO DAILY PRN 03/13/22 gram/dose oral powder (Miralax) sodium phosphates 19 gram-7 118 ml LA DAILY PRN 03/13/22 gram/118 mL enema (Fleet Enema) Previous Rx's Medication Instructions Recorded budesonide-formoterol HFA 160 2 puff inhalation BID 30 days 02/02/20 mcg-4.5 mcg/actuation aerosol #10.2 grams inhaler (Symbicort) cefdinir 300 mg capsule 300 mg PO BID 7 days #14 caps 04/17/24 Allergies Allergy/AdvReac Type Severity Reaction Status Date / Time No Known Allergies Allergy Verified 04/17/24 21:01 Review of Systems 2 Narrative: Constitutional symptoms: Negative except as documented in HPI. Skin symptoms: Negative except as documented in HPI. Eye symptoms: Negative except as documented in HPI. ENMT symptoms: Negative except as documented in HPI. Respiratory symptoms: Negative except as documented in HPI. Cardiovascular symptoms: Negative except as documented in HPI. Gastrointestinal symptoms: Negative except as documented in HPI. Genitourinary symptoms: Negative except as documented in HPI. Musculoskeletal symptoms: Negative except as documented in HPI. Neurologic symptoms: Negative except as documented in HPI. Psychiatric symptoms: Negative except as documented in HPI. Endocrine symptoms: Negative except as documented in HPI. PFSH ED 2 PFSH: Medical History CAD (coronary artery disease) Rhabdomyolysis Hypoxia Acute hypotension Acute renal failure Drug overdose COPD (chronic obstructive pulmonary disease) HTN (hypertension) Depression with anxiety BPH (benign prostatic hyperplasia) Hypercalcemia Hyperlipidemia Chronic ischemic heart disease Lumbago PVD (peripheral vascular disease) MIKE (obstructive sleep apnea) Type 2 diabetes mellitus Impotence Surgical History S/P PTCA (percutaneous transluminal coronary angioplasty) S/P peripheral artery angioplasty with stent placement Social History Smoking and tobacco/nicotine status: current every day tobacco/nicotine user cigarettes Packs smoked per day: 1 Years cigarettes smoked: 55 Quit status (tobacco/nicotine): not considering quitting Alcohol intake: current Alcohol intake frequency: 0-2 Drinks per Day Alcohol type: beer Substance/Drug Use: never Caregiver/support person: Yes Lives independently: Yes Household members: family service: Yes Current occupational status: retired and disabled Do you think of yourself as: Straight/Heterosexual Current gender identity: Male Physical Exam 2 Narrative: EXAM NARRATIVE: General: Alert, no acute distress. Skin: Warm, dry. Head: Normocephalic, atraumatic. Neck: Supple, trachea midline. Eye: Extraocular movements are intact. Ears, nose, mouth and throat: mucosa moist. Cardiovascular: Regular, Normal peripheral perfusion. Respiratory: Lungs are clear to auscultation, respirations are non-labored, breath sounds are equal, Symmetrical chest wall expansion. Gastrointestinal: Soft, moderate right lower quadrant tenderness with diffuse guarding., Non distended Musculoskeletal: Normal ROM, no deformity. Neurological: Alert and oriented, No focal neurological deficit observed. Psychiatric: Cooperative, appropriate mood & affect. Course 2 Vital Signs: Vital signs: Vital Signs Temperature 98 F 04/17/24 20:51 Pulse Rate 71 04/17/24 23:14 Respiratory Rate 18 04/17/24 20:51 Blood Pressure 117/68 04/17/24 23:14 Pulse Oximetry 93 04/17/24 23:14 Oxygen Delivery Me thod Room Air 04/17/24 20:51 Oxygen Flow Rate 2 04/17/24 20:51 MDM - Abdominal Pain Medical Decision Making Medical decision making: Differential diagnosis for this patient with right lower quadrant abdominal pain including but not limited to and based on the above HPI, review of systems and physical exam: Ureterolithiasis. Urinary tract infection. Appendicitis. colitis. small bowel obstruction. Crohn's flare. Pancreatitis. Cholelithiasis or cholecystitis. Hepatitis. Diverticulitis. Constipation. ovarian cyst. ovarian torsion Workup: Orders were placed to evaluate differential diagnosis based on the above differential, HPI and exam: Lab Review: Laboratory results were reviewed and interpreted by myself the emergency room physician. No leukocytosis. No anemia. No renal failure. Urine does show an infection. CT of the abdomen pelvis with contrast: No obvious acute findings. Atherosclerotic changes including renal stenosis. This was reviewed and interpreted by myself the emergency room physician. I also reviewed the radiology report. I reviewed the patient's medical record Reexamination: Patient says he is feeling quite a bit better at this point. Pain is resolved. Patient remained stable. No increased work of breathing. No altered mental status. No focal motor deficits. Assessment and plan: Urinary tract infection Abdominal pain ?IV Rocephin in the emergency room - Discharged home - Discussed findings and plan with patient. Answered any questions. - All laboratory values were reviewed and interpreted personally by myself, the ER physician - All imaging was reviewed and interpreted personally by myself, the ER physician. - Evaluation and treatment of this problem were appropriate in the emergency setting . Lab Data 04/17/24 21:08 04/17/24 21:08 Labs/Radiology: Radiology Impressions Abdomen/Pelvis CT 04/17/24 22:16 IMPRESSION: 1. Prominent fluid in the stomach and small bowel, please correlate for a gastroenteritis. 2. Extensive aortic and iliac artery atherosclerotic calcification. 3. Coronary artery atherosclerotic calcifications. 4. Bibasilar atelectasis. 5. Extensive left renal artery atherosclerotic calcification 2 suspected 70% luminal narrowing. 6. Fusiform infrarenal abdominal aortic aneurysm measuring up to 3.6 cm in diameter. 7. Urinary bladder wall thickening, please correlate for cystitis. 8. Prostate gland is somewhat enlarged. Laboratory Results WBC 9.11 10^3/uL (3.29-11.43) 04/17/24 21:08 RBC 5.03 10^6/uL (3.85-5.65) 04/17/24 21:08 Hgb 13.90 g/dL (11.27-16.99) 04/17/24 21:08 Hct 42.4 % (37-53) 04/17/24 21:08 MCV 84.3 fl (82-101) 04/17/24 21:08 MCH 27.6 pg (27-33) 04/17/24 21:08 MCHC 32.8 g/dL (30-55) 04/17/24 21:08 RDW 13.4 % (12.1-15.1) 04/17/24 21:08 Plt Count 271 10^3/cmm (157-399) 04/17/24 21:08 MPV 9.6 fL (7.4-10.4) 04/17/24 21:08 Neut % (Auto) 58.7 % 04/17/24 21:08 Lymph % (Auto) 29.4 % 04/17/24 21:08 [place] % (Auto) 8.0 % 04/17/24 21:08 Eos % (Auto) 2.2 % 04/17/24 21:08 Baso % (Auto) 1.4 % 04/17/24 21:08 Neut # (Auto) 5.34 10^3/uL (1.8-7.7) 04/17/24 21:08 Lymph # (Auto) 2.7 10^3/uL (0.8-4.8) 04/17/24 21:08 [place] # (Auto) 0.7 10^3/uL (0.2-0.9) 04/17/24 21:08 Eos # (Auto) 0.2 10^3/uL (0.0-0.8) 04/17/24 21:08 Baso # (Auto) 0.1 10^3/uL (0.0-0.1) 04/17/24 21:08 Nucleated RBC % (auto) 0 % 04/17/24 21:08 Nucleated RBCs # 0.0 /100WBC 04/17/24 21:08 Sodium 137 mmol/L (136-145) 04/17/24 21:08 Potassium 4.1 mmol/L (3.5-5.1) 04/17/24 21:08 Chloride 98 mmol/L (98-107) 04/17/24 21:08 Carbon Dioxide 28 mmol/L (22-29) 04/17/24 21:08 Anion Gap 15.1 (5-19) 04/17/24 21:08 BUN 13 mg/dL (8-23) 04/17/24 21:08 Creatinine 1.0 mg/dL (0.7-1.2) 04/17/24 21:08 GFR Calculation Not Reportable 04/17/24 21:08 Glucose 100 mg/dL (65-115) 04/17/24 21:08 Calculated Osmolality 284 mOsm/kg (285-295) L 04/17/24 21:08 Lactic Acid 1.6 mmol/L (0.5-2.2) 04/17/24 21:08 Calcium 9.4 mg/dL (8.5-10.5) 04/17/24 21:08 Total Bilirubin 0.3 mg/dL (0.15-1.2) 04/17/24 21:08 AST 10 U/L (0-40) 04/17/24 21:08 ALT 7 U/L (0-41) 04/17/24 21:08 Alkaline Phosphatase 210 U/L (40-130) H 04/17/24 21:08 C-Reactive Protein 18.3 mg/L (0.0-4.9) H 04/17/24 21:08 Total Protein 6.5 g/dL (6.6-8.7) L 04/17/24 21:08 Albumin 3.8 g/dL (3.5-5.2) 04/17/24 21:08 Globulin 2.7 g/dL (1.3-4.6) 04/17/24 21:08 Urine Color Yellow (Yellow) 04/17/24 22:30 Urine Appearance Clear (CLEAR) 04/17/24 22: Urine pH 5.0 (5-7) 04/17/24:30 Ur Specific [place] 1.020 (1.005-1.030) 04/17/24 22:30 Urine Protein 1+ (Negative) A 04/17/24 22:30 Urine Glucose (UA) Negative (Normal) 04/17/24 22:30 Urine Ketones Negative (Negative) 04/17/24 22:30 Urine Blood Negative (Negative) 04/17/24 22:30 Urine Nitrate Negative (Negative) 04/17/24 22:30 Urine Bilirubin Negative (Negative) 04/17/24 22:30 Urine Urobilinogen 1.0 mg/dL (Negative) 04/17/24 22:30 Ur Leukocyte Esterase 1+ (Negative) A 04/17/24 22:30 Urine RBC 0-2 /hpf (0-2) 04/17/24 22:30 Urine WBC 11-20 /hpf (0-5) H 04/17/24 22:30 Ur Squamous Epith Cells 0-5 /hpf (0-5) 04/17/24 22:30 Amorphous Sediment Not Reportable 04/17/24 22:30 Urine Bacteria None seen /hpf (NONE) 04/17/24 22:30 Hyaline Casts 4.11 /lpf 04/17/24 22:30 All radiology interpretation(s) finalized by discharge Discharge Plan Discharge Patient Disposition: Home Clinical Impression: Acute UTI, Abdominal pain, Renal artery stenosis Condition: Stable Prescriptions: New cefdinir 300 mg capsule 300 mg PO BID 7 Days Qty: 14 0RF No Action amlodipine 10 mg tablet 5 mg PO DAILY Hold Instructions: Resume on 08/18/20. atorvastatin 80 mg tablet 40 mg PO BEDTIME buspirone 15 mg tablet 15 mg PO BID cyclobenzaprine 10 mg tablet 10 mg PO BID PRN (Reason: MUSCLE CRAMPS) folic acid 1 mg tablet 1 mg PO DAILY gabapentin 300 mg capsule 300 mg PO TID tamsulosin 0.4 mg capsule 0.4 mg PO BID trazodone 100 mg tablet 50 mg PO BEDTIME cholecalciferol (vitamin D3) 25 mcg (1,000 unit) capsule 25 mcg PO DAILY hydroxyzine HCl 25 mg tablet 25 mg PO BEDTIME PRN (Reason: UNKNOWN) budesonide-formoterol [Symbicort] 160-4.5 mcg/actuation HFA aerosol inhaler 2 puff INHALATION BID 30 Days Qty: 10.2 3RF acetaminophen 325 mg tablet 325 mg PO QID PRN albuterol sulfate 2.5 mg /3 mL (0.083 %) solution for nebulization 2.5 mg inhalation Q4H PRN naloxone 0.4 mg/mL solution 0.4 mg SUBCUT Q2M PRN Rx Instructions: NTExceed 10 mg total dose/episode famotidine 20 mg tablet 20 mg PO DAILY magnesium hydroxide [Milk of Magnesia] 400 mg/5 mL suspension 5 ml PO DAILY PRN bisacodyl 10 mg suppository 10 mg LA DAILY PRN Fleet Enema 19-7 gram/118 mL enema 118 ml LA DAILY PRN omeprazole 20 mg capsule,delayed release(DR/EC) 20 mg PO BID bisacodyl 5 mg tablet,delayed release (DR/EC) 5 mg PO DAILY PRN polyethylene glycol 3350 [Miralax] 17 gram/dose powder 4 g PO DAILY PRN finasteride 5 mg tablet 5 mg PO DAILY Effexor XR 75 mg Capsule,Extended Release 24hr 225 mg PO QAM oxycodone 5 mg/5 mL solution 5 mg PO .EVERY 4-6 HOURS PRN (Reason: Pain) ProAir HFA 90 mcg/actuation Hfa Aerosol Inhaler 2 puff INHALATION QID PRN (Reason: Shortness Of Breath) fluticasone propionate 50 mcg/actuation [place],Suspension 2 spray INTRANASAL DAILY PRN (Reason: Allergy Symptoms) Spiriva Respimat 2.5 mcg/actuation Mist 2 puff INHALATION DAILY Rx Instructions: SEE PHARMACY COMMENTS Discharge Orders: Discharge ED (Routine); Ordered 04/17/24 Ordered By: Carmen Cunha Referrals: Hoang Hancock DO [Primary Care Provider] - Discharge Diet: Usual diet Discharge Activity: Increase activity as tolerated Patient Instructions: Abdominal Pain (ED), Opioid Safety, Pain Management Activity Restrictions/Additional Instructions: There was some narrowing of your renal artery seen on CT scan. You should follow-up with your primary care provider regarding this. Thank you for choosing [facility] for your healthcare needs today. Please realize this is an emergency room and that we are providing you with a medical screening exam and this may not be complete and all inclusive of all the testing and or work up that you may need to determine your ailment or severity of your illness. You have been screened and evaluated and felt safe for discharge. Health conditions do change or evolve sometimes and as such it is important that you follow up with your Primary Doctor to be re checked, 3-5 days is a general good time frame for follow up. You are always welcome to return to the ED for re assessment if your symptoms are worsening or you have new concerns Coding Level of Care Code ED Plush [employer]er for Jayson Parker
[2024-04-17 21:26] VITALS: BP 137/75; PULSE 73; O2SAT 90
[2024-04-17 21:31] LABS: Alanine Aminotransferase 7 U/L (0-41); Albumin Level 3.8 g/dL (3.5-5.2); Alkaline Phosphatase 210 U/L (40-130); Anion Gap 15.1 (5-19); Aspartate Amino Transferase 10 U/L (0-40); Blood Urea Nitrogen 13 mg/dL (8-23); C Reactive Protein 18.3 mg/L (0.0-4.9); Calcium 9.4 mg/dL (8.5-10.5); Carbon Dioxide 28 mmol/L (22-29); Chloride 98 mmol/L (98-107); Creatinine Clr Calc Pharmacy 59.1511; Globulin 2.7 g/dL (1.3-4.6); Glucose 100 mg/dL (65-115); Osmolality Calculated 284 mOsm/kg (285-295); Potassium 4.1 mmol/L (3.5-5.1); Sodium 137 mmol/L (136-145); Total Bilirubin 0.3 mg/dL (0.15-1.2); Total Protein 6.5 g/dL (6.6-8.7)
[2024-04-17 21:32] LABS: Lactic Sepsis W/Reflex 1.6 mmol/L (0.5-2.2)
--- NOTE | 2024-04-17 22:16 | CTR_ITS ---
PROCEDURE INFORMATION: Exam: CT Abdomen And Pelvis With Contrast Exam date and time: 04/17/2024 10:32 PM Age: 78 years old Clinical indication: Abdominal pain TECHNIQUE: Imaging protocol: Computed tomography of the abdomen and pelvis with contrast. Radiation optimization: All CT scans at this facility use at least one of these dose optimization techniques: automated exposure control; mA and/or kV adjustment per patient size (includes targeted exams where dose is matched to clinical indication); or iterative reconstruction. Contrast material: OMNI 350; Contrast volume: 100 ml; Contrast route: INTRAVENOUS (IV); COMPARISON: CT ch abdpel wo/w [id number] 12/24/2023 10:57 AM RADIATION DOSE METRICS: Total DLP (mGy-cm): 512.96 FINDINGS: Lungs: Bibasilar atelectasis. Coronary arteries: Coronary artery atherosclerotic calcifications. Liver: Normal. No mass. Gallbladder and biliary ducts: Normal. No calcified stones. No ductal dilation. Pancreas: Normal. No ductal dilation. Spleen: Normal. No splenomegaly. Adrenal glands: Normal. No mass. Kidneys and ureters: Normal. No hydronephrosis. Stomach and bowel: Prominent fluid in the stomach and small bowel, please correlate for a gastroenteritis. Appendix: No evidence of appendicitis. Intraperitoneal space: Unremarkable. No free air. No significant fluid collection. Vasculature: Extensive aortic and iliac artery atherosclerotic calcification. Extensive left renal artery atherosclerotic calcification 2 suspected 70% luminal narrowing. Fusiform infrarenal abdominal aortic aneurysm measuring up to 3.6 cm in diameter. Lymph nodes: Unremarkable. No enlarged lymph nodes. Urinary bladder: Urinary bladder wall thickening, please correlate for cystitis. Reproductive: Prostate gland is somewhat enlarged. Bones/joints: Unremarkable. No acute fracture. Soft tissues: Unremarkable. CT/CT abdomen pelvis w con* [id number] IMPRESSION: 1. Prominent fluid in the stomach and small bowel, please correlate for a gastroenteritis. 2. Extensive aortic and iliac artery atherosclerotic calcification. 3. Coronary artery atherosclerotic calcifications. 4. Bibasilar atelectasis. 5. Extensive left renal artery atherosclerotic calcification 2 suspected 70% luminal narrowing. 6. Fusiform infrarenal abdominal aortic aneurysm measuring up to 3.6 cm in diameter. 7. Urinary bladder wall thickening, please correlate for cystitis. 8. Prostate gland is somewhat enlarged.
[2024-04-17 22:20] VITALS: BP 137/75; PULSE 73; O2SAT 93
[2024-04-17] MEDS: iohexol 350 mg/mL 500 mL Btl (per mL) IV (22:34)
[2024-04-17 22:36] LABS: Bilirubin Urine Negative (Negative); Blood Urine Negative (Negative); Glucose Urine UA Negative (Normal); Ketones Urine Negative (Negative); Leukocyte Esterase Urine 1+ (Negative); Nitrate Urine Negative (Negative); Protein Urine 1+ (Negative); Urine Appearance Clear (CLEAR); Urine Color Yellow (Yellow)
[2024-04-17 22:39] LABS: Bacteria Urine None Seen /hpf; Hyaline Casts Urine 4.11 /lpf; RBC Urine 0-2 /hpf (0-2); Squamous Epithelial Cell Urine 0-5 /hpf (0-5)
[2024-04-17 23:14] VITALS: BP 117/68; PULSE 71; O2SAT 93
[2024-04-18] MEDS: cefTRIAXone 1,000 mg SDV 1000 MG IVP (00:05)
== END 2024-04-18 00:29 | disposition home or self-care (01) ==
PROVIDERS: Emergency Provider Emergency Medicine; PCP Internal Medicine
DX: N39.0 Urinary tract infection, site not specified (principal); I70.1 Atherosclerosis of renal artery; R10.9 Unspecified abdominal pain; F17.210 Nicotine dependence, cigarettes, uncomplicated; E11.9 Type 2 diabetes mellitus without complications; I25.10 Atherosclerotic heart disease of native coronary artery without angina pectoris; I10 Essential (primary) hypertension; E78.5 Hyperlipidemia, unspecified; J44.9 Chronic obstructive pulmonary disease, unspecified
CPT/HCPCS: 36415; 74177; 80053; 81001; 83605; 85025; 86140; 87040; 96374; 99285; J0696

== ENCOUNTER 2024-05-19 06:00 | Outpatient (CLI) | payer OTHER, SELFPAY ==
[2024-05-19] VITALS (25 sets, daily range): BP systolic 123–158; BP diastolic 55–103; PULSE 47–89; RESP 16–27; TEMP 36.8; O2SAT 80–99; BMI 25.8
[2024-05-19] MEDS: aspirin 325 mg Tablet PO (06:30)
[2024-05-19] MEDS: diphenhydrAMINE 50 mg Capsule PO (06:30)
[2024-05-19 06:37] LABS: Basophils # 0.1 10^3/uL (0.0-0.1); Basophils % 1.4 %; Eosinophils # 0.3 10^3/uL (0.0-0.8); Eosinophils % 3.4 %; Hematocrit 45.8 % (37-53); Lymphocytes # 2.6 10^3/uL (0.8-4.8); Lymphocytes % 29.9 %; Mean Corpuscular HGB Conc 32.3 g/dL (30-55); Mean Corpuscular Hemoglobin 27.4 pg (27-33); Mean Corpuscular Volume 84.8 fl (82-101); Mean Platelet Volume 9.7 fL (7.4-10.4); Monocytes # 0.8 10^3/uL (0.2-0.9); Monocytes % 8.6 %; Neutrophils # 4.95 10^3/uL (1.8-7.7); Neutrophils % 56.4 %; Nucleated Red Blood Cells % 0 %; Platelet Count 244 10^3/cmm (157-399); Red Cell Distribution Width 13.7 % (12.1-15.1); White Blood Count 8.77 10^3/uL (3.29-11.43)
[2024-05-19 06:53] LABS: Blood Urea Nitrogen 14 mg/dL (8-23); Calcium 9.8 mg/dL (8.5-10.5); Carbon Dioxide 26 mmol/L (22-29); Chloride 100 mmol/L (98-107); Creatinine Clr Calc Pharmacy 54.4827; Glucose 107 mg/dL (65-115); Osmolality Calculated 291 mOsm/kg (285-295); Sodium 140 mmol/L (136-145)
[2024-05-19] MEDS: albuterol 2.5 mg/3 mL Neb INHALATION ×2 (07:00→15:40)
--- NOTE | 2024-05-19 07:00 | XACV_ITS ---
Wt: 75 kg BSA: 1.89 m2 Any Known Allergies: No known allergies Gender: Male : 1945 Exam Type: Invasive Peripheral Vascular Procedure(s): Procedure Description: Peripheral Cath Diagnostic Procedure Procedure Description: Abdominal aortic angiography Procedure Description: Lower extremities' angiography Exam Priority: Routine GEOAC, Jhony; Abdominal Diagnostic Findings The abdominal aortogram was performed by placing the pigtail catheter at the level of the renal artery. The aortogram was performed the AP view by digital subtraction. The infrarenal aorta was found to have fusiform dilatation. The maximum diameter was measured to be around----centimeter. Mild to moderate diffuse plaques were noted in the aorta. There is another small aneurysm at the bifurcation. The maximum diameter was---. The left renal artery was found to be patent. The left renal artery was not visualized.. Lower Extremity Diagnostic Findings The left common femoral artery was found to have mild to moderate diffuse disease. Right after the origin of the internal iliac artery, the artery appears to be totally occluded. The internal iliac artery was found to be communicating with the deep femoral artery giving bridging collaterals. The external iliac artery totally occluded at its entire length. The common femoral artery was found to have moderate diffuse disease. The superficial femoral artery was found to have moderate diffuse disease especially at the mid segment. The popliteal artery was found to be widely patent. Two-vessel runoff was noted towards the ankle. The anterior tibial artery was not visualized. The intermedius artery was found to be extending up to the ankle. The posterior tibial artery was found to be extending into the foot. The right common iliac artery was found to be patent with mild diffuse disease. The external leg artery was found to have a long stent which was found to be patent. At the proximal end of the stent, there was moderate disease in the common iliac artery. The profundofemoral artery was found to have high-grade lesion proximally. Superficial femoral artery was found to have mild diffuse disease. Popliteal artery was found to be patent. One-vessel runoff was noted in the antecubital artery. The intermedius artery was found to be patent proximally. Posttibial artery was not visualized.. 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 The NEEL was 0.6 on the left and 1.1 on the right. In view of his ongoing worsening exertional symptoms, an angiogram with possible intervention was recommended. The findings are as follows. 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 Bridging collaterals through internal iliac artery. Common femoral artery was found to have moderate diffuse disease. Moderate diffuse disease in the left femoral artery. Two-vessel runoff infrapopliteal he to the ankle on the left side. Patent stent in the external iliac artery on the right side. Moderate stenosis at the proximal end of the stent. High-grade lesion of the ostium of the deep femoral artery on the right side. Mild to moderate diffuse disease in the femoral artery. One-vessel runoff to the ankle. Other infrapopliteal vessels were not well-visualized. Recommendations I reviewed and discussed the angiogram findings with Dr. Orellana. Because of the chronic nature of the occlusion on the left side, it was decided to optimize medical management and consider intervention if the patient develops unstable symptoms. Hemodynamic Data Phase:Rest AO : 130.0 / 51.0 ( 82.0 ) @ 7:53:00 AM Access Site Site: Right Femoral artery Sheath Size: 6 Fr Hemost... Method: Suture Hemost... Success: Successful Procedure Details Findings Procedure Consent Obtained. Pre-Procedure Time Out. Identified patient by full name and date of as verbalized by the patient/guarantor. Does the consent match the physician's order: Yes. Accurate & Complete Informed Consent: Yes. Inpatient/Outpatient History & Physical on Chart: Yes. If H&P is completed, is and addenduem needed: No; If yes, is the addendum complete: N/A. Visualize and Verify Site with Patient/Guarantor: N/A. Relevant Radiology Images available: N/A. Pre-op teaching completed and patient verbalized understanding. The risks, benefits, and alternatives of sedation and/or procedure were discussed by physician. The patient agrees to continue. Procedure started. Correct patient, site and procedure confirmed by cath team. PERRLA. Strong, equal hand sr. director product management bilaterally. Lungs clear x 5 lobes. IV Site on Arrival: 20 gauge in the right anticubital. IV Fluids: 0.9% NaCl at KVO. 0 mL infused prior to logging rafter laborer. Pre Procedural Pulses: bilateral dorsalis pedis was Doppled. Pre Procedural Pulses: bilateral posterior tibial was Doppled. Pre Procedural Pulses: bilateral radial was 3+. Oxygen started at 2liters/min via nasal canula. bilateral groins was prepped with chloroprep then draped in the usual sterile fashion. Baseline sample Acquired. HR: 90 BPM. Physician arrived. Equipment: Peripheral. Cardiac Cath Pack. ACIST Manifold Kit Model BT 2000. Heparinized Saline (2 units/mL), 1000 mL bag. Physician scrubbed in. Immediate Pre-Procedure Time Out. Correct Patient: Yes; Correct Procedure: Yes; Correct Site: Yes; Correct Patient Position: Yes; Correct Supplies: Yes; Dried Flammable Prep: Yes; Blood Products Available: N/A;. Lidocaine 1% infiltrated to the right groin. Hand injection through needle. Arterial access obtained with micropuncture set. A 5Fr UF catheter in over wire. Abdominal aortogram performed in AP @ 10 mL/sec for a total of 30 mL. Abdominal aortogram performed in AP @ 10 mL/sec for a total of [address] Orellana to come view images. Dr Orellana arrived. Right leg runoff through UF catheter. Iliac imaging performed. Right leg runoff through UF catheter 10 ml/sec for a total of 20 mL. Catheter removed. Physician scrubbed out. A Suture was successful obtaining hemostatsis at the Right Femoral artery insertion site. Sheath(s) sutured into position with 2-0 silk and sterile 4x4's and Op-site applied over the site. No oozing or signs and symptoms of hematoma noted. Arterial sheath flushed and connected to tranducer and pressure bag with heparinized saline. Post Procedure: Pulses reassessed and unchanged. PERRLA. Strong, equal hand sr. director product management bilaterally. No VTE prophylaxis required. Contrast type used: Visipaque 320 mgI/mL, 500 mL bottle. Post-op diagnosis: total occlusion L ext iliac and L common femoral. Complications: none. Estimated blood loss: 5mL-10mL. Responsiveness - Normal response to verbal stimuli; alert and oriented, PERRLA. Airway - Unaffected, no intervention required; spontaneous ventilation. Circulation: W/N/L, pulses unchanged. Total IV fluids: 300 mL. Medication's Wasted: Lidocaine 1% = 5 mL. Medication's Wasted: Heparin = 2500 units. Medication's Wasted: Other = versed 1 mg. Medication's Wasted: Other = fentanyl 50 mcg. Nausea/Vomiting: No. Procedure completed. Patient transferred by stretcher to CPRU. Vital chart was stopped. Procedure Medications Start: 7:24 AM Stop: 7:24 AM Medication: Versed Amount: 1 mg Route: I.V. Start: 7:24 AM Stop: 7:24 AM Medication: Fentanyl Amount: 25 mcg Route: I.V. Start: 7:34 AM Stop: 7:34 AM Medication: Fentanyl Amount: 25 mcg Route: I.V. Start: 7:52 AM Stop: 7:52 AM Medication: Heparin Amount: 1500 units Route: I.V. I, the attending physician, have reviewed and verified all procedure medications. Yes, all medications given per verbal order History/Risk Factors Hypertension: Yes Dyslipidemia: Yes Peripheral Arterial Disease (PAD): Yes Obesity: No Renal Disease: No Tobacco Use: Current/Recent(w/in 1 year) Prior Interventions PCI: Yes CABG: No Valve Surgery: No Report Signatures Finalized by Dr Nick Booker MD FACC on 05/19/2024 09:34 AM
--- NOTE | 2024-05-19 07:10 | W.PM.OPSUD ---
Surgery/Procedure H&P Update DATE OF PROCEDURE: May 19, 2024 DATE H&P PERFORMED: 05/19/24 H&P UPDATE INFORMATION: I have reviewed H&P completed within last 30 days, I have examined patient prior to procedure and No changes to prior documentation PREOP DIAGNOSIS: PAD/AAA/ASHD PRIMARY INDICATION FOR PROCEDURE: Exertional claudication with no significant limitations of activities PLANNED PROCEDURE: Operation Date: 05/19/24 07:00 Proposed Procedures p Peripheral Diagnostic - Peripheral Angio(Not Applicable) - Nick Booker MD PATIENT REASSESSED PRIOR TO SEDATION, WITH NO CHANGE NOTED: Yes PHYSICAL EXAM: alert, oriented x 3, clear to auscultation bilaterally and regular rate & rhythm AIRWAY EVAL/ANESTHESIA PLAN: normal airway, see other exam findings, ASA III, Monitored Anesthesia, Local Anesthesia and Risks, benefits & alternatives of sedation and/or procedure discussed ADDITIONAL INFORMATION: Patient is noted to have severe COPD/reactive airway disease
--- NOTE | 2024-05-19 07:15 | PM.HP ---
Providers/Chief Complaint Admitting Physician: Carlos Orellana MD Primary Care Provider: Hoang Hancock DO Chief Complaint: I73.9 History of Present Illness Asif Sky is a 79 year old male with a history of atherosclerotic heart diseas, multiple PCI's, peripheral artery disease, high blood pressure, dyslipidemia, severe COPD and sleep apnea is presenting with exertional claudication , bilaterally, more so on the left lower extremity. He apparently has a history of FLOWER GROWER of the right femoral artery many years ago. He was told to have a total occlusion of the left iliac? In the past. He had an arterial Doppler examination recently and was found to an NEEL 1.1 on the right side and 0.6 on the left side. In view of his worsening symptoms , noted to further evaluate his peripheral arteries, a peripheral angiogram was recommended. Patient also had a recent Myocardial perfusion imaging which was essentially unremarkable with the areas of fixed defects in the distribution of the right coronary artery. He is known to have relatively low heart rate. He continues to smoke. He was found to have aneurysm in the infrarenal aorta and also at the aortic bifurcation. He has a history of squamous cell carcinoma of the tongue, status post partial glossectomy and? Vocal cord resection. He is status post chemoradiation. Being followed by oncology. Has not had a significant recurrence Review of Systems Narrative: CONSTITUTIONAL: No fever or chills. EYES: No blurring of vision or other visual disturbances lately. ENT: No hoarseness of voice, auditory disturbances or sore throat. CARDIOVASCULAR: As mentioned above. RESPIRATORY: As mentioned above GASTROINTESTINAL: No hematemesis or melena. GENITOURINARY: No dysuria or hematuria. INTEGUMENTARY: No skin rashes or history of skin cancer. NEURO: No transient ischemic attacks or amaurosis. PSYCHIATRIC: No history of psychosis or major depression. HEMATOLOGIC: No bleeding disorders or significant anemia. ENDOCRINE: No history of polyuria or polydipsia. MUSCULOSKELETAL: No recent joint pain or swelling. ALLERGY/IMMUNOLOGY: As mentioned above. Medications/Allergies Home Medications ?Medication ?Instructions ?Recorded ?Confirmed ?Last Taken ?Type amlodipine 10 mg tablet 5 mg PO DAILY 07/30/19 05/16/24 05/18/24 07:13 History Held on 08/04/20. Instructions: Resume on 08/18/20. atorvastatin 80 mg tablet 40 mg PO BEDTIME 07/30/19 05/16/24 05/18/24 19:05 History buspirone 15 mg tablet 5 mg PO BID 07/30/19 05/19/24 05/18/24 19:05 History cholecalciferol (vitamin D3) 25 25 mcg PO DAILY 07/30/19 05/16/24 05/18/24 07:13 History mcg (1,000 unit) capsule cyclobenzaprine 10 mg tablet 10 mg PO BID PRN MUSCLE CRAMPS 07/30/19 05/19/24 05/18/24 13:47 History folic acid 1 mg tablet 1 mg PO DAILY 07/30/19 05/16/24 05/18/24 07:13 History gabapentin 300 mg capsule 300 mg PO TID 07/30/19 05/16/24 05/18/24 19:05 History hydroxyzine HCl 25 mg tablet 25 mg PO BEDTIME PRN UNKNOWN 07/30/19 05/16/24 05/18/24 19:05 History tamsulosin 0.4 mg capsule 0.4 mg PO BID 07/30/19 05/16/24 05/18/24 19:05 History budesonide-formoterol HFA 160 2 puff inhalation BID 30 days 02/02/20 05/16/24 06/08/20 Rx mcg-4.5 mcg/actuation aerosol #10.2 grams inhaler (Symbicort) albuterol sulfate 90 mcg/actuation 2 puff inhalation QID PRN 07/28/20 05/16/24 Unknown History aerosol inhaler (ProAir HFA) Shortness Of Breath fluticasone propionate 50 2 spray intranasal DAILY PRN 07/28/20 05/16/24 Unknown History mcg/actuation nasal Allergy Symptoms spray,suspension oxycodone 5 mg/5 mL oral solution 5 mg PO .EVERY 4-6 HOURS PRN Pain 07/28/20 05/19/24 05/18/24 13:47 History tiotropium bromide 2.5 2 puff inhalation DAILY 07/28/20 05/16/24 Unknown History mcg/actuation mist for inhalation (Spiriva Respimat) venlafaxine 75 mg capsule,extended 225 mg PO QAM 07/28/20 05/16/24 05/18/24 07:13 History release 24 hr (Effexor XR) acetaminophen 325 mg tablet 325 mg PO QID PRN Pain 03/13/22 05/16/24 Unknown History albuterol sulfate 2.5 mg/3 mL 2.5 mg inhalation Q4H PRN 03/13/22 05/19/24 05/19/24 07:05 History (0.083 %) solution for nebulization Shortness Of Breath finasteride 5 mg tablet 5 mg PO DAILY 03/13/22 05/16/24 05/18/24 19:05 History magnesium hydroxide 400 mg/5 mL 5 ml PO DAILY PRN Heartburn 03/13/22 05/16/24 Unknown History oral suspension (Milk of Magnesia) naloxone 0.4 mg/mL injection 0.4 mg SUBCUT Q2M PRN overdose 03/13/22 05/16/24 Unknown History solution omeprazole 20 mg capsule,delayed 20 mg PO BID 03/13/22 05/19/24 05/18/24 16:10 History release polyethylene glycol 3350 17 4 g PO DAILY PRN Constipation 03/13/22 05/16/24 05/18/24 07:13 History gram/dose oral powder (Miralax) sodium phosphates 19 gram-7 118 ml CA DAILY PRN constipation\ 03/13/22 05/16/24 Unknown History gram/118 mL enema (Fleet Enema) aspirin 81 mg tablet,delayed 81 mg PO DAILY 05/19/24 05/19/24 05/18/24 07:13 History release guaifenesin 600 mg tablet, 600 mg PO BID 05/19/24 05/19/24 05/18/24 19:05 History extended release 12 hr (Mucinex) Allergies Allergy/AdvReac Type Severity Reaction Status Date / Time No Known Allergies Allergy Verified 04/17/24 21:01 PFSH Acute PFSH: Medical History CAD (coronary artery disease) Rhabdomyolysis Hypoxia Acute hypotension Acute renal failure Drug overdose COPD (chronic obstructive pulmonary disease) HTN (hypertension) Depression with anxiety BPH (benign prostatic hyperplasia) Hypercalcemia Hyperlipidemia Chronic ischemic heart disease Lumbago PVD (peripheral vascular disease) MIKE (obstructive sleep apnea) Type 2 diabetes mellitus Impotence Surgical History S/P PTCA (percutaneous transluminal coronary angioplasty) S/P peripheral artery angioplasty with stent placement Social History Smoking and tobacco/nicotine status: current every day tobacco/nicotine user cigarettes Packs smoked per day: 1 Years cigarettes smoked: 55 Quit status (tobacco/nicotine): not considering quitting Alcohol intake: current Alcohol intake frequency: 0-2 Drinks per Day Alcohol type: beer Substance/Drug Use: never Caregiver/support person: Yes Lives independently: Yes Household members: family service: Yes Current occupational status: retired and disabled Do you think of yourself as: Straight/Heterosexual Current gender identity: Male Vitals/I&O/Wt Last Vital Signs Temp 98.3 F 05/19/24 06:41 Pulse 51 L 05/19/24 07:07 Resp 20 H 05/19/24 06:58 BP 133/73 05/19/24 06:41 Pulse Ox 88 L 05/19/24 06:58 O2 Del Method Room Air 05/19/24 06:58 Weight last 48 hrs Weight 165 lb Physical Exam Narrative: GENERAL: The patient is alert and oriented times three. Not in any acute distress. HEENT: Minimal pallor. No, icterus or lymphadenopathy.Oral cavity: There are no mucous membrane lesions. NECK: Trachea appears to be central. No masses noted. No JVD or thyromegaly appreciated. RESPIRATORY: Chest is symmetrical. No intercostals muscle retraction or any accessory muscle activation. There is no chest wall tenderness. Breath sounds are heard bilaterally. Minimal diminished intensity of breath sounds in the bases. Scattered bilateral expiratory wheezing BREASTS: Deferred. HEART: The heart sounds are normal. No S3 or S4. No significant murmurs. No pericardial rub ABDOMEN: No vessel pulsations or distention. No tenderness. No organomegaly appreciated. Bowel sounds are normally heard. : Deferred. RECTAL: Deferred. LYMPHATIC: No lymphadenopathy noted in the neck. EXTREMITIES: No edema or cyanosis. No clubbing. The posterior tibial and dorsalis pedis pulses are very feeble on the right side. Almost nonpalpable on the left side. MUSCULOSKELETAL: No acute joint deformities or swelling SKIN: There are no significant rashes or ecchymosis NEUROPSYCHIATRIC: The patient is alert and oriented x3. Appears to be in a good mood. No tremors or rigidity noted. Data 05/19/24 06:23 05/19/24 06:23 Other Labs: Laboratory Last Values WBC 8.77 10^3/uL (3.29-11.43) 05/19/24 06:23 RBC 5.40 10^6/uL (3.85-5.65) 05/19/24 06:23 Hgb 14.80 g/dL (11.27-16.99) 05/19/24 06:23 Hct 45.8 % (37-53) 05/19/24 06:23 MCV 84.8 fl (82-101) 05/19/24 06:23 MCH 27.4 pg (27-33) 05/19/24 06: MCHC 32.3 g/dL (30-55) 05/19/24 06:23 RDW 13.7 % (12.1-15.1) 05/19/24 06:23 Plt Count 244 10^3/cmm (157-399) 05/19/24 06:23 MPV 9.7 fL (7.4-10.4) 05/19/24 06:23 Neut % (Auto) 56.4 % 05/19/24 06:23 Lymph % (Auto) 29.9 % 05/19/24 06:23 [place] % (Auto) 8.6 % 05/19/24 06:23 Eos % (Auto) 3.4 % 05/19/24 06:23 Baso % (Auto) 1.4 % 05/19/24 06:23 Neut # (Auto) 4.95 10^3/uL (1.8-7.7) 05/19/24 06:23 Lymph # (Auto) 2.6 10^3/uL (0.8-4.8) 05/19/24 06:23 [place] # (Auto) 0.8 10^3/uL (0.2-0.9) 05/19/24 06:23 Eos # (Auto) 0.3 10^3/uL (0.0-0.8) 05/19/24 06:23 Baso # (Auto) 0.1 10^3/uL (0.0-0.1) 05/19/24 06:23 Nucleated RBC % (auto) 0 % 05/19/24 06:23 Nucleated RBCs # 0.0 /100WBC 05/19/24 06:23 Sodium 140 mmol/L (136-145) 05/19/24 06:23 Potassium 4.0 mmol/L (3.5-5.1) 05/19/24 06:23 Chloride 100 mmol/L (98-107) 05/19/24 06:23 Carbon Dioxide 26 mmol/L (22-29) 05/19/24 06:23 Anion Gap 18.0 (5-19) 05/19/24 06:23 BUN 14 mg/dL (8-23) 05/19/24 06:23 Creatinine 1.1 mg/dL (0.7-1.2) 05/19/24 06:23 GFR Calculation Not Reportable 05/19/24 06:23 Glucose 107 mg/dL (65-115) 05/19/24 06:23 Calculated Osmolality 291 mOsm/kg (285-295) 05/19/24 06:23 Calcium 9.8 mg/dL (8.5-10.5) 05/19/24 06:23 A&P Assessment and plan (1) Peripheral arterial disease with history of revascularization: In view of the patient's ongoing symptoms, in order to further evaluate his peripheral arteries, a peripheral angiogram is recommended. (2) HTN (hypertension): Slightly elevated or stage II. Will try to optimize his antihypertensive medications. Qualifiers: Hypertension type: primary hypertension Qualified Code(s): I10 - Essential (primary) hypertension (3) Hyperlipidemia: May continue on the current medications. Qualifiers: Hyperlipidemia type: mixed hyperlipidemia Qualified Code(s): E78.2 - Mixed hyperlipidemia (4) Nicotine addiction: The patient has decided not to quit smoking Qualifiers: Nicotine product type: cigarettes Substance use status: unspecified nicotine-induced disorder Qualified Code(s): F17.219 - Nicotine dependence, cigarettes, with unspecified nicotine-induced disorders (5) Atherosclerosis of coronary artery of [place] heart without angina pectoris: Had a recent Myocardial perfusion imaging which was unremarkable. He is asymptomatic. Qualifiers: Coronary Disease-Associated Artery/Lesion type: [place] artery Qualified Code(s): I25.10 - Atherosclerotic heart disease of [place] coronary artery without angina pectoris (6) Type 2 diabetes mellitus: Fairly under control Qualifiers: Diabetes mellitus complication status: without complication Diabetes mellitus technician terminal and repeater insulin use: with technician terminal and repeater use Qualified Code(s): E11.9 - Type 2 diabetes mellitus without complications; Z79.4 - terminal system operator (current) use of insulin Plan Regarding the peripheral angiogram today. He may require peripheral artery intervention which will be decided afterwards. Because of the blood constraints in the hospital, we may not be able to do the intervention today. This was discussed with the patient and his family in detail. The risk of bleeding, vascular injury, distal embolization causing ischemia, gangrene and concomitant complications etc. were discussed in detail with the patient and his family which they understood well and consented to proceed PDMP PDMP Reviewed: Not Reviewed Attestations Medical Necessity Statement*: Patient may require an overnight stay Coding Level of Care Code 62604 Diagnoses Peripheral arterial disease with history of revascularization I73.9; Z98.890 Primary hypertension I10 Hypertension type: primary hypertension Mixed hyperlipidemia E78.2 Hyperlipidemia type: mixed hyperlipidemia Cigarette nicotine dependence with nicotine-induced disorder F17.219 Nicotine product type: cigarettes Substance use status: unspecified nicotine-induced disorder Atherosclerosis of [place] coronary artery of [place] heart without angina pectoris I25.10 Coronary Disease-Associated Artery/Lesion type: [place] artery Type 2 diabetes mellitus without complication, with long-term current use of insulin E11.9; Z79.4 Diabetes mellitus complication status: without complication Diabetes mellitus usp insulin use: with technician terminal and repeater use
--- NOTE | 2024-05-19 10:24 | PC.NURSE ---
Sheath Pull Right femoral sheath pulled at 0920 . Manual pressure held until 0945 and hemostasis acheived. No bruising, bleeding, or hematoma noted. Vital signs charted. Pt tolerated well, no complaints of pain. DP and PT pulses assessed and present with doppler. Dressed with sterilel 4X4 and tegaderm. At 1000 gave patient few sips of water, pt started coughing. Groin site assessed at that time and found 4x4 of dressing to be saturated. No hematoma observed or palpated. Removed dressing and held manual pressure for additional 15 minutes. Site asymptomatic, no signs of bleeding or hematoma. Site redressed with sterile 4X4 and tegaderm. Daughter updated. Call light in reach.
[2024-05-19] MEDS: ipratropium 0.5 mg/2.5 mL Neb INHALATION (15:40)
[2024-05-19] MEDS: gabapentin 300 mg Capsule PO (16:11)
--- NOTE | 2024-05-19 16:59 | PC.NURSE ---
Patient is a resident of [facility]- Patient's PCP is , who sees patient in house to [facility].
[2024-05-19] MEDS: cilostazol 100 mg Tablet 50 MG PO (17:04)
== END 2024-05-19 17:45 | disposition home or self-care (01) ==
LOC: CCL 06:04 → CSU 14:36
PROVIDERS: PCP Internal Medicine; Visit Provider Internal Medicine Cardiovascular Disease
DX: I70.202 Unspecified atherosclerosis of native arteries of extremities, left leg (principal); Z98.890 Other specified postprocedural states; I10 Essential (primary) hypertension; E78.2 Mixed hyperlipidemia; F17.219 Nicotine dependence, cigarettes, with unspecified nicotine-induced disorders; I25.10 Atherosclerotic heart disease of native coronary artery without angina pectoris; E11.9 Type 2 diabetes mellitus without complications; Z79.4 Long term (current) use of insulin; J44.9 Chronic obstructive pulmonary disease, unspecified; N40.0 Benign prostatic hyperplasia without lower urinary tract symptoms; G47.33 Obstructive sleep apnea (adult) (pediatric)
CPT/HCPCS: 36415; 75625; 75716; 80048; 85025; 94640; 96374; 99152; 99153; C1769; C1887; C1894; J1644; J2250; J3010; J7030; J7613; J7644; Q0163; Q9967

== ENCOUNTER → 2024-06-04 15:51 | Outpatient (BNVA) | payer OTHER, SELFPAY | PROVIDERS: PCP Internal Medicine; Visit Provider Nurse Practitioner Family | DX: I73.9 Peripheral vascular disease, unspecified (principal); Z98.890 Other specified postprocedural states; I25.10 Atherosclerotic heart disease of native coronary artery without angina pectoris; I10 Essential (primary) hypertension; F17.219 Nicotine dependence, cigarettes, with unspecified nicotine-induced disorders; E78.2 Mixed hyperlipidemia | CPT/HCPCS: 99214 ==

== ENCOUNTER 2024-07-02 11:07 | Emergency (ER) | payer OTHER, SELFPAY ==
[2024-07-02 11:10] VITALS: BP 132/65; PULSE 77; RESP 34; TEMP 37.1; O2SAT 93; BMI 22.7
--- NOTE | 2024-07-02 11:26 | XR_ITS ---
WS: [id number] Exam: XR chest 1V portable [id number] Date/Time of Exam: 07/02/2024 11:34 AM Reason For Exam: sob Comparison 08/04/2020. Lungs are fully inflated and clear. Mild chronic interstitial changes noted. No pleural effusions. Heart size is normal. The mediastinum is normal in contour. Bony structures are intact. Surgical clips in the RIGHT and LEFT neck. XR/XR chest 1V portable [id number] IMPRESSION: 1. No acute cardiopulmonary finding.
--- NOTE | 2024-07-02 11:26 | ECG_ITS ---
[facility] Pat Name: Asif Sky Department: Room: Gender: Male Scorekeeper: : 1945 Requested By: Perry Felton Order Number: [id number] Jacobo MD: Nick Booker M.D. Measurements Intervals Cornelius Rate: 102 P: 48 [place]: 184 QRS: 60 QRSD: 114 T: 56 QT: 327 QTc: 426 Interpretive Statements SINUS TACHYCARDIA WITH FREQUENT VENTRICULAR PREMATURE COMPLEXES MODERATE INTRAVENTRICULAR CONDUCTION DELAY [110+ ms QRS DURATION] NONSPECIFIC ST & T-WAVE ABNORMALITY ABNORMAL RHYTHM ECG Compared to ECG 03/05/2024 16:28:24 Sinus rhythm no longer present First degree AV block no longer present T-wave abnormality still present Electronically Signed On 07-02-2024 12:26:01 CDT by Nick Booker M.D. [id number]
[2024-07-02] MEDS: ipratropium-albuterol 3 mL Neb INHALATION (11:36)
[2024-07-02] MEDS: albuterol 2.5 mg/3 mL Neb INHALATION (11:36)
[2024-07-02 11:37] VITALS: PULSE 101; RESP 26; O2SAT 95
--- NOTE | 2024-07-02 11:37 | W.ED.SOB ---
HPI - SOB/Dyspnea General: Chief Complaint: Shortness of Breath/Dyspnea Stated Complaint: SOB Time Seen by Provider: 07/02/24 11:10 Source: patient Mode of arrival: ambulatory Limitations: no limitations History of Present Illness: HPI Narrative: 79-year-old male has a history of COPD patient had a rapid response called from cardiac clinic. He has been having increasing cough shortness of breath of the last 2 to 3 days. He states that he typically does not wear oxygen at home he is requiring 4 L here. Denies any chest pain denies any fevers Associated symptoms: Deny abdominal pain, chest pain, fever(s), nausea or vomiting Related Data Home Medications ?Medication ?Instructions ?Recorded ?Confirmed cyclobenzaprine 10 mg tablet 10 mg PO BID PRN MUSCLE CRAMPS 07/30/19 07/02/24 tamsulosin 0.4 mg capsule 0.4 mg PO BID 07/30/19 07/02/24 albuterol sulfate 2.5 mg/3 mL 2.5 mg inhalation Q4H PRN 03/13/22 07/02/24 (0.083 %) solution for nebulization Shortness Of Breath finasteride 5 mg tablet 5 mg PO BEDTIME 03/13/22 07/02/24 naloxone 0.4 mg/mL injection 0.4 mg SUBCUT Q2M PRN overdose 03/13/22 07/02/24 solution polyethylene glycol 3350 17 17 g PO DAILY PRN Constipation 03/13/22 07/02/24 gram/dose oral powder (Miralax) aspirin 81 mg tablet,delayed 81 mg PO DAILY 05/19/24 07/02/24 release guaifenesin 600 mg tablet, 600 mg PO BID 05/19/24 07/02/24 extended release 12 hr (Mucinex) acetaminophen 160 mg/5 mL oral See Rx Instructions .Route 07/02/24 07/02/24 liquid (Children's Acetaminophen) .COMPLEX PRN pain or temp albuterol sulfate 90 mcg/actuation 2 puff inhalation QID PRN SOB 07/02/24 07/02/24 aerosol inhaler amlodipine 5 mg tablet 5 mg PO DAILY 07/02/24 07/02/24 atorvastatin 40 mg tablet 40 mg PO BEDTIME 07/02/24 07/02/24 buspirone 5 mg tablet 5 mg PO BID 07/02/24 07/02/24 fluticasone 250 mcg-salmeterol 50 1 inh inhalation BID 07/02/24 07/02/24 mcg/dose blistr powdr for inhalation gabapentin 300 mg capsule 30 mg PO TID 07/02/24 07/02/24 hydroxyzine HCl 25 mg tablet 25 mg PO BEDTIME 07/02/24 07/02/24 ipratropium bromide 0.02 % See Rx Instructions .Route .COMPLEX 07/02/24 07/02/24 solution for inhalation lidocaine HCl 2 % mucosal solution See Rx Instructions .Route .COMPLEX 07/02/24 07/02/24 magnesium hydroxide 400 mg/5 mL 30 ml PO DAILY PRN Constipation 07/02/24 07/02/24 oral suspension (Milk of Magnesia) oxycodone 5 mg tablet 5 mg PO Q4H PRN Pain 07/02/24 07/02/24 pantoprazole 40 mg tablet,delayed 40 mg PO BID 07/02/24 07/02/24 release sodium chloride 0.65 % nasal spray 1 spray intranasal TID PRN 07/02/24 07/02/24 aerosol (Saline Nasal) allergic rhinitis venlafaxine 225 mg tablet,extended 225 mg PO QAM 07/02/24 07/02/24 release 24 hr Previous Rx's ?Medication ?Instructions ?Recorded cilostazol 100 mg tablet 100 mg PO BID #180 tabs 06/04/24 doxycycline hyclate 100 mg tablet 100 mg PO BID 7 days #14 tabs 07/02/24 ondansetron 4 mg disintegrating 4 mg PO Q6H PRN nausea and 07/02/24 tablet vomiting #14 tabs Allergies Allergy/AdvReac Type Severity Reaction Status Date / Time No Known Allergies Allergy Verified 07/02/24 11:09 Review of Systems Const: Denies: fever(s), chills, body aches or change in appetite ENMT: Denies: throat pain or dental pain Card: Denies: chest pain Resp: Reports: dyspnea and non-productive cough GI: Denies: abdominal pain, nausea, vomiting or diarrhea Musc: Denies: neck pain or back pain Skin/Breast: Denies: rash Neuro: Denies: headache(s) PFSH ED PFSH: Medical History CAD (coronary artery disease) Rhabdomyolysis Hypoxia Acute hypotension Acute renal failure Drug overdose COPD (chronic obstructive pulmonary disease) HTN (hypertension) Depression with anxiety BPH (benign prostatic hyperplasia) Hypercalcemia Hyperlipidemia Chronic ischemic heart disease Lumbago PVD (peripheral vascular disease) MIKE (obstructive sleep apnea) Type 2 diabetes mellitus Impotence Surgical History S/P PTCA (percutaneous transluminal coronary angioplasty) S/P peripheral artery angioplasty with stent placement Social History Smoking and tobacco/nicotine status: current every day tobacco/nicotine user cigarettes Packs smoked per day: 1 Years cigarettes smoked: 55 Quit status (tobacco/nicotine): not considering quitting Alcohol intake: current Alcohol intake frequency: 0-2 Drinks per Day Alcohol type: beer Substance/Drug Use: never Caregiver/support person: Yes Lives independently: Yes Household members: family service: Yes Current occupational status: retired and disabled Do you think of yourself as: Straight/Heterosexual Current gender identity: Male Physical Exam Const: COMMON NORMALS: patient oriented x3 and healthy appearing HENMT: COMMON NORMALS: normocephalic and atraumatic HEAD & SCALP: normocephalic and atraumatic Eye: COMMON NORMALS: conjunctivae normal CONJUNCTIVA: Yes conjunctivae normal Neck/C-Spine: COMMON NORMALS: full ROM and supple Chest: COMMONS NORMALS: normal inspection of the chest Resp: COMMON NORMALS: No retractions and No use of accessory muscles AUSCULTATION: diminished lung sounds Cardio: COMMON NORMALS: regular rhythm and No murmurs present (Cardio) RATE: tachycardic RHYTHM: regular rhythm GI: COMMON NORMALS: Normal to inspection, nondistended, normoactive bowel sounds present, Soft to palpation, non-tender and no masses PALPATION: Yes Soft to palpation Extremity: COMMON NORMALS: normal to inspection and full ROM Neuro: COMMON NORMALS: patient oriented x3, moves all extremities and no focal motor deficits Psych: COMMON NORMALS: mental status grossly normal, Normal thought process present and cooperative THOUGHT PROCESS: Normal thought process present Skin: COMMON NORMALS: no rashes or lesions noted and no wounds GENERAL SKIN EXAM: no rashes or lesions noted Course Vital Signs: Vital signs: Vital Signs Temperature 98.7 F 07/02/24 11:10 Pulse Rate 94 07/02/24 13:01 Respiratory Rate 16 07/02/24 13:01 Blood Pressure 124/90 07/02/24 13:01 Pulse Oximetry 95 07/02/24 13:01 Oxygen Delivery Me thod Room Air 07/02/24 13:01 Oxygen Flow Rate 5 07/02/24 11:37 MDM - SOB/Dyspnea Medical Decision Making Patient presents here with shortness of breath likely COPD and bronchitis CTA showed no acute findings did go over the other findings on CT with him he is wanting go back to the shelter he is to wear 2 to 3 L at the nursing we will start him on antibiotics along with steroids. Medical Records I reviewed the patient's medical records. Lab Data I reviewed the patient's lab results. 07/02/24 11:30 07/02/24 11:30 Labs/Radiology: Radiology Impressions Chest X-Ray 07/02/24 11:26 IMPRESSION: 1. No acute cardiopulmonary finding. Chest CTA 07/02/24 12:27 IMPRESSION: 1. No evidence of pulmonary embolus. 2. Moderate chronic emphysematous changes. No focal pneumonia or pleural fluid. 3. Slight hazy groundglass opacities in the lung bases. Findings may be infectious or inflammatory pneumonitis. 4. Spiculated nodule RIGHT upper lobe measuring 10 mm. Neoplasm not excluded. Recommend short interval follow-up chest CT in 3 to 4 weeks after treatment and if persistent recommend further evaluation with PET/CT. 5. No other acute findings. Laboratory Results WBC 10.82 10^3/uL (3.29-11.43) 07/02/24 11:30 RBC 5.03 10^6/uL (3.85-5.65) 07/02/24 11:30 Hgb 13.50 g/dL (11.27-16.99) 07/02/24 11:30 Hct 41.6 % (37-53) 07/02/24 11:30 MCV 82.7 fl (82-101) 07/02/24 11:30 MCH 26.8 pg (27-33) L 07/02/24 11:30 MCHC 32.5 g/dL (30-55) 07/02/24 11:30 RDW 14.3 % (12.1-15.1) 07/02/24 11:30 Plt Count 266 10^3/cmm (157-399) 07/02/24 11:30 MPV 9.2 fL (7.4-10.4) 07/02/24 11:30 Neut % (Auto) 84.4 % 07/02/24 11:30 Lymph % (Auto) 7.5 % 07/02/24 11:30 [place] % (Auto) 6.7 % 07/02/24 11:30 Eos % (Auto) 0.4 % 07/02/24 11:30 Baso % (Auto) 0.6 % 07/02/24 11:30 Neut # (Auto) 9.14 10^3/uL (1.8-7.7) H 07/02/24 11:30 Lymph # (Auto) 0.8 10^3/uL (0.8-4.8) 07/02/24 11:30 [place] # (Auto) 0.7 10^3/uL (0.2-0.9) 07/02/24 11:30 Eos # (Auto) 0.0 10^3/uL (0.0-0.8) 07/02/24 11:30 Baso # (Auto) 0.1 10^3/uL (0.0-0.1) 07/02/24 11:30 Nucleated RBC % (auto) 0 % 07/02/24 11:30 Nucleated RBCs # 0.0 /100WBC 07/02/24 11:30 Specimen Type Arterial 07/02/24 11:34 Sample Site Radial, right 07/02/24 11:34 ABG pH 7.46 (7.35-7.45) H 07/02/24 11:34 ABG pCO2 40.8 mmHg (35-45) 07/02/24 11:34 ABG pO2 78.5 mmHg (80.0-100.0) L 07/02/24 11:34 ABG PO2/FiO2 Ratio 196 07/02/24 11:34 ABG HCO3 28.7 mmol/L (22-26) H 07/02/24 11:34 ABG Base Excess 4.4 mmol/L (-2.0-2.0) H 07/02/24 11:34 [place] Test Pos 07/02/24 11:34 Hematocrit 40.8 % (42-52) L 07/02/24 11:34 Hgb O2 Saturation 94.1 % (95-100) L 07/02/24 11:34 Carboxyhemoglobin 2.3 %THgb (0.4-20.1) 07/02/24 11:34 Methemoglobin 0.3 % (0.4-1.5) L 07/02/24 11:34 Total Hemoglobin 13.3 g/dL (14-18) L 07/02/24 11:34 O2 Delivery Device Nc 07/02/24 11:34 O2 Liters/Min 5.0 % 07/02/24 11:34 FiO2 40.0 % 07/02/24 11:34 [employer] Assistant ID [place] 07/02/24 11:34 Sodium 137 mmol/L (136-145) 07/02/24 11:30 Potassium 4.2 mmol/L (3.5-5.1) 07/02/24 11:30 Chloride 98 mmol/L (98-107) 07/02/24 11:30 Carbon Dioxide 27 mmol/L (22-29) 07/02/24 11:30 Anion Gap 16.2 (5-19) 07/02/24 11:30 BUN 16 mg/dL (8-23) 07/02/24 11:30 Creatinine 1.0 mg/dL (0.7-1.2) 07/02/24 11:30 GFR Calculation Not Reportable 07/02/24 11:30 Glucose 147 mg/dL (65-115) H 07/02/24 11:30 Calculated Osmolality 288 mOsm/kg (285-295) 07/02/24 11:30 Calcium 9.3 mg/dL (8.5-10.5) 07/02/24 11:30 Total Bilirubin 0.5 mg/dL (0.15-1.2) 07/02/24 11:30 AST 7 U/L (0-40) 07/02/24 11:30 ALT 8 U/L (0-41) 07/02/24 11:30 Alkaline Phosphatase 153 U/L (40-130) H 07/02/24 11:30 Troponin T Baseline 28 ng/L (0-15) H 07/02/24 11:30 NT-Pro-B Natriuret Pep 604 pg/mL (0-450) H 07/02/24 11:30 Total Protein 6.4 g/dL (6.6-8.7) L 07/02/24 11:30 Albumin 3.8 g/dL (3.5-5.2) 07/02/24 11:30 Globulin 2.6 g/dL (1.3-4.6) 07/02/24 11:30 Influenza A (PCR) Negative (Negative) 07/02/24 11:59 Influenza Type B (PCR) Negative (Negative) 07/02/24 11:59 RSV (PCR) Negative (Negative) 07/02/24 11:59 SARS-CoV-2 (PCR) Negative (Negative) 07/02/24 11:59 All radiology interpretation(s) finalized by discharge EKG Data EKG 1: I personally reviewed and interpreted this EKG as follows: EKG Interpretation Date: 07/02/24 EKG interpretation time: 11:13 Interpretation: sinus tach hr [address] or t wave abnormalities qrs 114 qtc 386 Discharge Plan Discharge Patient Disposition: Home Clinical Impression: Bronchitis Condition: Stable Prescriptions: New ondansetron 4 mg tablet,disintegrating 4 mg PO Q6H PRN (Reason: nausea and vomiting) Qty: 14 0RF doxycycline hyclate 100 mg tablet 100 mg PO BID 7 Days Qty: 14 0RF No Action cyclobenzaprine 10 mg tablet 10 mg PO BID PRN (Reason: MUSCLE CRAMPS) tamsulosin 0.4 mg capsule 0.4 mg PO BID cilostazol 100 mg tablet 100 mg PO BID Qty: 180 3RF albuterol sulfate 2.5 mg /3 mL (0.083 %) solution for nebulization 2.5 mg inhalation Q4H PRN (Reason: Shortness Of Breath) naloxone 0.4 mg/mL solution 0.4 mg SUBCUT Q2M PRN (Reason: overdose) Rx Instructions: NTExceed 10 mg total dose/episode polyethylene glycol 3350 [Miralax] 17 gram/dose powder 17 g PO DAILY PRN (Reason: Constipation) finasteride 5 mg tablet 5 mg PO BEDTIME guaifenesin [Mucinex] 600 mg Tablet Extended Release 12hr 600 mg PO BID aspirin 81 mg Tablet,Delayed Release (Dr/Ec) 81 mg PO DAILY atorvastatin 40 mg tablet 40 mg PO BEDTIME buspirone 5 mg tablet 5 mg PO BID fluticasone propion-salmeterol 250-50 mcg/dose blister with device 1 inh INHALATION BID acetaminophen [Children's Acetaminophen] 160 mg/5 mL Liquid See Rx Instructions .ROUTE .COMPLEX PRN (Reason: pain or temp) Rx Instructions: Give 20.3 ml every 6 hours as needed for pain or temp. amlodipine 5 mg tablet 5 mg PO DAILY magnesium hydroxide [Milk of Magnesia] 400 mg/5 mL Suspension 30 ml PO DAILY PRN (Reason: Constipation) pantoprazole 40 mg tablet,delayed release (DR/EC) 40 mg PO BID gabapentin 300 mg capsule 30 mg PO TID lidocaine HCl 2 % solution See Rx Instructions .ROUTE .COMPLEX Rx Instructions: Apply 1 gram to mucous membrane every 4 hours as needed for mouth lesions or pain. hydroxyzine HCl 25 mg tablet 25 mg PO BEDTIME albuterol sulfate 90 mcg/actuation HFA aerosol inhaler 2 puff INHALATION QID PRN (Reason: SOB) ipratropium bromide 0.02 % solution See Rx Instructions .ROUTE .COMPLEX Rx Instructions: Take 1 puff by inhalation twice daily for COPD. oxycodone 5 mg tablet 5 mg PO Q4H PRN (Reason: Pain) Saline Nasal 0.65 % Aerosol,[place] 1 spray INTRANASAL TID PRN (Reason: allergic rhinitis) venlafaxine 225 mg tablet extended release 24hr 225 mg PO QAM Discharge Orders: Discharge ED (Routine); Ordered 07/02/24 Ordered By: Perry Felton Referrals: Hoang Hancock DO [Primary Care Provider] - 4-7 days Discharge Diet: Advance as tolerated Discharge Activity: Resume usual activity Patient Instructions: Acute Bronchitis (ED) Print Language: Persian Coding Level of Care Code ED Bulb Inspector for Jayson Parker
[2024-07-02 11:39] LABS: Basophils # 0.1 10^3/uL (0.0-0.1); Basophils % 0.6 %; Eosinophils % 0.4 %; Hematocrit 41.6 % (37-53); Lymphocytes # 0.8 10^3/uL (0.8-4.8); Lymphocytes % 7.5 %; Mean Corpuscular HGB Conc 32.5 g/dL (30-55); Mean Corpuscular Hemoglobin 26.8 pg (27-33); Mean Corpuscular Volume 82.7 fl (82-101); Mean Platelet Volume 9.2 fL (7.4-10.4); Monocytes # 0.7 10^3/uL (0.2-0.9); Monocytes % 6.7 %; Neutrophils # 9.14 10^3/uL (1.8-7.7); Neutrophils % 84.4 %; Nucleated Red Blood Cells % 0 %; Platelet Count 266 10^3/cmm (157-399); Red Blood Count 5.03 10^6/uL (3.85-5.65); Red Cell Distribution Width 14.3 % (12.1-15.1); White Blood Count 10.82 10^3/uL (3.29-11.43)
[2024-07-02 11:46] LABS: ABG PCO2 40.8 mmHg (35-45); ABG PH Result 7.46 (7.35-7.45); Arterial Blood Gas Hematocrit 40.8 % (42-52); Base Excess ABG 4.4 mmol/L (-2.0-2.0); Blood Gas Allen Test Pos; Blood Gas Operator Identificat MONRO; Blood Gas Sample Site Radial, right; Blood Gas Sample Type Arterial; Carboxyhemoglobin 2.3 %THgb (0.4-20.1); HCO3 ABG 28.7 mmol/L (22-26); HGB O2 Sat 94.1 % (95-100); Methemoglobin 0.3 % (0.4-1.5); Oxygen Device NC; PO2 ABG 78.5 mmHg (80.0-100.0); PO2 FiO2 Ratio Arterial Blood 196; Total Hemoglobin 13.3 g/dL (14-18)
[2024-07-02 11:48] VITALS: PULSE 102
--- NOTE | 2024-07-02 11:48 | PC.PHAR ---
Addendum entered by Yady Savage 07/02/24 12:09: Pt is resident at [facility] Facility Addendum entered by Yady Savage 07/02/24 12:03: Pt is not from [facility] Original Note: Pt is from [facility]
[2024-07-02] MEDS: methylPREDNISolone sod succ 125 mg/2 mL INJ IV (11:56)
[2024-07-02 11:57] LABS: Troponin(5th) Baseline 28 ng/L (0-15)
[2024-07-02 12:08] LABS: Alanine Aminotransferase 8 U/L (0-41); Albumin Level 3.8 g/dL (3.5-5.2); Alkaline Phosphatase 153 U/L (40-130); Anion Gap 16.2 (5-19); Aspartate Amino Transferase 7 U/L (0-40); Blood Urea Nitrogen 16 mg/dL (8-23); Calcium 9.3 mg/dL (8.5-10.5); Carbon Dioxide 27 mmol/L (22-29); Chloride 98 mmol/L (98-107); Creatinine Clr Calc Pharmacy 56.8061; Globulin 2.6 g/dL (1.3-4.6); Glucose 147 mg/dL (65-115); NT Pro B Type Natriuretic Pept 604 pg/mL (0-450); Osmolality Calculated 288 mOsm/kg (285-295); Potassium 4.2 mmol/L (3.5-5.1); Sodium 137 mmol/L (136-145); Total Bilirubin 0.5 mg/dL (0.15-1.2); Total Protein 6.4 g/dL (6.6-8.7)
--- NOTE | 2024-07-02 12:27 | CT_ITS ---
WS: [id number] CTA OF THE CHEST WITH PULMONARY EMBOLISM PROTOCOL TECHNIQUE: High-resolution contrast enhanced CTA of the chest with coronal and sagittal reformatted images with pulmonary embolism protocol. MIP images are also reviewed. CLINICAL INFORMATION: sob COMPARISON: CT chest 03/12/2024 DLP: 276.[address] scans at [facility] use at least one of these dose optimization techniques: automated exposure control; mA and/or kV adjustment per patient size (includes targeted exams where dose is matched to clinical indication); or iterative reconstruction. FINDINGS: Proximal main pulmonary arteries are normal. Normal segmental and subsegmental pulmonary arteries. No evidence of pulmonary embolus. No focal pneumonia. A few hazy groundglass opacities in the lung bases. Slightly spiculated nodule RIGHT upper lobe measuring 10 mm. This is new since 03/12/2024 and may be infectious or inflammatory but neoplasm not excluded. Recommend short interval follow-up CT after treatment. Aortic calcification. Coronary calcification. No mediastinal or hilar lymphadenopathy. CT/CT angio chest PE protcl [id number] IMPRESSION: 1. No evidence of pulmonary embolus. 2. Moderate chronic emphysematous changes. No focal pneumonia or pleural fluid . 3. Slight hazy groundglass opacities in the lung bases. Findings may be infect ious or inflammatory pneumonitis. 4. Spiculated nodule RIGHT upper lobe measuring 10 mm. Neoplasm not excluded. Recommend short interval follow-up chest CT in 3 to 4 weeks after treatment and if persistent recommend further evaluation with PET/CT. 5. No other acute findings.
[2024-07-02] MEDS: iohexol 350 mg/mL 500 mL Btl (per mL) IV (12:42)
[2024-07-02 12:50] LABS: Influenza A NEGATIVE (Negative); Influenza B NEGATIVE (Negative); Respiratory Syncytial Virus Ce NEGATIVE (Negative); SARS-CoV-2 PCR NEGATIVE (Negative)
[2024-07-02 13:01] VITALS: BP 124/90; PULSE 94; RESP 16; O2SAT 95
[2024-07-02] MEDS: doxycycline 100 mg Tablet PO (13:39)
[2024-07-02 13:52] VITALS: BP 132/65; PULSE 92; O2SAT 91
== END 2024-07-02 13:53 | disposition home or self-care (01) ==
PROVIDERS: Emergency Provider Emergency Medicine; PCP Internal Medicine
DX: J40 Bronchitis, not specified as acute or chronic (principal); Z11.52 Encounter for screening for COVID-19; Z79.82 Long term (current) use of aspirin; F17.210 Nicotine dependence, cigarettes, uncomplicated; J44.9 Chronic obstructive pulmonary disease, unspecified; E11.9 Type 2 diabetes mellitus without complications; I25.10 Atherosclerotic heart disease of native coronary artery without angina pectoris; E78.5 Hyperlipidemia, unspecified
CPT/HCPCS: 36600; 71045; 71275; 80053; 82805; 83880; 84484; 85025; 87637; 93005; 94640; 96374; 99285; J2919; J7613; J9999